=== PATIENT | female | born 1985 | race Caucasian/White ===

== ENCOUNTER → 2017-12-18 17:06 | Outpatient (CLI) | payer OTHER, SELFPAY ==
--- NOTE | 2017-12-18 17:16 | MRI_ITS ---
STUDY: MRI BRAIN WITH AND WITHOUT CONTRAST REASON FOR EXAM: Female, 32 years old. BRAIN LESION WHITE MATTER. 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 Symptoms resolved now TECHNIQUE: Standardized multiplanar fat and water weighted pulse sequences were obtained. 7 ml of Gadavist contrast material was administered intravenously for the contrast portion of the examination. COMPARISON: None. FINDINGS: Normal size of the ventricles and extra-axial spaces for the patient's age. There is increased T2 signal lesion in the periventricular white matter in the left temporal lobe shows mild peripheral enhancement after contrast administration may represent a demyelinating lesion. Normal bilateral basal ganglia. Normal thalami. There is no extra-axial fluid accumulation. Normal flow voids within the major intracranial circulation suggesting patency by spin echo criteria. Normal venous enhancement. There is no enhancing intra-axial or extra-axial abnormality. Normal sella turcica, pituitary gland, infundibular stalk, optic chiasm and hypothalamus. Normal tectal plate and pineal gland. Normal midbrain, loki and medulla. Normal cerebellum. Normal basal cisterns. Normal bilateral temporal bones. Normal bilateral internal auditory canals. No demonstrated orbital abnormality, within the constraints of a routine brain study. Normal visualized paranasal sinuses. Normal calvarium and skull base. Normal visualized soft tissue structures. Normal visualized upper cervical spine. MRI/Brain W/WO Contrast IMPRESSION: There is increased T2 signal lesion in the periventricular white matter in the left temporal lobe shows mild peripheral enhancement after contrast administration may represent a demyelinating lesion. Electronically Signed: Iraj Carrasquillo MD at 7:17 EST Tel , Service support ,
== END ==
PROVIDERS: Family Provider Family Medicine; PCP Family Medicine; Visit Provider Family Medicine
DX: G93.9 Disorder of brain, unspecified (principal)
CPT/HCPCS: 70553; A9585

== ENCOUNTER → 2017-12-26 13:14 | Outpatient (CLI) | payer OTHER, SELFPAY ==
[2017-12-26 14:08] LABS: Color, Urine Yellow (Yellow); Glucose, Dipstick Normal (Normal); Ketone-Dipstick Negative (Negative); Leukocyte Esterase-Dipstick 25 /ul (Negative); Nitrite-Dipstick Negative (Negative); Occult Blood-Urine Negative /ul (Negative); Protein-Dipstick Negative (Negative); Urine Bilirubin Dipstick Negative (Negative); Urine Clarity Sl. Cloudy (Clear); Urine Urobilinogen Normal (Normal); Urine pH 6.5 (5.0 - 8.0)
[2017-12-26 14:14] LABS: Absolute Lymphocyte Count 2.62 X10^3/ul (0.83-4.51); Absolute Neutrophil Count 3.5 X10^3/uL (2.0-7.7); Basophil# 0.03 X10^3/uL; Basophil% 0.4 % (0-1); Eosinophil# 0.11 X10^3/uL; Eosinophils% 1.6 % (0-5); Hematocrit 39.7 % (37-47); Hemoglobin 13.2 g/dl (12.0-15.0); Lymphocyte # 2.62 X10^3/ul (4.0); Lymphocyte % 37.8 % (19-41); Mean Corp Hgb Conc 33.2 g/gl (32-36); Mean Corpuscular Hgb 30.8 pg (27.0-32.0); Mean Corpuscular Volume 92.8 fL (81-99); Mean Platelet Vol. 9.8 fl (6.2-12.0); Monocyte# 0.71 X10^3/uL; Monocyte% 10.2 % (0-10); Neutrophil # 3.45 X10^3/uL (2.7-7.7); Neutrophil % 49.9 % (47-70); Platelet Count 293 K/mm3 (150-450); RBC Distribution Width CV 12.4 % (11.6-14.6); Red Blood Count 4.28 M/mm3 (4.2-5.4); White Blood Count 6.9 K/mm3 (4.4-11.0)
[2017-12-26 14:16] LABS: POSITIVE COUNT NO; POSITIVE DIFFERENTIAL NO; POSITIVE MORPHOLOGY NO
[2017-12-26 14:25] LABS: Erythrocyte Sedimentation Rate 1 mm/hr (0-20)
[2017-12-26 14:51] LABS: Vitamin D,25 Hydroxy 41.7 ng/mL (29.95-100.01)
[2017-12-29 14:14] LABS: ANTINUCLEAR ANTIBODIES DIRECT Negative (Negative)
== END ==
PROVIDERS: Family Provider Family Medicine; PCP Family Medicine; Visit Provider Family Medicine
DX: G93.9 Disorder of brain, unspecified (principal); I73.9 Peripheral vascular disease, unspecified; R43.8 Other disturbances of smell and taste; E55.9 Vitamin D deficiency, unspecified
CPT/HCPCS: 36415; 81002; 82306; 85025; 85652; 86038

== ENCOUNTER → 2019-01-04 13:02 | Outpatient (CLI) | payer OTHER, SELFPAY ==
[2019-01-04 14:49] LABS: Absolute Lymphocyte Count 2.25 X10^3/ul (0.83-4.51); Absolute Neutrophil Count 4.6 X10^3/uL (2.0-7.7); Basophil# 0.05 X10^3/uL; Basophil% 0.7 % (0-1); Eosinophil# 0.07 X10^3/uL; Eosinophils% 0.9 % (0-5); Hematocrit 43.6 % (37-47); Hemoglobin 14.4 g/dl (12.0-15.0); Lymphocyte # 2.25 X10^3/ul (4.0); Lymphocyte % 30.3 % (19-41); Mean Corpuscular Hgb 30.8 pg (27.0-32.0); Mean Corpuscular Volume 93.4 fL (81-99); Mean Platelet Vol. 9.8 fl (6.2-12.0); Monocyte# 0.45 X10^3/uL; Monocyte% 6.1 % (0-10); Neutrophil # 4.58 X10^3/uL (2.7-7.7); Neutrophil % 61.7 % (47-70); Platelet Count 474 K/mm3 (150-450); RBC Distribution Width CV 12.1 % (11.6-14.6); RBC Distribution Width SD 40.7 fl (35.1-43.9); Red Blood Count 4.67 M/mm3 (4.2-5.4); White Blood Count 7.4 K/mm3 (4.4-11.0)
[2019-01-04 14:52] LABS: POSITIVE COUNT NO; POSITIVE DIFFERENTIAL NO; POSITIVE MORPHOLOGY NO
[2019-01-04 14:53] LABS: Erythrocyte Sedimentation Rate 9 mm/hr (0-20)
[2019-01-04 15:01] LABS: ALB/GLOB Ratio 1.1 RATIO (0.9-2.4); AST(SGOT) 17 U/L (15-37); Alanine Aminotransfer ALT/SGPT 28 U/L (13-56); Albumin, Serum 4.2 g/dL (3.2-5.0); Alkaline Phosphatase 62 U/L (45-117); Anion Gap 9 (5-15); BUN 7 mg/dL (7-18); BUN/Creat Ratio 9.8 RATIO (10-20); CPK Total, Creatine Kinase 70 U/L (26-192); CRP < 2.90 mg/L (0.0-3.0); Calcium,Total 9.1 mg/dL (8.5-10.1); Chloride 107 mmol/L (98-107); Creatinine, Serum 0.72 mg/dL (0.55-1.02); EST Glomerular Filtration Rate 99 mL/min (>60); Est Glom Filt Rate - Afr Amer 120 mL/min (>60); Globulin 3.8 g/dL (2.2-4.2); Glucose 85 mg/dL (74-106); Potassium 3.6 mmol/L (3.5-5.1); Sodium Level 143 mmol/L (136-145)
== END ==
PROVIDERS: Family Provider Family Medicine; PCP Family Medicine; Visit Provider Family Medicine
DX: R20.2 Paresthesia of skin (principal); R29.898 Other symptoms and signs involving the musculoskeletal system; R42 Dizziness and giddiness; Z01.818 Encounter for other preprocedural examination
CPT/HCPCS: 36415; 80053; 82550; 85025; 85652; 86140

== ENCOUNTER → 2019-01-12 16:53 | Outpatient (CLI) | payer OTHER, SELFPAY ==
--- NOTE | 2019-01-12 17:30 | MRI_ITS ---
HISTORY: MS, LEFT leg weakness, LEFT arm weakness, paresthesias, imbalance TECHNIQUE: Multiplanar and multisequence MR images of the brain were obtained with and without IV gadolinium. IV Contrast dosage and agent: 12 cc dotarem COMPARISON: None FINDINGS: Interval improvement. The previously seen left temporal lobe white matter lesion is decreased in size, T2 bright, and currently shows no enhancement. Additional stable 7 mm T2 bright focus within the deep white matter posterior to the trigone of the right lateral ventricle and bordering the splenium. No new lesions. Normal ventricles. No intracranial hemorrhage or significant mass-effect. With contrast injection, no pathologic enhancement. Diffusion-weighted images are normal. Posterior fossa and midline structures show no signal abnormality. No suspicious extra-axial fluid collection. Normal flow voids within the major vessels. Normal internal auditory canals and cerebellopontine angle regions. As visualized, the mastoids and paranasal sinuses are clear. MRI/Brain W/WO Contrast IMPRESSION: 1. Interval improvement. The previously seen left temporal lobe white matter lesion is decreased in size and no longer enhances. 2. No new lesion, pathologic enhancement, or active MS plaques identified. at 0641 Reported and signed by: Gordon Souza MD Electronically Signed: Gordon Souza, at 6:39 EDT Tel , Service support ,
== END ==
PROVIDERS: Family Provider Family Medicine; PCP Family Medicine; Referring Provider Family Medicine; Visit Provider Family Medicine
DX: G37.9 Demyelinating disease of central nervous system, unspecified (principal); R20.2 Paresthesia of skin; R29.898 Other symptoms and signs involving the musculoskeletal system
CPT/HCPCS: 70553; A9575

== ENCOUNTER 2024-07-13 07:18 | Inpatient (IN) | payer OTHER, SELFPAY ==
[2024-07-13] VITALS (7 sets, daily range): BP systolic 111–131; BP diastolic 66–79; PULSE 77–100; RESP 11–20; TEMP 36.2–36.7; O2SAT 98–100; BMI 25.0; BMI 24.6
--- NOTE | 2024-07-13 07:48 | CT_ITS ---
STUDY: CT BRAIN WITHOUT CONTRAST REASON FOR EXAM: Female, 39 years old. Dysequilibrium, paresthesias RADIATION DOSAGE (If Supplied By Facility): CTDIvol = ( 44.99 ) mGy, DLP = ( 779.24 ) mGycm TECHNIQUE: Transaxial CT imaging of the brain was performed without administration of intravenous contrast material. Individualized dose optimization techniques were used for this CT. COMPARISON: No relevant priors. FINDINGS: Normal soft tissue structures. Normal calvarium. Normal size ventricles and extra-axial spaces for the patient''s age. Normal white matter tracts of the cerebral hemispheres. Normal basal ganglia and thalami. Normal brainstem. Normal cerebellum. There is no intracranial hemorrhage. There are no findings of an acute ischemic infarction. Normal visualized paranasal sinuses. CT/Brain/Head without Contrast IMPRESSION: Normal unenhanced CT scan of the brain. Electronically Signed: Derrick Cam MD at 8:47 EDT ,
--- NOTE | 2024-07-13 07:50 | EDS_ITS ---
HPI History of Present Illness Chief Complaint: Numb/Ting Informant: patient and parent Narrative Narrative: Patient presents with multiple symptoms that started 1 week ago. She is off balance when she walks. Numbness across to her mid abdomen wrapping around to her back. Stiffness in both of her hands without pain, but making it difficult to write and type for work. Occasional urinary incontinence. Weakness in her right foot yesterday, occasionally catching the front of her shoe on the ground when she would walk. She denies numbness tingling anywhere other than her trunk as above. No other weakness. She denies any vision changes including field of vision and/or blurriness, diplopia. No headaches. No back pain. No fevers. No saddle anesthesia. No chest or abdominal discomfort, shortness of breath, vomiting or diarrhea. No recent injury to her head or anywhere else. She states she had some numbness in the past and subsequently had an MRI with an abnormal lesion, that was suspicious for MS but she does not have the diagnosis because it has not happened again until now. However, this is all very different than it was before. [facility] Home Medications ?Medication ?Instructions ?Recorded ?Last Taken ?Type multivitamin,[id number]-zoja-xoighasd 1 tab PO QDAY 01/29/18 Unknown History (Complete Multivitamin tablet) Allergy/AdvReac Type Severity Reaction Status Date / Time No Known Allergies Allergy Unverified 01/29/18 10:55 Surgical History History of cholecystectomy Social History Smoking Status: Never smoker alcohol intake: current alcohol intake frequency: a few times a month Alcohol type: beer and wine ROS ROS ED Constitutional Constitutional ED: Denies chills or fever(s) Eyes Eyes: Denies change in vision or diplopia ENT ENT ED: Denies rhinorrhea or sore throat Cardiovascular Cardiovascular: Denies chest pain or palpitations Respiratory/Chest Respiratory/Chest: Denies cough or dyspnea Gastrointestinal Gastrointestinal: Denies abdominal pain, diarrhea, nausea or vomiting Genitourinary Genitourinary ED: Reports urinary incontinence; Denies dysuria or hematuria Musculoskeletal Musculoskeletal: Denies back pain or neck pain Integumentary Denies abscess or rash Neurologic Neurologic: Reports disequilibrium and paresthesias; Denies abnormal speech, headache(s), loss of vision, vertigo or weakness Psychiatric Psychiatric: Reports other Details: 1 year ago before the onset of this, I was supposed to get and I called it off. ; Denies suicidal thoughts EXAM Physical Exam Const Vital Signs: 07/13/24 07:19 07/13/24 09:28 07/13/24 11:32 Temperature 97.3 F L 97.4 F L 98.1 F Temperature Source Temporal Oral Oral Pulse Rate 100 88 91 Respiratory Rate 16 12 11 L Blood Pressure 111/74 131/71 H 112/72 Blood Pressure Mean 86 91 85 Pulse Ox 100 100 99 Oxygen Delivery Method Room Air Room Air Room Air Positive well nourished and well developed General Appearance ED: well developed and NAD HEENT Reports moist mucous membranes normocephalic and atraumatic Eyes PERRL and EOMs intact bilaterally Neck full ROM and supple Resp normal respiratory effort and clear to auscultation bilaterally Cardio regular rate, regular rhythm and no murmurs GI non-tender and non-distended Auscultation: normoactive bowel sounds Palpation: soft Back/Spine no CVA tenderness General Back: other FROM Extremity normal to inspection Extremity Narrative: Patient appears to have stiffness in her fingers, but there are no grossly swollen or erythematous joints. General Extremety ED: Negative for edema, pulses abnormal or tenderness General Extremity: Negative for edema or pulses abnormal Neuro oriented x3, CN's II-XII intact bilaterally and no focal motor deficits Neuro Narrative: Decree sensation to sharp provocation left more than right in dermatomal distribution just above the umbilicus, approximately T9. In the back, patient has a more broad area of decreased sharp sensation on the left, but sharp sensation is all normal throughout the right. Normal sensory both hands. Sensorium / Orientation: awake and alert Speech: speech normal Gait (Neuro): other nml except mildly ataxic, see below Motor Exam: strength 5/5 throughout Deep Tendon Reflexes: Rt Triceps (C7): 1+, Lt Triceps (C7): 1+, Rt Biceps (C5, C6): 1+, Lt Biceps (C5, C6): 1+, Rt Brachioradialis (C6): 1+, Lt Brachioradialis (C6): 1+, Rt Patellar (L4): 2+, Lt Patellar (L4): 2+, Rt Ankle (S1): 1+ and Lt Ankle (S1): 1+ Deep Tendon Reflexes Back: Rt Patellar (L4): 2+, Lt Patellar (L4): 2+, Rt Ankle (S1): 1+ and Lt Ankle (S1): 1+ Plantar Reflex: Downgoing: bilateral Coordination: yhurqs-rc-axng test normal, ffbn-zy-vild test normal, No Romberg test normal (initially w/ closing eyes, almost falls. then repeating test, nml.) and other (able to walk to door and back OK, but at end, catches herself against wall) Psych mental status grossly normal Skin no rashes or lesions noted and no wounds MDM MDM MDM Narrative Medical decision making narrative: Labs including liver enzymes are obtained and unremarkable. Also obtained a CT of the head, I reviewed the images and the result which I agree with, it is normal. This is an unusual constellation of symptoms. She has symptoms in a T9 dermatomal pattern that is worse on the left than the right, concerning for a cord process however she has no pain in her back or fevers to suggest transverse myelitis, and she does not have a sensory level below which she has decreased sensation to suggest some other type of dangerous myelopathy, but she is also having symptoms that go along with other possible neurologic issues that would not be related to a cord problem. In addition of this, we attempted to get a urinalysis and the patient but she did not feel the need to go. We did a bladder scan. She had almost 300 cc of urine. She tried to urinate but was unable. For these reasons I am consulting neurology for further recommendations. Patient was eventually able to urinate, the urine shows 500 leukocyte esterase, but there are many more epithelials than white blood cells and no other infection indicators, and it is unclear if her urinary symptoms suggest bladder infection, she has had no dysuria, for those reasons on sending a culture and not treating her as if this is an infection. I spoke with neurology. Their recommendation given all of this is MRI of brain with and without contrast, MRI cervical and thoracic spine with and without contrast. They state they do not need to evaluate her clinically right now, they recommend admission and we will put her on their list for consults tomorrow. They state if all of this is negative they may then recommend a lumbar puncture. Lab Data Attestation: I reviewed the patient's lab results. Labs: Laboratory Results - last 24 hr 07/13/24 07/13/24 08:05 10:55 WBC 10.7 RBC 4.69 Hgb 14.4 Hct 43.0 MCV 91.7 MCH 30.7 MCHC 33.5 RDW Std Deviation 39.6 RDW Coeff of Hiram 11.7 Plt Count 437 MPV 9.5 Immature Gran % (Auto) 0.600 Neut % (Auto) 70.2 H Lymph % (Auto) 18.1 L [place] % (Auto) 9.4 Eos % (Auto) 0.9 Baso % (Auto) 0.8 Absolute Neuts (auto) 7.5 Absolute Lymphs (auto) 1.93 Nucleated RBC % 0 Sodium 140 Potassium 4.0 Chloride 107 Carbon Dioxide 21.0 Anion Gap 12 BUN 13 Creatinine 0.78 Estim Creat Clear Calc 90.53 Est GFR (MDRD) Af Amer 106 Est GFR (MDRD) Non-Af 88 BUN/Creatinine Ratio 16.7 Glucose 79 Calcium 9.5 Total Bilirubin 1.10 H AST 20 ALT 29 Alkaline Phosphatase 52 Total Protein 7.6 Albumin 4.0 Globulin 3.6 Albumin/Globulin Ratio 1.1 Urine Color Yellow Urine Clarity Sl. Cloudy Urine pH 6.0 Ur Specific [place] 1.025 Urine Protein 30 H Urine Glucose (UA) Normal Urine Ketones 150 A* Urine Occult Blood Negative Urine Nitrite Negative Urine Bilirubin Negative Urine Urobilinogen 1 H Ur Leukocyte Esterase 500 H Urine RBC 0 SEEN Urine WBC 5-10 SEEN Ur Squamous Epith Cells 10-25 SEEN Amorphous Sediment 1+ Urine Bacteria 3+ Urine Mucus 1+ Radiography Diagnostic Testing: Clinical Impression(s) from Imaging Studies Brain CT 07/13/24 07:48 IMPRESSION: Normal unenhanced CT scan of the brain. Electronically Signed: Derrick Cam MD at 8:47 EDT , Management Discussion w/another healthcare provider: Hospitalist and Monitoring Manager (telenerafia Queen) Discharge Plan Triage Chief Complaint: Numb/Ting ED Provider: Michael Waterman Dx/Rx/DC Orders Clinical Impression: Paresthesias, Urinary incontinence, Dysequilibrium, Stiffness of joints of both hands Prescriptions: No Action multivitamin,[id number] [Complete Multivitamin] tablet 1 tab PO QDAY Primary Care Provider: Filippo Huang Referrals: Filippo Huang DO [Primary Care Provider] - Print Language: [place] Disposition Disposition: Acute Care [facility]
[2024-07-13 08:22] LABS: Absolute Lymphocyte Count 1.93 X10^3/uL (0.83-4.51); Absolute Neutrophil Count 7.5 X10^3/uL (2.0-7.7); Basophil# 0.09 X10^3/uL; Basophil% 0.8 % (0-1); Eosinophils% 0.9 % (0-5); Hemoglobin 14.4 g/dL (12.0-15.0); Lymphocyte # 1.93 X10^3/ul (0.83-4.51); Lymphocyte % 18.1 % (19-41); Mean Corp Hgb Conc 33.5 g/dL (32-36); Mean Corpuscular Hgb 30.7 pg (27.0-32.0); Mean Corpuscular Volume 91.7 fL (81-99); Mean Platelet Vol. 9.5 fl (6.2-12.0); Monocyte% 9.4 % (0-10); NRBC Flagged by Analyzer 0 % (0-5); Neutrophil # 7.49 X10^3/uL (2.7-7.7); Neutrophil % 70.2 % (47-70); Platelet Count 437 K/mm3 (150-450); RBC Distribution Width CV 11.7 % (11.6-14.6); RBC Distribution Width SD 39.6 fl (35.1-43.9); Red Blood Count 4.69 M/mm3 (4.2-5.4); White Blood Count 10.7 K/mm3 (4.4-11.0)
[2024-07-13 08:36] LABS: ALB/GLOB Ratio 1.1 RATIO (0.9-2.4); AST(SGOT) 20 U/L (15-37); Alanine Aminotransfer ALT/SGPT 29 U/L (13-56); Alkaline Phosphatase 52 U/L (45-117); Anion Gap 12 (5-15); BUN 13 mg/dL (7-18); BUN/Creat Ratio 16.7 RATIO (10-20); Calcium,Total 9.5 mg/dL (8.5-10.1); Chloride 107 mmol/L (98-107); Creatinine, Serum 0.78 mg/dL (0.55-1.02); EST Glomerular Filtration Rate 88 mL/min (>60); Est Glom Filt Rate - Afr Amer 106 mL/min (>60); Estimated Creatinine Clearance 90.53 ml/min; Globulin 3.6 g/dL (2.2-4.2); Glucose 79 mg/dL (74-106); Protein, Total 7.6 g/dL (6.4-8.2); Sodium Level 140 mmol/L (136-145)
--- NOTE | 2024-07-13 09:32 | ED.RN ---
PT ATTEMPTED TO VOID AFTER BLADDER SCAN. PT DENIES FEELING THE NEED TO VOID AND WAS UNABLE TO WHEN TRIED. PHYSICIAN AWARE
[2024-07-13 11:05] LABS: Red Blood Cells-Urine 0 SEEN /hpf (0-5)
[2024-07-13 11:07] LABS: Color, Urine Yellow (Yellow); Glucose, Dipstick Normal (Normal); Leukocyte Esterase-Dipstick 500 /ul (Negative); Nitrite-Dipstick Negative (Negative); Occult Blood-Urine Negative /ul (Negative); Protein-Dipstick 30 mg/dl (Negative); Specific Gravity, Urine 1.025 (1.002-1.030); Urine Bilirubin Dipstick Negative (Negative); Urine Clarity Sl. Cloudy (Clear); Urine Urobilinogen 1 mg/dl (Normal)
[2024-07-13 11:10] LABS: Ketone-Dipstick 150 mg/dl (Negative)
[2024-07-13 11:38] LABS: Bacteria 3+ /hpf (None Seen); Squamous Epithelial Cells - UA 10-25 SEEN /hpf (5-10); White Blood Cells 5-10 SEEN /hpf (0-5)
[2024-07-13 11:39] LABS: Mucous, Urine 1+ /hpf (<or=2+)
[2024-07-13 11:40] LABS: Amorphous Sediment 1+
--- NOTE | 2024-07-13 13:00 | MRI_ITS ---
INDICATION: Numbness across mid abdomen, suspected MS EXAMINATION: MRI - MR Spine Thoracic WO/W Contrast TECHNIQUE: Multiplanar and multisequence MR images of the thoracic spine. IV Contrast Dosage and Agent: 13 cc Clariscan COMPARISON: None. FINDINGS: VERTEBRAE: No acute fracture. Normal vertebral bodies and posterior elements. VERTEBRAL ALIGNMENT: Normal. There is preservation of the normal thoracic kyphosis. DISCS: 2 mm right paracentral focal disc protrusion at T7-8 encroaching on the thecal sac. Otherwise normal. Central canal and neural foramina. CORD: Unremarkable in signal and morphology. Normal conus medullaris. SOFT TISSUES: No abnormal soft tissue enhancement. MRI/Spine Thoracic W/WO Contrast IMPRESSION: 2 mm right paracentral focal disc protrusion at T7-8 with encroachment on the thecal sac. Electronically Signed: Vladimir Macias MD at 20:42 EDT ,
--- NOTE | 2024-07-13 13:04 | PCM.HP.STD ---
HPI - General General Date of Admission: 07/13/24 Date of Service: 07/13/24 Chief Complaint: Numbness intermittently around her mid abdomen for last week. HPI Narrative NIYAH CARRANZA, is a 39 F came to ED with multiple symptoms for about 1 week. She describes as numbness around her mid abdomen front and back which is localized with some twitching movements of right lower extremity intermittently. It is not periodic or in a pattern. 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 For last few days in the past week she had intermittent urinary incontinence felt like urge incontinence with leaking of urine. Denies burning micturition. Denies fever or flulike symptoms. Her medical history starts from 2011 when she had diplopia/crossed eye and had MRI of brain and was some lesion was found. That lesion was followed for next several years without any diagnosis because there were small. In about 2017, she underwent divorce and had distress and felt like her right upper extremity stiffness or not in good control and thought it is from the stress. She is not yet diagnosed with a neurological condition including MS. In ED, the ER physician talked to [facility] neurologist and advised MRI brain, C-spine and thoracic spine with and without contrast that have been ordered. Patient is further admitted Patient's symptom complex does not relate to acute or subacute or strokelike symptoms as her symptoms are like about 1 week. In ED, stroke alert was not indicated and therefore not called. She denies smoking history. Drinks beer and wine few times in a month. Denies substance use. [facility] Home Medications ?Medication ?Instructions ?Recorded ?Last Taken ?Type multivitamin,cc-ioff-wieqcnci 1 tab PO QDAY 01/29/18 Unknown History (Complete Multivitamin tablet) Allergy/AdvReac Type Severity Reaction Status Date / Time No Known Allergies Allergy Unverified 01/29/18 10:55 Surgical History History of cholecystectomy Social History Smoking Status: Never smoker alcohol intake: current alcohol intake frequency: a few times a month Alcohol type: beer and wine ROS ROS Narrative Constitutional: Denies fatigue and weakness. No fever. HEENT: Reports systems reviewed and no addt'l complaints, except as documented Respiratory/Chest: No acute shortness of breath or respiratory distress or wheezing. CVS: Denies chronic heart disease. No chest pain or shortness of breath. Gastrointestinal: Denies coffee ground emesis, hematemesis or vomiting Genitourinary: Denies burning urination. Rest as described in HPI Musculoskeletal: Denies acute joint pain or limited range of motion. No acute injury Neurologic: Denies seizure-like symptoms. As described in HPI skin: No ulcer. No rash Endocrinology: Reports systems reviewed and no addt'l complaints, except as documented Hematologic/Lymphatic: Reports systems reviewed and no addt'l complaints, except as documented Rest 14 ROS are negative except as mentioned in HPI Vital Signs Vital Signs Vital Signs: 07/13/24 07:19 07/13/24 09:28 07/13/24 11:32 Temperature 97.3 F L 97.4 F L 98.1 F Temperature Source Temporal Oral Oral Pulse Rate 100 88 91 Respiratory Rate 16 12 11 L Blood Pressure 111/74 131/71 H 112/72 Blood Pressure Mean 86 91 85 Pulse Ox 100 100 99 Oxygen Delivery Method Room Air Room Air Room Air Weight Weight: 145 lb 8.081 oz Body Mass Index (BMI) 25.0 Physical Exam Narrative General: Alert, Oriented x3, Cooperative HEENT: Atraumatic, PERRLA, EOMI, Normocephalic Oral: Oral mucosa moist. No Gingival or Mucosal Lesions/ Ulcerations Neck: Supple, No JVD, Negative Carotid Bruits Chest wall/Lungs: Air entry diminished in bilateral lung bases. No crepitation/rhonchi Cardiovascular: Regular rate, Regular Rhythm, Normal S1, Normal S2, No M/G/R Abdomen: Bowel Sounds Present, Soft, Non Tender, Non-Distended : No dysuria. No renal angle tenderness. No suprapubic tenderness. Extremities: No edema, Capillary Refill Less than 3 Seconds Skin: No rashes, No breakdown Musculoskeletal: No Tenderness to Palpation of Joints or Extremities. ROM full and intact. Neurological: Cranial nerves II-XII grossly intact, DTR 2+/4. Muscle strength 5/5 at major joints. No acute focal neurological deficit. Psych/Mental Status: Normal Affect, Appropriate. Results Lab / Micro Data 07/13/24 08:05 07/13/24 08:05 Labs: Laboratory Results - last 24 hr 07/13/24 08:05: WBC 10.7, RBC 4.69, Hgb 14.4, Hct 43.0, MCV 91.7, MCH 30.7, MCHC 33.5, RDW Std Deviation 39.6, RDW Coeff of Hiram 11.7, Plt Count 437, MPV 9.5, Immature Gran % (Auto) 0.600, Neut % (Auto) 70.2 H, Lymph % (Auto) 18.1 L, [place] % (Auto) 9.4, Eos % (Auto) 0.9, Baso % (Auto) 0.8, Absolute Neuts (auto) 7.5, Absolute Lymphs (auto) 1.93, Nucleated RBC % 0, Sodium 140, Potassium 4.0, Chloride 107, Carbon Dioxide 21.0, Anion Gap 12, BUN 13, Creatinine 0.78, Estim Creat Clear Calc 90.53, Est GFR (MDRD) Af Amer 106, Est GFR (MDRD) Non-Af 88, BUN/Creatinine Ratio 16.7, Glucose 79, Calcium 9.5, Total Bilirubin 1.10 H, AST 20, ALT 29, Alkaline Phosphatase 52, Total Protein 7.6, Albumin 4.0, Globulin 3.6, Albumin/Globulin Ratio 1.1 07/13/24 10:55: Urine Color Yellow, Urine Clarity Sl. Cloudy, Urine pH 6.0, Ur Specific [place] 1.025, Urine Protein 30 H, Urine Glucose (UA) Normal, Urine Ketones 150 A*, Urine Occult Blood Negative, Urine Nitrite Negative, Urine Bilirubin Negative, Urine Urobilinogen 1 H, Ur Leukocyte Esterase 500 H, Urine RBC 0 SEEN, Urine WBC 5-10 SEEN, Ur Squamous Epith Cells 10-25 SEEN, Amorphous Sediment 1+, Urine Bacteria 3+, Urine Mucus 1+ Imaging Radiology Impression Brain CT 07/13/24 07:48 IMPRESSION: Normal unenhanced CT scan of the brain. Electronically Signed: Derrick Cam MD at 8:47 EDT , Assessment & Plan Assessment/Plan (1) Dysequilibrium: (2) Paresthesias: PLAN: Plan This is a 39-year-old female being admitted with nonspecific symptoms of numbness around middle abdomen wraps around trunk localized insomnia stiffness and bilateral hand with sometimes urge incontinence 1. Nonspecific neuromuscular symptoms of numbness, stiffness of hand, twitching of lower extremity and urge incontinence: Patient is being admitted in PCU. Does not need telemetry. MRI brain, C-spine and thoracic spine with and without contrast ordered. [facility] neurology consult after MRIs done and further management as per imaging. Unenhanced CT of the brain was reported normal. IV fluid half-normal saline patient urine looks dark. U tox ordered. Supportive treatment 2. Abnormal UA with recent urge incontinence: UA shows WBC 5-10 cells, Cefadyl 10-25 cells indicative of not good UA sample. LE 500. Bacteria 3+. Urine culture is ordered. U tox ordered. 3. DVT prophylaxis: Low risk early ambulation encouraged. No prophylaxis indicated Patient does not have living will or advanced directive. Her mom sitting in the ED is next to kin. Full code but Laboratory Results 07/13/24 08:05: WBC 10.7, RBC 4.69, Hgb 14.4, Hct 43.0, MCV 91.7, MCH 30.7, MCHC 33.5, RDW Std Deviation 39.6, RDW Coeff of Hiram 11.7, Plt Count 437, MPV 9.5, Immature Gran % (Auto) 0.600, Neut % (Auto) 70.2 H, Lymph % (Auto) 18.1 L, [place] % (Auto) 9.4, Eos % (Auto) 0.9, Baso % (Auto) 0.8, Absolute Neuts (auto) 7.5, Absolute Lymphs (auto) 1.93, Nucleated RBC % 0, Sodium 140, Potassium 4.0, Chloride 107, Carbon Dioxide 21.0, Anion Gap 12, BUN 13, Creatinine 0.78, Estim Creat Clear Calc 90.53, Est GFR (MDRD) Af Amer 106, Est GFR (MDRD) Non-Af 88, BUN/Creatinine Ratio 16.7, Glucose 79, Calcium 9.5, Magnesium Pending, Total Bilirubin 1.10 H, AST 20, ALT 29, Alkaline Phosphatase 52, Total Protein 7.6, Albumin 4.0, Globulin 3.6, Albumin/Globulin Ratio 1.1 07/13/24 10:55: Urine Color Yellow, Urine Clarity Sl. Cloudy, Urine pH 6.0, Ur Specific [place] 1.025, Urine Protein 30 H, Urine Glucose (UA) Normal, Urine Ketones 150 A*, Urine Occult Blood Negative, Urine Nitrite Negative, Urine Bilirubin Negative, Urine Urobilinogen 1 H, Ur Leukocyte Esterase 500 H, Urine RBC 0 SEEN, Urine WBC 5-10 SEEN, Ur Squamous Epith Cells 10-25 SEEN, Amorphous Sediment 1+, Urine Bacteria 3+, Urine Mucus 1+ Clinical Impression(s) from Imaging Studies Brain CT 07/13/24 07:48 IMPRESSION: Normal unenhanced CT scan of the brain. Charges/Coding Visit Charges Inpatient E&M: 10708 Init Hosp L3
--- NOTE | 2024-07-13 14:09 | MRI_ITS ---
EXAM: MR CERVICAL SPINE WITHOUT AND WITH INTRAVENOUS CONTRAST CLINICAL INDICATION: Suspected stroke with possible MS -- Stiffness in both of her hands without pain. TECHNIQUE: Multiplanar and multisequence MR images of the cervical spine without and with intravenous contrast were performed. High-field strength MRI. CONTRAST: 13 cc of Clariscan IV. COMPARISON: No relevant prior studies available. FINDINGS: VERTEBRAE: See below. SPINAL CORD: See below. SOFT TISSUES: Edema centrally within the cervical spinal cord over a length of approximately 4.2 cm from inferior C2 through upper C5. At the mid point the edema involves the entire diameter of the cord. There is a 2nd smaller lesion measuring about 1 cm centrally at the C2 level. There is enhancement of the right lateral aspect of the cord over a length of approximately 1.6 cm from C3 through C4. No enhancement of the smaller lesion at C2 level. No prevertebral soft tissue swelling. LYMPH NODES: Unremarkable. There is no cervical adenopathy. DISCS/SPINAL CANAL/NEURAL FORAMINA: C2-C3: Unremarkable. Normal disc height and morphology. Normal spinal canal. Normal neuroforamina. C3-C4: Unremarkable. Normal disc height and morphology. Normal spinal canal. Normal neuroforamina. C4-C5: Unremarkable. Normal disc height and morphology. Normal spinal canal. Normal neuroforamina. C5-C6: Unremarkable. Normal disc height and morphology. Normal spinal canal. Normal neuroforamina. C6-C7: Unremarkable. Normal disc height and morphology. Normal spinal canal. Normal neuroforamina. C7-T1: Unremarkable. Normal disc height and morphology. Normal spinal canal. Normal neuroforamina. MRI/Spine Cervical W/WO Contrast IMPRESSION: Demyelinating lesion in the cervical cord with edema from C2 through C5 with some expansion of the cord. Within this there is a focal area of enhancement in the right periphery of the cord over a length of 1.6 cm from C3 through C4. Probable acute multiple sclerosis plaque given the patient''s history. There is a 2nd smaller lesion at the C2 level that does not demonstrate enhancement. Transverse myelitis can have a similar appearance but the lesion is typically more central. Electronically Signed: Geovany Wilson MD at 3:55 EDT ,
--- NOTE | 2024-07-13 14:09 | MRI_ITS ---
EXAM: MR HEAD WITHOUT AND WITH INTRAVENOUS CONTRAST CLINICAL INDICATION: Suspected stroke TECHNIQUE: Multiplanar and multisequence MR images of the brain were obtained without and with intravenous contrast. CONTRAST: IV 13ml clariscan COMPARISON: Nonenhanced cranial CT of 07/13/2024. Cranial MR of 01/12/2019. FINDINGS: BRAIN AND EXTRA-AXIAL SPACES: The T2 hyperintensity lesion within the left temporal deep white matter is again noted, and has decreased in size, now measuring 3.5 mm in diameter on the axial images, as compared with 7 mm on the prior study. There is no abnormal enhancement in this area. An elongated focus of T2 hyperintensity has developed within the subependymal parenchyma adjacent to the left occipital horn, with this white matter lesion radiating anteriorly into the left temporal deep white matter where it abuts the above-noted chronic lesion, as noted on parasagittal images 18-20 of series 4. This lesion also radiates superiorly, abutting the trigone of the left lateral ventricle, which is new. This lesion shows no abnormal enhancement. The T2 hyperintense lesion adjacent to the trigone of the right lateral ventricle is again noted, stable in size, and without abnormal enhancement. There has been interval development of an approximately 12 mm ovoid focus of T2 hyperintensity within the right temporal lobe, abutting the right temporal horn. There is no abnormal enhancement in this region. Diffusion-weighted images show no restricted diffusion to indicate acute infarction. Ventricles remain normal in size and shape. No intra- or extra-axial hemorrhage. No intracranial mass or mass effect. Basal cisterns are patent. No white matter lesions are aligned perpendicular to the lateral ventricular bodies. No signal abnormalities are noted within the basal ganglia or periaqueductal parenchyma. No signal abnormalities are noted within the brainstem or cerebellum. SELLA: Unremarkable. Normal sella turcica, pituitary gland, infundibular stalk, optic chiasm and hypothalamus. AUDITORY SYSTEM: The seventh/8th cranial nerve complexes are symmetric. BONES/JOINTS: T2-weighted images show hyperintensity and expansion of the cervical cord as discussed on the current cervical MR report. No discrete lytic or blastic abnormalities. SINUSES: Unremarkable as visualized. Clear. MASTOID AIR CELLS: Unremarkable as visualized. Clear. ORBITS: Unremarkable as visualized. Both globes, extraocular muscles, optic nerves and retrobulbar fat appear unremarkable. VASCULATURE: Unremarkable as visualized. Normal flow voids in the major intracranial circulation. MRI/Brain W/WO Contrast IMPRESSION: No acute infarction identified. Findings of demyelinating disease again demonstrated; the left temporal deep white matter lesion has decreased in size, and there is a stable lesion adjacent to the trigone of the right lateral ventricle. There is a new T2 hyperintense lesion adjacent to the left occipital horn, radiating superiorly adjacent to the trigone of the left lateral ventricle, and there is a new T2 hyperintense lesion within the right temporal lobe. None of these lesions demonstrate abnormal enhancement. Electronically Signed: Polo Mcdonough MD at 6:08 EDT ,
[2024-07-13 14:31] LABS: Cholesterol 127 mg/dL (200); High Density Lipoprotein 57 mg/dL; Triglycerides 81 mg/dL; Very Low Density Lipoprotein 16 mg/dL (5-40)
[2024-07-13 16:15] LABS: Amphetamine Urine VISTA NEGATIVE (<1000 ng/mL); Barbiturate Urine VISTA NEGATIVE (< 200 ng/mL); Benzodiazepine Urine VISTA NEGATIVE (< 200 ng/mL); Cocaine Urine VISTA NEGATIVE (< 300 ng/mL); Ecstacy Urine VISTA NEGATIVE (< 500 ng/mL); Methadone Urine VISTA NEGATIVE (< 300 ng/mL); PCP Urine VISTA NEGATIVE (< 25 ng/mL); THC Urine VISTA NEGATIVE (< 50 ng/mL); Vista UDS pH Range 5
[2024-07-13] MEDS: 0.9% Saline Lock 10 ML Syringe IV (21:27)
[2024-07-14 03:30] VITALS: BP 129/72; PULSE 89; RESP 17; TEMP 36.8; O2SAT 100
[2024-07-14] MEDS: Multivitamins,Ther W-Minerals Tablet 1 TABLET PO (07:52)
[2024-07-14 07:59] VITALS: O2SAT 99
[2024-07-14 08:03] LABS: Vitamin B12 683 pg/mL (211-911)
[2024-07-14 08:33] LABS: Anion Gap 4 (5-15); BUN 13 mg/dL (7-18); Calcium,Total 9.4 mg/dL (8.5-10.1); Chloride 108 mmol/L (98-107); Creatinine, Serum 0.72 mg/dL (0.55-1.02); EST Glomerular Filtration Rate 95 mL/min (>60); Est Glom Filt Rate - Afr Amer 115 mL/min (>60); Estimated Creatinine Clearance 90.59 ml/min; Glucose 88 mg/dL (74-106); Potassium 4.2 mmol/L (3.5-5.1); Sodium Level 138 mmol/L (136-145)
[2024-07-14 08:51] VITALS: BP 122/75; PULSE 97; RESP 18; TEMP 36.6; O2SAT 100
--- NOTE | 2024-07-14 12:25 | CASEMGMT ---
RN CM VP SECURITIES CM?to room to meet with patient for initial transition planning/care coordination assessment. RN CM?introduced self and role at [facility]. Pt voices understanding and consents to assessment?at this time. Pt resting in bed in no distress at this time. Pt is A/O at this time and answers all questions appropriately. Care providers, pharmacy, and demographics verified/updated at this time. Strata:?1 PCP: Dr Huang Specialists: Pt goes to natural/homeopathic facility in [place] and sees Holly Klein Preferred Pharmacy: [facility] Retail Insurance:MMO Prescription Benefit: yes Living Will/HPOA: Pt does not currently have LW/HCPOA and would like to complete, if SW available. NEAL Chase, made aware. Pt aware if SW unavailable to meet w/her prior to discharge, AD can be done w/SW as an OP. LNOK: MotherStacie Living Arrangements: Pt has 2 children, ages 17 and 14 who stay w/pt part of the time and w/their dad part of the time. Pt is independent. Transportation:Pt states drives self and states no transportation concerns at this time. DME: Denies using any DME. HHC/SNF: No hx of either. Pt wishes to return home and states has no concerns with going home at time of discharge. CM?to follow for any discharge planning/needs. PLAN: Home Eriberto AYON RN, CM
--- NOTE | 2024-07-14 12:52 | NEURO.CONS ---
Assessment and Plan: Neuro Assessment/Plan NIYAH CARRANZA is a 39 F with a past medical history of CIS, being evaluated by Teleneurology for possible MS flare. Pt on history has had at least 3 distinct clinical episodes, each of these were associated it seems with imaging findings. The first event sounded like a FILEMON and there is a lesion in her brainstem. The second lesion affected her R arm with a corresponding L periventricular lesion with enhancement. This current event sounds like there is involvement of the cord (thoracic and cervical) and there is a new lesion in the Cervical spine with enhancement. Clinically she likely has a thoracic lesion but none seen on imaging (although this may be an effect of the imaging). In addition there is a new periventricular lesion in the R temporal horn with no enhancement. Taken together, pt meets clinical criteria for MS. With the edema in the cervical cord however, would consider evaluating for MS mimics as well including MOGAD and NMO. Plan: - Please initiate methylprednisolone for pt's flare - recommend starting 1000mg IVMP for 5 days. If pt glucose and BP stable for 3 days the last 2 days can be an oral regiment completed outpatient - Please monitor BP and glucose on IVMP and start GI PPI. - please obtain LP and send the following labs: cell count, protein, glucose, cytology, flow cytometry, oligoclonal bands, myelin basic protein, DIONNE virus (may be send out), VDRL - please obtain the following serum labs: anti MOG (may be sendout), anti NMO (may be sendout), Vitamin D, ASA, lyme antibody, IL2, IgG infex, NARESH, HIV, HTLV1, Vitamin B12, LFTs, TSH For followup, recommend Neurology followup with MS specialist in 1-3 months. Pt has request followup in [place]. Recommend getting assistance from Case Management to see if patient can have an appointment set up prior to leaving. Patient can followup with [facility] - will place a referral in our system for followup within the next month in case patient is unable to find a provider in [place]. Will continue to follow patient daily and closely. I personally attended this patient and spent a total time of 75 minutes evaluating this patient including clinical assessment, review of chart, medical history imaging, and determining appropriate treatment and workup. HPI Consult Data Date of Consult: 07/14/24 HPI Narrative HPI Narrative: NIYAH CARRANZA, is a 39 F who presents with concern of new MS flare NIYAH CARRANZA, is a 39 F came to ED with multiple symptoms for about 1 week. She describes as numbness around her mid abdomen front and back which is localized with some twitching movements of right lower extremity intermittently. It is not periodic or in a pattern. 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 For last few days in the past week she had intermittent urinary incontinence felt like urge incontinence with leaking of urine. Denies burning micturition. Denies fever or flulike symptoms. Her medical history starts from 2011 when she had diplopia/crossed eye and had MRI of brain and was some lesion was found. That lesion was followed for next several years without any diagnosis because there were small. In about 2018, she underwent divorce and had distress and felt like her right upper extremity stiffness or not in good control and thought it is from the stress. She is not yet diagnosed with a neurological condition including MS. In ED, the ER physician talked to [facility] neurologist and advised MRI brain, C-spine and thoracic spine with and without contrast that have been ordered. Patient is further admitted Patient presents with multiple symptoms that started 1 week ago. She is off balance when she walks. Numbness across to her mid abdomen wrapping around to her back. Stiffness in both of her hands without pain, but making it difficult to write and type for work. Occasional urinary incontinence. Weakness in her right foot yesterday, occasionally catching the front of her shoe on the ground when she would walk. She denies numbness tingling anywhere other than her trunk as above. No other weakness. She denies any vision changes including field of vision and/or blurriness, diplopia. No headaches. No back pain. No fevers. No saddle anesthesia. No chest or abdominal discomfort, shortness of breath, vomiting or diarrhea. No recent injury to her head or anywhere else. Neurologic History: The above history was confirmed. In 2018 had a followup visit and may have had some arm stiffness and in 2018 was also told unlikely related to MS and no new lesions seen. No other new symptoms of numbness, weakness, stiffness, or clumsiness that was new. No new diplopia. Had slight one of urinary incontinence, just happened once - this is not normal for her. No difficulty with bladder spasticity. No diplopia. Feels a tight sensation and numbness around hi upper abdomen. Feels improved today. Also noting stiffness in the hands. Having weakness in the R foot but no clear difficulty walking, no falls. Denies eyes pain or difficulty with vision. No vaccines recently, No recent URI or respiratory illness. Only on MVI at home. She had a stressful event in June and brought some of these events on. No new rashes. PFSH Home Medications ?Medication ?Instructions ?Recorded ?Last Taken ?Type multivitamin,kv-ndcb-ukpcadal 1 tab PO QDAY 01/29/18 Unknown History (Complete Multivitamin tablet) Allergy/AdvReac Type Severity Reaction Status Date / Time No Known Allergies Allergy Unverified 01/29/18 10:55 Surgical History History of cholecystectomy Social History Smoking Status: Never smoker alcohol intake: current alcohol intake frequency: a few times a month Alcohol type: beer and wine Vital Signs Vital Signs Vital Signs: 07/13/24 13:07 07/13/24 13:07 07/13/24 14:15 Temperature 97.3 F L 97.2 F L Temperature Source Oral Pulse Rate 89 89 Respiratory Rate 20 H 16 Blood Pressure 114/68 114/68 Blood Pressure Mean 83 83 Blood Pressure Source Blood Pressure Position Blood Pressure Location Pulse Ox 98 98 100 Oxygen Delivery Method Room Air Room Air 07/13/24 14:26 07/13/24 21:12 07/14/24 03:30 Temperature 97.6 F L 97.2 F L 98.3 F Temperature Source Temporal Temporal Oral Pulse Rate 77 84 89 Respiratory Rate 16 18 17 Blood Pressure 120/66 119/79 129/72 H Blood Pressure Mean 84 92 91 Blood Pressure Source Monitor Monitor Monitor Blood Pressure Position Semi-Fowlers Semi-Fowlers Semi-Fowlers Blood Pressure Location Right Arm Right Arm Right Arm Pulse Ox 100 98 100 Oxygen Delivery Method Room Air Room Air Room Air 07/14/24 07:59 07/14/24 08:06 07/14/24 08:51 Temperature 97.9 F Temperature Source Oral Pulse Rate 97 Respiratory Rate 18 Blood Pressure 122/75 H Blood Pressure Mean 90 Blood Pressure Source Monitor Blood Pressure Position Sitting Blood Pressure Location Right Arm Pulse Ox 99 100 Oxygen Delivery Method Room Air Room Air Room Air Weight Weight: 65.2 kg Body Mass Index (BMI) 24.6 EEG Results Procedure Details EEG Procedure Details: NIYAH CARRANZA is a 39 year old F with a past medical history of , who presents for evaluation of Electroencephalogram on DATE at TIME Physical Exam Narrative -? General: Laying comfortably in bed; in no acute distress. -? HENT: Normal oropharynx and mucosa. Normal external appearance of ears and nose. Exophthalmos. -? Neck: Supple, no pain or tenderness -? CV:? No peripheral edema. -? Pulmonary:? Normal respiratory effort. -? Ext: No cyanosis, edema, or deformity -? Skin: No rash. Normal palpation of skin.? -? Musculoskeletal: full range of motion; no joint tenderness. Normal digits and nails by inspection. No clubbing. -? NEURO: -? Mental Status: The patient was alert and oriented to time, place, and person. Normal recent/remote memory, concentration, and general fund of knowledge. -? Language: speech is clear.? Naming, repetition, fluency, and comprehension intact. -? Cranial Nerves: PERRL 3 mm/brisk. EOMI, visual grey full, no facial asymmetry, facial sensation intact, hearing intact, tongue midline, no evidence of atrophy or fibrillations. -? Motor: drift and pronation of the RUE, drift RLE R L SA 4 5 EE 5 5 EF 4 5 WE WF Cocoa Room Operator 5- 5 HF 3 5- KE 5 5 KF 5 5 DF 4 5 PF -?Detailed reflex exam as performed by the nurse/SALLY and witnessed by the physician: R L Biceps 2 2 Patellar 1 2 Ankle Babinski up down -? Tone: is normal and bulk is normal -? Sensation- Intact to light touch bilaterally, vibration dim b/l but R worse than L, cant feel the vibration on the R foot at all; proprioception intact b/l; no sensory level on pinprick in thoracic region, none in the arms or legs -? Coordination: No dysmetria on [id number]-thaw-waozur, finger follow finger or [id number]. -? Gait- Gait initiation was normal. Narrow base with good heel strike and stride length was observed during ambulation. Turns were in stride. Patient was able to walk normally in tandem. Romberg was normal. Lab / Micro Data 07/13/24 08:05 07/14/24 05:54 Labs: Laboratory Results - last 24 hr 07/13/24 08:05: Magnesium 2.0, Triglycerides 81, Cholesterol 127, LDL Cholesterol 54, VLDL Cholesterol 16, HDL Cholesterol 57 07/13/24 10:55: Urine Opiates Screen NEGATIVE, Urine Methadone Screen NEGATIVE, Ur Barbiturates Screen NEGATIVE, Ur Phencyclidine Scrn NEGATIVE, Ur Amphetamines Screen NEGATIVE, MDMA (Ecstasy) Screen NEGATIVE, U Benzodiazepines Scrn NEGATIVE, Urine Cocaine Screen NEGATIVE, U Cannabinoids Screen NEGATIVE, Ur Drug Screen Comment 07/14/24 05:54: Sodium 138, Potassium 4.2, Chloride 108 H, Carbon Dioxide 26.0, Anion Gap 4 L, BUN 13, Creatinine 0.72, Estim Creat Clear Calc 90.59, Est GFR (MDRD) Af Amer 115, Est GFR (MDRD) Non-Af 95, BUN/Creatinine Ratio 18.0, Glucose 88, Calcium 9.4, Vitamin B12 683, Folate 17.50, TSH 2.130 Micro: Microbiology 07/13/24 10:55 Interface Orders Urine Culture - Final Mixed Gram Positive Organisms Active Medications Active Medications Active Medications: Current Medications Generic Name Dose Route Start Last Admin Trade Name Freq PRN Reason Stop Dose Admin Lorazepam 0.5 mg 07/13/24 17:17 Lorazepam 0.5 Mg Tablet PO X1 PRN ANXIETY Multivitamins/Minerals 1 tablet 07/14/24 08:00 07/14/24 07:52 Multivitamins,Ther W-Minerals Tablet PO 1 tablet BREAKFAST SINGH Administration Sodium Chloride 10 - 40 ml 07/13/24 14:22 07/13/24 21:27 0.9% Saline Lock 10 Ml Syringe IV 10 ml UD PRN Administration SALINE FLUSH
--- NOTE | 2024-07-14 14:38 | CASEMGMT ---
Per RN CM patient would like to complete a Healthcare Power of Senior Professional Services Consultant. SW completed document with patient. Copies were made and given to patient along with original. A copy was also placed in patient's chart. Rena SPICER
--- NOTE | 2024-07-14 14:42 | CASEMGMT ---
SW did not complete a PHQ 9 with patient as she did not have a Stroke or TIA. Rena Huber SHUTTLE PREPARATION SUPERVISOR DANNIELLE
[2024-07-14 14:50] VITALS: BP 113/77; PULSE 80; RESP 18; TEMP 36.8; O2SAT 100
--- NOTE | 2024-07-14 15:10 | PN.HOSP_ITS ---
Reason for Visit Reason for Visit: Diagnoses Paresthesia of skin (07/13/24) Dizziness and giddiness (07/13/24) Objective Data Objective Data Vital Signs: Vital Signs Temp Pulse Resp BP Pulse Ox O2 Del Method 97.9 F 97 18 122/75 H 100 Room Air 07/14/24 08:51 07/14/24 08:51 07/14/24 08:51 07/14/24 08:51 07/14/24 08:51 07/14/24 08:51 Oxygen Delivery Method Room Air Weight: 143 lb 11.862 oz Body Mass Index (BMI) 24.6 Lab / Micro Data 07/13/24 08:05 07/14/24 05:54 Labs: Laboratory Results - last 24 hr 07/13/24 10:55: Urine Opiates Screen NEGATIVE, Urine Methadone Screen NEGATIVE, Ur Barbiturates Screen NEGATIVE, Ur Phencyclidine Scrn NEGATIVE, Ur Amphetamines Screen NEGATIVE, MDMA (Ecstasy) Screen NEGATIVE, U Benzodiazepines Scrn NEGATIVE, Urine Cocaine Screen NEGATIVE, U Cannabinoids Screen NEGATIVE, Ur Drug Screen Comment 07/14/24 05:54: Sodium 138, Potassium 4.2, Chloride 108 H, Carbon Dioxide 26.0, Anion Gap 4 L, BUN 13, Creatinine 0.72, Estim Creat Clear Calc 90.59, Est GFR (MDRD) Af Amer 115, Est GFR (MDRD) Non-Af 95, BUN/Creatinine Ratio 18.0, Glucose 88, Calcium 9.4, Vitamin B12 683, Folate 17.50, TSH 2.130 Micro: Microbiology 07/13/24 10:55 Interface Orders Urine Culture - Final Mixed Gram Positive Organisms Physical Exam Narrative Seen and examined. Patient was in the MRI for long time, not in the bed therefore seen and examined in afternoon. Physical exam General: Alert, Oriented x3, Cooperative HEENT: Atraumatic, PERRLA, EOMI, Normocephalic Oral: Oral mucosa moist. No Gingival or Mucosal Lesions/ Ulcerations Neck: Supple, No JVD, Negative Carotid Bruits Chest wall/Lungs: Air entry equal in bilateral lung bases. No crepitation/rhonchi Cardiovascular: Regular rate, Regular Rhythm, Normal S1, Normal S2, No M/G/R Abdomen: Bowel Sounds Present, Soft, Non Tender, Non-Distended : No dysuria. No renal angle tenderness. No suprapubic tenderness. Extremities: No edema, Capillary Refill Less than 3 Seconds Skin: No rashes, No breakdown Musculoskeletal: No Tenderness to Palpation of Joints or Extremities. ROM full and intact. Neurological: Cranial nerves II-XII grossly intact, DTR 2+/4. Muscle strength 5/5 at major joints. No acute focal neurological deficit. Psych/Mental Status: Anxiety. Assessment & Plan Assessment/Plan (1) Dysequilibrium: (2) Paresthesias: PLAN: Plan This is a 39-year-old female being admitted with nonspecific symptoms of numbness around middle abdomen wraps around trunk localized insomnia stiffness and bilateral hand with sometimes urge incontinence 1. Nonspecific neuromuscular symptoms of numbness, stiffness of hand, twitching of lower extremity and urge incontinence: Patient is being admitted in PCU. Does not need telemetry. MRI brain, C-spine and thoracic spine with and without contrast ordered. [facility] neurology consult after MRIs done and further management as per imaging. Unenhanced CT of the brain was reported normal. IV fluid half- normal saline patient urine looks dark. U tox ordered. Supportive treatment 07/14: Patient was evaluated by the neurologist. MRI brain, C-spine and thoracic spine with and without contrast were done in the morning but not reported. The neurologist asked me to do multiple CSF and serum test with concern for MS. Therefore, I ordered. Serum tests are done but pending. Patient will be going for imaging guided LP tomorrow. Patient does not have much symptoms of involuntary movement. 2. Abnormal UA with recent urge incontinence: UA shows WBC 5-10 cells, squamous cells 10-25 cells indicative of not good UA sample. LE 500. Bacteria 3+. Urine culture is ordered. U tox ordered. 07/14 urine culture shows mixed gram-positive organisms suggestive of contamination 3. DVT prophylaxis: Low risk early ambulation encouraged. No prophylaxis indicated Patient does not have living will or advanced directive. Her mom sitting in the ED is next to kin. Full code but Laboratory Results 07/13/24 08:05: WBC 10.7, RBC 4.69, Hgb 14.4, Hct 43.0, MCV 91.7, MCH 30.7, MCHC 33.5, RDW Std Deviation 39.6, RDW Coeff of Hiram 11.7, Plt Count 437, MPV 9.5, Immature Gran % (Auto) 0.600, Neut % (Auto) 70.2 H, Lymph % (Auto) 18.1 L, Woodruff % (Auto) 9.4, Eos % (Auto) 0.9, Baso % (Auto) 0.8, Absolute Neuts (auto) 7.5, Absolute Lymphs (auto) 1.93, Nucleated RBC % 0, Sodium 140, Potassium 4.0, Chloride 107, Carbon Dioxide 21.0, Anion Gap 12, BUN 13, Creatinine 0.78, Estim Creat Clear Calc 90.53, Est GFR (MDRD) Af Amer 106, Est GFR (MDRD) Non-Af 88, BUN/Creatinine Ratio 16.7, Glucose 79, Calcium 9.5, Magnesium Pending, Total Bilirubin 1.10 H, AST 20, ALT 29, Alkaline Phosphatase 52, Total Protein 7.6, Albumin 4.0, Globulin 3.6, Albumin/Globulin Ratio 1.1 07/13/24 10:55: Urine Color Yellow, Urine Clarity Sl. Cloudy, Urine pH 6.0, Ur Specific [place] 1.025, Urine Protein 30 H, Urine Glucose (UA) Normal, Urine Ketones 150 A*, Urine Occult Blood Negative, Urine Nitrite Negative, Urine Bilirubin Negative, Urine Urobilinogen 1 H, Ur Leukocyte Esterase 500 H, Urine RBC 0 SEEN, Urine WBC 5-10 SEEN, Ur Squamous Epith Cells 10-25 SEEN, Amorphous Sediment 1+, Urine Bacteria 3+, Urine Mucus 1+ Clinical Impression(s) from Imaging Studies Brain CT 07/13/24 07:48 IMPRESSION: Normal unenhanced CT scan of the brain. Charges/Coding Visit Charges Inpatient E&M: 88979 Subs Hosp L2
[2024-07-14] MEDS: Pantoprazole Sodium 40 MG Tablet PO (16:08)
[2024-07-14] MEDS: MethylPREDNISolone 1,000 MG in 0.9% Normal Saline (100mL Bag) 100 ML 100 MG IV (16:08)
[2024-07-14] MEDS: 0.9% Saline Lock 10 ML Syringe IV (16:08)
[2024-07-14 16:47] LABS: Bedside Glucose 127 mg/dL (74-106)
[2024-07-14 17:02] LABS: AST(SGOT) 21 U/L (15-37); Alanine Aminotransfer ALT/SGPT 41 U/L (13-56); Albumin, Serum 3.9 g/dL (3.2-5.0); Alkaline Phosphatase 49 U/L (45-117); Bilirubin, Direct 0.27 mg/dL (0.00-0.30); Globulin 3.5 g/dL (2.2-4.2); Protein, Total 7.4 g/dL (6.4-8.2)
[2024-07-14 17:26] LABS: HIV - WCH Non-Reactive (Nonreactive); Vitamin D,25 Hydroxy 26.2 ng/mL
--- NOTE | 2024-07-14 19:00 | NURSING ---
emergency documentation in effect since 07/14/2024, 1900
[2024-07-14 21:00] VITALS: BP 119/71; PULSE 79; RESP 18; TEMP 36.7; O2SAT 98
[2024-07-14] MEDS: Insulin Lispro 100 UNIT/ML INSULN.PEN SC (21:12)
[2024-07-15] VITALS (7 sets, daily range): BP systolic 100–118; BP diastolic 57–83; PULSE 69–96; RESP 16–20; TEMP 36.3–37.3; O2SAT 96–100
--- NOTE | 2024-07-15 | CYSPIN_PTH ---
PATIENT: NIYAH CARRANZA LOC: [facility] U#:[id number] AGE/SX: 39/F ROOM: [facility] RE07/13/[address]: Dr. Denny Bennett MD : 1985 BED: 1 DIS: 07/17/2024 SPEC #: [id number] RECD: 07/16/24 10:53 STATUS: LIANE REBrown #: [id number] KANDICE: 07/15/24 00:[address]: Jesse Lassiter DEPT: CYTOLOGY RECD BY: Efrain Oconnor ENTERED: 07/16/24 10:54 SP TYPE: CYSPIN FL OTHR DR: MD Dr. Danny Perrin MD Archana Hinduja, MD Dr. Allison Jordan, DO Dr. Alicia Zha, MD Dr. Deepak Gulati, MD Dr. Hera Kamdar, MD Dr. Jan Bittar, MD Dr. James Burke, MD Dr. Jorge Morales, MD Margaret Beigel, MD Dr. Matthew Gusler, MD Dr. Maryam Mian, MD Dr. Mohamed Ridha, MD Dr. Mark Stutzman, DO Dr. Mhd Ezzat Zaghlouleh, MD Dr. Peter Robinson, MD Dr. Rami Ibrahim, MD Dr. Sushil Lakhani, MD Dr. Vivien Lee, MD Yousef Hannawi, MD Tissues: Cerebrospinal Fluid Procedures: Pap Stain (control) Special Stain Group II Cytospin Fluid HEADER OPERATION: Not noted PRE-OP DIAGNOSIS: B/L trunk and leg numbness TISSUE SUBMITTED: Cerebrospinal fluid for cytology DIAGNOSIS CYTOLOGY Cerebrospinal fluid for cytology (cytospins): Negative for malignant cells. 07/16/2024 CYTOLOGY STUDY Slides are reviewed. CYTOLOGY GROSS Received is 2 ml of clear fluid labeled with the patient's name and and designated per the requisition as Cerebrospinal fluid. Submitted for cytology preparation including cell block. Mr 07/16/2024 TC:5 CPT: 85954,13195
[2024-07-15 00:31] LABS: Bedside Glucose 193 mg/dL (74-106)
[2024-07-15] MEDS: Insulin Lispro 100 UNIT/ML INSULN.PEN SC ×2 (06:34→21:23)
[2024-07-15 06:56] LABS: Bedside Glucose 167 mg/dL (74-106)
[2024-07-15 08:48] LABS: International Normalized Ratio 1.1; Partial Thromboplast Time 23.3 Seconds (24.1-36.2); Prothrombin Time (Protime)PT. 14.4 SECONDS (11.7-14.9)
[2024-07-15] MEDS: Pantoprazole Sodium 40 MG Tablet PO (10:18)
[2024-07-15] MEDS: Multivitamins,Ther W-Minerals Tablet 1 TABLET PO (10:18)
--- NOTE | 2024-07-15 13:05 | NEURO.PNOTE ---
Assessment and Plan: Neuro Assessment/Plan NIYAH CARRANZA is a 39 F with a past medical history of CIS, being evaluated by Teleneurology for possible MS flare. Pt on history has had at least 3 distinct clinical episodes, each of these were associated it seems with imaging findings. The first event sounded like a FILEMON and there is a lesion in her brainstem. The second lesion affected her R arm with a corresponding L periventricular lesion with enhancement. This current event sounds like there is involvement of the cord (thoracic and cervical) and there is a new lesion in the Cervical spine with enhancement. Clinically she likely has a thoracic lesion but none seen on imaging (although this may be an effect of the imaging). In addition there is a new periventricular lesion in the R temporal horn with no enhancement. Taken together, pt meets clinical criteria for MS. With the edema in the cervical cord however, would consider evaluating for MS mimics as well including MOGAD and NMO. Plan: - continue IV methylprednisolone 1000mg IVMP for 5 days. If pt glucose and BP stable for 3 days the last 2 days can be an oral regiment completed outpatient - Please monitor BP and glucose on IVMP and start GI PPI. - pending LP with following labs: cell count, protein, glucose, cytology, flow cytometry, oligoclonal bands, myelin basic protein, DIONNE virus (may be send out), VDRL - please obtain the following serum labs: anti MOG (may be sendout), anti NMO (may be sendout), lyme antibody, IL2, IgG infex, HTLV1 - Vitamin D, NARESH, HIV, Vitamin B12, LFTs, TSH resulted - recommend replacing Vit D with goal > 40 ng/mL For followup, recommend Neurology followup with MS specialist in 1-3 months. Pt has request followup in [place]. Recommend getting assistance from Case Management to see if patient can have an appointment set up prior to leaving. Patient can followup with [facility] - will place a referral in our system for followup within the next month in case patient is unable to find a provider in [place]. Will continue to follow patient daily and closely. I personally attended this patient and spent a total time of 45 minutes evaluating this patient including clinical assessment, review of chart, medical history imaging, and determining appropriate treatment and workup. Subject: Neurology Subjective NIYAH CARRANZA is a 39 year old F, who we are seeing in consultation today for advice on the management of MS and related patient care. Overnight pt received her first dose steroids, pt has some elevated BG requiring some insulin. Otherwise pt without GI upset, tolerating well. Pt symptoms continue to improve and her abdominal band discomfort is significantly improved and the stiffness in the R arm is improved as well. Getting LP later today Objective Data Objective Data Vital Signs: Vital Signs Temp Pulse Resp BP Pulse Ox O2 Del Method 97.9 F 79 20 H 105/83 H 100 Room Air 07/15/24 08:25 07/15/24 08:25 07/15/24 08:25 07/15/24 08:25 07/15/24 08:25 07/15/24 08:25 Oxygen Delivery Method Room Air Weight: 65.2 kg Body Mass Index (BMI) 24.6 Intake & Output: Intake and Output for Last 24 Hours 07/13/24 07/14/24 07/15/24 23:59 23:59 23:59 Intake Total 116 / 116 120 / 120 Balance 116 / 116 120 / 120 Lab / Micro Data 07/13/24 08:05 07/14/24 05:54 Labs: Laboratory Results - last 24 hr 07/14/24 15:36: Total Bilirubin 0.90, Direct Bilirubin 0.27, AST 21, ALT 41, Alkaline Phosphatase 49, Total Protein 7.4, Albumin 3.9, Globulin 3.5, Vitamin D 25-Hydroxy 26.2, CSF Lyme IgM Antibody Cancelled, Lyme Disease IgG Ab Cancelled, Lyme IgG 18 kDa Band Cancelled, Lyme IgG 23 kDa Band Cancelled, Lyme IgG 28 kDa Band Cancelled, Lyme IgG 30 kDa Band Cancelled, Lyme IgG 39 kDa Band Cancelled, Lyme IgG 41 kDa Band Cancelled, Lyme IgG 45 kDa Band Cancelled, Lyme IgG 58 kDa Band Cancelled, Lyme IgG 66 kDa Band Cancelled, Lyme IgG 93 kDa Band Cancelled, Lyme IgG W Blot Interp Cancelled, Lyme IgM Ab (WB) Cancelled, Lyme IgM 23 kDa Band Cancelled, Lyme IgM 39 kDa Band Cancelled, Lyme IgM 41 kDa Band Cancelled, Lyme Total Antibody Cancelled, Lyme Disease Ab Note Cancelled, HIV 1&2 Antibody Non-Reactive 07/14/24 16:19: POC Glucose 127 H 07/14/24 21:06: POC Glucose 193 H 07/15/24 06:32: POC Glucose 167 H 07/15/24 08:10: PT 14.4, INR 1.1, APTT 23.3 L Micro: Microbiology 07/13/24 10:55 Interface Orders Urine Culture - Final Mixed Gram Positive Organisms Radiography Diagnostic Testing: Radiology Impression Thoracic Spine MRI 07/13/24 13:00 IMPRESSION: 2 mm right paracentral focal disc protrusion at T7-8 with encroachment on the thecal sac. Electronically Signed: Vladimir Macias MD at 20:42 EDT , Brain MRI 07/13/24 14:09 IMPRESSION: No acute infarction identified. Findings of demyelinating disease again demonstrated; the left temporal deep white matter lesion has decreased in size, and there is a stable lesion adjacent to the trigone of the right lateral ventricle. There is a new T2 hyperintense lesion adjacent to the left occipital horn, radiating superiorly adjacent to the trigone of the left lateral ventricle, and there is a new T2 hyperintense lesion within the right temporal lobe. None of these lesions demonstrate abnormal enhancement. Electronically Signed: Polo Mcdonough MD at 6:08 EDT , Cervical Spine MRI 07/13/24 14:09 IMPRESSION: Demyelinating lesion in the cervical cord with edema from C2 through C5 with some expansion of the cord. Within this there is a focal area of enhancement in the right periphery of the cord over a length of 1.6 cm from C3 through C4. Probable acute multiple sclerosis plaque given the patient''s history. There is a 2nd smaller lesion at the C2 level that does not demonstrate enhancement. Transverse myelitis can have a similar appearance but the lesion is typically more central. Electronically Signed: Geovany Wilson MD at 3:55 EDT , Physical Exam Narrative -? General: Laying comfortably in bed; in no acute distress. -? HENT: Normal oropharynx and mucosa. Normal external appearance of ears and nose. Exophthalmos. -? Neck: Supple, no pain or tenderness -? CV:? No peripheral edema. -? Pulmonary:? Normal respiratory effort. -? Ext: No cyanosis, edema, or deformity -? Skin: No rash. Normal palpation of skin.? -? Musculoskeletal: full range of motion; no joint tenderness. Normal digits and nails by inspection. No clubbing. -? NEURO: -? Mental Status: The patient was alert and oriented to time, place, and person. Normal recent/remote memory, concentration, and general fund of knowledge. -? Language: speech is clear.? Naming, repetition, fluency, and comprehension intact. -? Cranial Nerves: PERRL 3 mm/brisk. EOMI, visual grey full, no facial asymmetry, facial sensation intact, hearing intact, tongue midline, no evidence of atrophy or fibrillations. -? Motor: drift and pronation of the RUE, drift RLE R L SA 5 5 EE 5 5 EF 5 5 WE WF Clinical Research Specialist 5- 5 HF 4 5 KE 5 5 KF 5 5 DF 5- 5 PF -? -? Tone: is normal and bulk is normal -? Sensation- Intact to light touch bilaterally -? Coordination: No dysmetria on [id number], finger follow finger or [id number]. -? Gait-
[2024-07-15] MEDS: Lidocaine 2% (5ml sdv) 5 ML VIAL.MPF INFILT (13:46)
[2024-07-15 14:27] LABS: Cytology, Body Fluid / CSF SEE PATHOLOGY REPORT
[2024-07-15 15:01] LABS: Body Fluid QC Type(s) BF1Q
[2024-07-15 15:06] LABS: Glucose Spinal Fluid 101 mg/dL (40-75)
--- NOTE | 2024-07-15 15:19 | PCM.OP.PRO ---
Procedure Report Date of Procedure: 07/15/24 Assessment & Plan Assessment/Plan (1) Paresthesias: PLAN: PROCEDURE: Fluoroscopic guided Lumbar Puncture. ORDERING PROVIDER: Dr. Lassiter CLINICAL INDICATION: Female, 39 years old. Paresthesias with abnormal MRI. PROVIDER: CHIQUITA Chirinos MEDICATIONS: 2% lidocaine administered subcutaneously for local anesthesia ACCESS SITE: Lower posterior back. NEEDLE: 22-gauge spinal needle. SPECIMEN: Approximately 13 mL clear colored CSF fluid. COMPLICATIONS: None immediate. FLUOROSCOPY TIME (if supplied): 2 minutes/42 seconds. 21.5 mGy The risks, benefits, and alternatives to the procedure were explained to the patient. The specific risks of bleeding, infection, and neurovascular injury were detailed and accepted. Witnessed informed consent was obtained. The patient was placed on the fluoroscopic table in the prone position. The level for needle entry was determined and marked. The overlying skin was cleaned with betadine and draped in the usual sterile fashion. 2% lidocaine was administered subcutaneously for local anesthesia. Under fluoroscopic guidance a 22-gauge spinal needle was advanced. The thecal sac was entered at the L 3-L 4 vertebral level. The inner stylet was removed. There was spontaneous flow of clear-colored CSF fluid. The patient was placed in a reverse Trendelenburg position. Approximately 13 mL of cerebrospinal fluid was collected using gravity. The specimen was collected and submitted to the laboratory for further evaluation. The needle was withdrawn. Hemostasis was achieved and a sterile dressing placed. The patient tolerated the procedure well without any immediate complications. The patient was placed supine for nursing observation in the holding bay. IMPRESSION: Successful fluoroscopic-guided lumbar puncture. Procedures Radiology Radiology Xray Procedures: [id number] Lumbar Puncture Dx Multi Select Codes Radiology Rad Xray Procedures: [id number] Fluoroscopic guidance for needle placement
[2024-07-15] MEDS: MethylPREDNISolone 1,000 MG in 0.9% Normal Saline (100mL Bag) 100 ML 100 MG IV (15:23)
[2024-07-15 15:28] LABS: Appearance CSF (character) CLEAR (Clear); CSF Color COLORLESS (Colorless); RBC Count, Spinal Fluid 11 /mm-3 (None seen); Tested Tube # 4; White Count, CSF 1 /mm-3 (0 - 5)
[2024-07-15 15:48] LABS: Lymphocytes,CSF 100 % (40 - 80)
--- NOTE | 2024-07-15 16:29 | PN.HOSP_ITS ---
Reason for Visit Reason for Visit: Diagnoses Paresthesia of skin (07/13/24) Dizziness and giddiness (07/13/24) Objective Data Objective Data Vital Signs: Vital Signs Temp Pulse Resp BP Pulse Ox O2 Del Method 97.3 F L 69 18 110/57 L 100 Room Air 07/15/24 15:20 07/15/24 15:20 07/15/24 15:20 07/15/24 15:20 07/15/24 15:20 07/15/24 15:20 Oxygen Delivery Method Room Air Weight: 143 lb 11.862 oz Body Mass Index (BMI) 24.6 Intake & Output: Intake and Output for Last 24 Hours 07/13/24 07/14/24 07/15/24 23:59 23:59 23:59 Intake Total 116 / 116 120 / 120 Balance 116 / 116 120 / 120 Lab / Micro Data 07/13/24 08:05 07/14/24 05:54 Labs: Laboratory Results - last 24 hr 07/14/24 15:36: Total Bilirubin 0.90, Direct Bilirubin 0.27, AST 21, ALT 41, Alkaline Phosphatase 49, Total Protein 7.4, Albumin 3.9, Globulin 3.5, Vitamin D 25-Hydroxy 26.2, CSF Lyme IgM Antibody Cancelled, Lyme Disease IgG Ab Cancelled, Lyme IgG 18 kDa Band Cancelled, Lyme IgG 23 kDa Band Cancelled, Lyme IgG 28 kDa Band Cancelled, Lyme IgG 30 kDa Band Cancelled, Lyme IgG 39 kDa Band Cancelled, Lyme IgG 41 kDa Band Cancelled, Lyme IgG 45 kDa Band Cancelled, Lyme IgG 58 kDa Band Cancelled, Lyme IgG 66 kDa Band Cancelled, Lyme IgG 93 kDa Band Cancelled, Lyme IgG W Blot Interp Cancelled, Lyme IgM Ab (WB) Cancelled, Lyme IgM 23 kDa Band Cancelled, Lyme IgM 39 kDa Band Cancelled, Lyme IgM 41 kDa Band Cancelled, Lyme Total Antibody Cancelled, Lyme Disease Ab Note Cancelled, HIV 1&2 Antibody Non-Reactive 07/14/24 16:19: POC Glucose 127 H 07/14/24 21:06: POC Glucose 193 H 07/15/24 06:32: POC Glucose 167 H 07/15/24 08:10: PT 14.4, INR 1.1, APTT 23.3 L 07/15/24 14:01: CSF Appearance CLEAR, CSF Color COLORLESS, CSF WBC 1, CSF RBC 11 H, CSF Cell Count Tube # 4, CSF Total Cell Counted TNP, CSF Lymphocytes 100 H, CSF Comment May follow, CSF Glucose 101 H, CSF Total Protein 31.0 Micro: Microbiology 07/15/24 14:01 Csf, Spinal Fluid Gram Stain - Final 07/13/24 10:55 Interface Orders Urine Culture - Final Mixed Gram Positive Organisms Radiography Diagnostic Testing: Radiology Impression Thoracic Spine MRI 07/13/24 13:00 IMPRESSION: 2 mm right paracentral focal disc protrusion at T7-8 with encroachment on the thecal sac. Electronically Signed: Vladimir Macias MD at 20:42 EDT , Brain MRI 07/13/24 14:09 IMPRESSION: No acute infarction identified. Findings of demyelinating disease again demonstrated; the left temporal deep white matter lesion has decreased in size, and there is a stable lesion adjacent to the trigone of the right lateral ventricle. There is a new T2 hyperintense lesion adjacent to the left occipital horn, radiating superiorly adjacent to the trigone of the left lateral ventricle, and there is a new T2 hyperintense lesion within the right temporal lobe. None of these lesions demonstrate abnormal enhancement. Electronically Signed: Polo Mcdonough MD at 6:08 EDT , Cervical Spine MRI 07/13/24 14:09 IMPRESSION: Demyelinating lesion in the cervical cord with edema from C2 through C5 with some expansion of the cord. Within this there is a focal area of enhancement in the right periphery of the cord over a length of 1.6 cm from C3 through C4. Probable acute multiple sclerosis plaque given the patient''s history. There is a 2nd smaller lesion at the C2 level that does not demonstrate enhancement. Transverse myelitis can have a similar appearance but the lesion is typically more central. Electronically Signed: Geovany Wilson MD at 3:55 EDT , Physical Exam Narrative Seen and examined. Patient was in the MRI for long time, not in the bed therefore seen and examined in afternoon. Physical exam General: Alert, Oriented x3, Cooperative HEENT: Atraumatic, PERRLA, EOMI, Normocephalic Oral: Oral mucosa moist. No Gingival or Mucosal Lesions/ Ulcerations Neck: Supple, No JVD, Negative Carotid Bruits Chest wall/Lungs: Air entry equal in bilateral lung bases. No crepitation/rhonchi Cardiovascular: Regular rate, Regular Rhythm, Normal S1, Normal S2, No M/G/R Abdomen: Bowel Sounds Present, Soft, Non Tender, Non-Distended : No dysuria. No renal angle tenderness. No suprapubic tenderness. Extremities: No edema, Capillary Refill Less than 3 Seconds Skin: No rashes, No breakdown Musculoskeletal: No Tenderness to Palpation of Joints or Extremities. ROM full and intact. Neurological: Cranial nerves II-XII grossly intact, DTR 2+/4. Muscle strength 5/5 at major joints. No acute focal neurological deficit. Psych/Mental Status: Anxiety. Assessment & Plan Assessment/Plan (1) Dysequilibrium: (2) Paresthesias: PLAN: Plan This is a 39-year-old female being admitted with nonspecific symptoms of numbness around middle abdomen wraps around trunk localized insomnia stiffness and bilateral hand with sometimes urge incontinence 1. Nonspecific neuromuscular symptoms of numbness, stiffness of hand, twitching of lower extremity and urge incontinence: Patient is being admitted in PCU. Does not need telemetry. MRI brain, C-spine and thoracic spine with and without contrast ordered. [facility] neurology consult after MRIs done and further management as per imaging. Unenhanced CT of the brain was reported normal. IV fluid half- normal saline patient urine looks dark. U tox ordered. Supportive treatment 07/14: Patient was evaluated by the neurologist. MRI brain, C-spine and thoracic spine with and without contrast were done in the morning but not reported. The neurologist asked me to do multiple CSF and serum test with concern for MS. Therefore, I ordered. Serum tests are done but pending. Patient will be going for imaging guided LP tomorrow. Patient does not have much symptoms of involuntary movement. 07/15: Patient had LP today. I was informed that patient had 3 mL CSF fluid is insufficient for flow cytometry. Neurology informed. Patient also told me that but neurologist told her to get 3 IV doses of Solu-Medrol inpatient and then she can get 2 doses as outpatient. 2. Abnormal UA with recent urge incontinence: UA shows WBC 5-10 cells, squamous cells 10-25 cells indicative of not good UA sample. LE 500. Bacteria 3+. Urine culture is ordered. U tox ordered. 07/14 urine culture shows mixed gram-positive organisms suggestive of contamination 3. DVT prophylaxis: Low risk early ambulation encouraged. No prophylaxis indicated Patient does not have living will or advanced directive. Her mom sitting in the ED is next to kin. Full code but Microbiology Past 72 Hours 07/15/24 14:01 Csf, Spinal Fluid Gram Stain - Final 07/13/24 10:55 Interface Orders Urine Culture - Final Mixed Gram Positive Organisms Laboratory Results 07/14/24 15:26: Lyme IgG W Blot Interp Pending, Lyme IgM Ab (WB) Pending, Lyme Total Antibody Pending 07/14/24 15:36: Total Bilirubin 0.90, Direct Bilirubin 0.27, AST 21, ALT 41, Alkaline Phosphatase 49, Total Protein 7.4, Albumin 3.9, Globulin 3.5, Vitamin D 25-Hydroxy 26.2, CSF Lyme IgM Antibody Cancelled, Lyme Disease IgG Ab Cancelled, Lyme IgG 18 kDa Band Cancelled, Lyme IgG 23 kDa Band Cancelled, Lyme IgG 28 kDa Band Cancelled, Lyme IgG 30 kDa Band Cancelled, Lyme IgG 39 kDa Band Cancelled, Lyme IgG 41 kDa Band Cancelled, Lyme IgG 45 kDa Band Cancelled, Lyme IgG 58 kDa Band Cancelled, Lyme IgG 66 kDa Band Cancelled, Lyme IgG 93 kDa Band Cancelled, Lyme IgG W Blot Interp Cancelled, Lyme IgM Ab (WB) Cancelled, Lyme IgM 23 kDa Band Cancelled, Lyme IgM 39 kDa Band Cancelled, Lyme IgM 41 kDa Band Cancelled, Lyme Total Antibody Cancelled, Lyme Disease Ab Note Cancelled, HIV 1&2 Antibody Non-Reactive, Miscellaneous Test Pending 07/14/24 15:36: Miscellaneous Test Pending 07/14/24 16:19: POC Glucose 127 H 07/14/24 21:06: POC Glucose 193 H 07/15/24 05:31: Albumin Pending, CSF Albumin Pending, CSF IgG Pending, Serum IgG Pending, CSF IgG/Albumin Pending, CSF Albumin Index Pending, CSF IgG Index Pending, CSF IgG Local Synthesis Pending, CSF Myelin Basic Protein Pending, CSF/Ser Oligoclon Bands Pending, Oligoclonal Band Interp Pending, Culture Method Pending, Miscellaneous Test Pending 07/15/24 06:32: POC Glucose 167 H 07/15/24 08:10: PT 14.4, INR 1.1, APTT 23.3 L 07/15/24 14:01: CSF Appearance CLEAR, CSF Color COLORLESS, CSF WBC 1, CSF RBC 11 H, CSF Cell Count Tube # 4, CSF Total Cell Counted TNP, CSF Lymphocytes 100 H, CSF Comment May follow, CSF Glucose 101 H, CSF Total Protein 31.0, Miscellaneous Cytology Pending 07/15/24 15:36: Miscellaneous Test Pending Clinical Impression(s) from Imaging Studies Brain CT 07/13/24 07:48 IMPRESSION: Normal unenhanced CT scan of the brain. Charges/Coding Visit Charges Inpatient E&M: 07394 Subs Hosp L2
[2024-07-15 16:39] LABS: Bedside Glucose 115 mg/dL (74-106)
[2024-07-15 17:54] LABS: Bedside Glucose 143 mg/dL (74-106)
[2024-07-15 23:52] LABS: Bedside Glucose 217 mg/dL (74-106)
[2024-07-16 03:44] VITALS: BP 101/74; PULSE 78; RESP 18; TEMP 36.9; O2SAT 98
[2024-07-16] MEDS: Insulin Lispro 100 UNIT/ML INSULN.PEN SC ×2 (06:33→21:29)
[2024-07-16 06:53] LABS: Bedside Glucose 150 mg/dL (74-106)
[2024-07-16] MEDS: Multivitamins,Ther W-Minerals Tablet 1 TABLET PO (09:38)
[2024-07-16] MEDS: Pantoprazole Sodium 40 MG Tablet PO (09:38)
[2024-07-16 09:44] VITALS: BP 111/75; PULSE 83; RESP 16; TEMP 36.5; O2SAT 100
--- NOTE | 2024-07-16 12:17 | PN.NEURO_ITS ---
Assessment and Plan: Neuro Assessment/Plan Assessment/Plan NIYAH CARRANZA is a 39 F with a past medical history of CIS, being evaluated by Teleneurology for possible MS flare. Pt on history has had at least 3 distinct clinical episodes, each of these were associated it seems with imaging findings. The first event sounded like a FILEMON and there is a lesion in her brainstem. The second lesion affected her R arm with a corresponding L periventricular lesion with enhancement. This current event sounds like there is involvement of the cord (thoracic and cervical) and there is a new lesion in the Cervical spine with enhancement. Clinically she likely has a thoracic lesion but none seen on imaging (although this may be an effect of the imaging). In addition there is a new periventricular lesion in the R temporal horn with no enhancement. Taken together, pt meets clinical criteria for MS. With the edema in the cervical cord however, would consider evaluating for MS mimics as well including MOGAD and NMO. Plan: - continue IV methylprednisolone 1000mg IVMP for 5 days (today day 3/5). If pt glucose and BP stable for 3 days the last 2 days can be an oral regiment completed outpatient - oral regiment will be 1250mg prednisone. that can be dispensed at twenty-five 50mg pills - Please monitor BP and glucose on IVMP and start GI PPI. - pending LP with following labs: cell count, protein, glucose, cytology, flow cytometry, oligoclonal bands, myelin basic protein, DIONNE virus (may be send out), VDRL - please obtain the following serum labs: anti MOG (may be sendout), anti NMO (may be sendout), lyme antibody, IL2, IgG infex, HTLV1 - Vitamin D, NARESH, HIV, Vitamin B12, LFTs, TSH resulted - recommend replacing Vit D with goal > 40 ng/mL For followup, recommend Neurology followup with MS specialist in 1-3 months. Pt has request followup in [place]. Recommend getting assistance from Case Management to see if patient can have an appointment set up prior to leaving. Patient can followup with [facility] - will place a referral in our system for followup within the next month in case patient is unable to find a provider in [place]. Will continue to follow patient daily and closely. I personally attended this patient and spent a total time of 45 minutes evaluating this patient including clinical assessment, review of chart, medical history imaging, and determining appropriate treatment and workup. Subject: Neurology Subjective Pt continues to improve, still with some elevated BG. EEG Results Procedure Details EEG Procedure Details: NIYAH CARRANZA is a 39 year old F with a past medical history of , who presents for evaluation of Electroencephalogram on DATE at TIME Objective Data Objective Data Vital Signs: Vital Signs Temp Pulse Resp BP Pulse Ox O2 Del Method 97.7 F L 83 16 111/75 100 Room Air 07/16/24 09:44 07/16/24 09:44 07/16/24 09:44 07/16/24 09:44 07/16/24 09:44 07/16/24 09:44 Oxygen Delivery Method Room Air Weight: 65.2 kg Body Mass Index (BMI) 24.6 Intake & Output: Intake and Output for Last 24 Hours 07/14/24 07/15/24 07/16/24 23:59 23:59 23:59 Intake Total 116 / 116 236 / 236 Balance 116 / 116 236 / 236 Lab / Micro Data 07/13/24 08:05 07/14/24 05:54 Labs: Laboratory Results - last 24 hr 07/15/24 05:55: Miscellaneous Test Cancelled 07/15/24 11:50: POC Glucose 143 H 07/15/24 14:01: CSF Appearance CLEAR, CSF Color COLORLESS, CSF WBC 1, CSF RBC 11 H, CSF Cell Count Tube # 4, CSF Total Cell Counted TNP, CSF Lymphocytes 100 H, CSF Comment May follow, CSF Glucose 101 H, CSF Total Protein 31.0 07/15/24 16:16: POC Glucose 115 H 07/15/24 21:21: POC Glucose 217 H 07/16/24 06:31: POC Glucose 150 H Micro: Microbiology 07/15/24 14:01 Csf, Spinal Fluid Gram Stain - Final 07/13/24 10:55 Interface Orders Urine Culture - Final Mixed Gram Positive Organisms Radiography Diagnostic Testing: Radiology Impression Thoracic Spine MRI 07/13/24 13:00 IMPRESSION: 2 mm right paracentral focal disc protrusion at T7-8 with encroachment on the thecal sac. Electronically Signed: Vladimir Macias MD at 20:42 EDT , Brain MRI 07/13/24 14:09 IMPRESSION: No acute infarction identified. Findings of demyelinating disease again demonstrated; the left temporal deep white matter lesion has decreased in size, and there is a stable lesion adjacent to the trigone of the right lateral ventricle. There is a new T2 hyperintense lesion adjacent to the left occipital horn, radiating superiorly adjacent to the trigone of the left lateral ventricle, and there is a new T2 hyperintense lesion within the right temporal lobe. None of these lesions demonstrate abnormal enhancement. Electronically Signed: Polo Mcdonough MD at 6:08 EDT , Cervical Spine MRI 07/13/24 14:09 IMPRESSION: Demyelinating lesion in the cervical cord with edema from C2 through C5 with some expansion of the cord. Within this there is a focal area of enhancement in the right periphery of the cord over a length of 1.6 cm from C3 through C4. Probable acute multiple sclerosis plaque given the patient''s history. There is a 2nd smaller lesion at the C2 level that does not demonstrate enhancement. Transverse myelitis can have a similar appearance but the lesion is typically more central. Electronically Signed: Geovany Wilson MD at 3:55 EDT , Physical Exam Narrative -? General: Laying comfortably in bed; in no acute distress. -? HENT: Normal oropharynx and mucosa. Normal external appearance of ears and nose. Exophthalmos. -? Neck: Supple, no pain or tenderness -? CV:? No peripheral edema. -? Pulmonary:? Normal respiratory effort. -? Ext: No cyanosis, edema, or deformity -? Skin: No rash. Normal palpation of skin.? -? Musculoskeletal: full range of motion; no joint tenderness. Normal digits and nails by inspection. No clubbing. -? NEURO: -? Mental Status: The patient was alert and oriented to time, place, and person. Normal recent/remote memory, concentration, and general fund of knowledge. -? Language: speech is clear.? Naming, repetition, fluency, and comprehension intact. -? Cranial Nerves: PERRL 3 mm/brisk. EOMI, visual grey full, no facial asymmetry, facial sensation intact, hearing intact, tongue midline, no evidence of atrophy or fibrillations. -? Motor: no pronation or drift on the RLE, no drift in RLE l R L SA 4 5 EE 4 5 EF 5 5 WE WF Recreation Facility Manager 5- 5 HF 4 5 KE 5 5 KF 5 5 DF 5- 5 PF -? Coordination: No dysmetria on [id number], finger follow finger or [id number]. -? Gait-
[2024-07-16 12:30] LABS: Bedside Glucose 133 mg/dL (74-106)
[2024-07-16 14:10] LABS: ANTINUCLEAR ANTIBODIES DIRECT Negative (Negative)
[2024-07-16 14:13] LABS: Pathologist Review May follow
--- NOTE | 2024-07-16 14:15 | PCM.PN.HOSP ---
Reason for Visit Reason for Visit: Diagnoses Paresthesia of skin (07/13/24) Dizziness and giddiness (07/13/24) Objective Data Objective Data Vital Signs: Vital Signs Temp Pulse Resp BP Pulse Ox O2 Del Method 97.7 F L 83 16 111/75 100 Room Air 07/16/24 09:44 07/16/24 09:44 07/16/24 09:44 07/16/24 09:44 07/16/24 09:44 07/16/24 09:44 Oxygen Delivery Method Room Air Weight: 143 lb 11.862 oz Body Mass Index (BMI) 24.6 Intake & Output: Intake and Output for Last 24 Hours 07/14/24 07/15/24 07/16/24 23:59 23:59 23:59 Intake Total 116 / 116 236 / 236 Balance 116 / 116 236 / 236 Lab / Micro Data 07/13/24 08:05 07/14/24 05:54 Labs: Laboratory Results - last 24 hr 07/14/24 15:36: NARESH Screen Negative 07/15/24 05:55: Miscellaneous Test Cancelled 07/15/24 11:50: POC Glucose 143 H 07/15/24 14:01: CSF Appearance CLEAR, CSF Color COLORLESS, CSF WBC 1, CSF RBC 11 H, CSF Cell Count Tube # 4, CSF Total Cell Counted TNP, CSF Lymphocytes 100 H, CSF Comment May follow, CSF Glucose 101 H, CSF Total Protein 31.0, Miscellaneous Cytology SEE PATHOLOGY REPORT 07/15/24 16:16: POC Glucose 115 H 07/15/24 21:21: POC Glucose 217 H 07/16/24 06:31: POC Glucose 150 H 07/16/24 12:10: POC Glucose 133 H Micro: Microbiology 07/15/24 14:01 Csf, Spinal Fluid Gram Stain - Final 07/13/24 10:55 Interface Orders Urine Culture - Final Mixed Gram Positive Organisms Physical Exam Narrative Seen and examined. No acute issues. Vitamin D 25 hydroxy low. Patient is tolerating IV Solu-Medrol with mild hyperglycemia but not very high complain of mild soreness over lumbar puncture site but no leaking. No headache Physical exam General: Alert, Oriented x3, Cooperative HEENT: Atraumatic, PERRLA, EOMI, Normocephalic Oral: Oral mucosa moist. No Gingival or Mucosal Lesions/ Ulcerations Neck: Supple, No JVD, Negative Carotid Bruits Chest wall/Lungs: Air entry equal in bilateral lung bases. No crepitation/rhonchi Cardiovascular: Regular rate, Regular Rhythm, Normal S1, Normal S2, No M/G/R Abdomen: Bowel Sounds Present, Soft, Non Tender, Non-Distended : No dysuria. No renal angle tenderness. No suprapubic tenderness. Extremities: No edema, Capillary Refill Less than 3 Seconds Skin: No rashes, No breakdown Musculoskeletal: No Tenderness to Palpation of Joints or Extremities. ROM full and intact. Neurological: Cranial nerves II-XII grossly intact, DTR 2+/4. Muscle strength 5/5 at major joints. No acute focal neurological deficit. Psych/Mental Status: Anxiety. Assessment & Plan Assessment/Plan (1) Dysequilibrium: (2) Paresthesias: PLAN: Plan This is a 39-year-old female being admitted with nonspecific symptoms of numbness around middle abdomen wraps around trunk localized insomnia stiffness and bilateral hand with sometimes urge incontinence 1. Nonspecific neuromuscular symptoms of numbness, stiffness of hand, twitching of lower extremity and urge incontinence: Patient is being admitted in PCU. Does not need telemetry. MRI brain, C-spine and thoracic spine with and without contrast ordered. [facility] consult after MRIs done and further management as per imaging. Unenhanced CT of the brain was reported normal. IV fluid half-normal saline patient urine looks dark. U tox ordered. Supportive treatment 07/14: Patient was evaluated by the neurologist. MRI brain, C-spine and thoracic spine with and without contrast were done in the morning but not reported. The neurologist asked me to do multiple CSF and serum test with concern for MS. Therefore, I ordered. Serum tests are done but pending. Patient will be going for imaging guided LP tomorrow. Patient does not have much symptoms of involuntary movement. 07/15: Patient had LP today. I was informed that patient had 3 mL CSF fluid is insufficient for flow cytometry. Neurology informed. Patient also told me that but neurologist told her to get 3 IV doses of Solu-Medrol inpatient and then she can get 2 doses as outpatient. 07/16: No leaking of CSF at the lumbar puncture site. No major tenderness. Patient is walking around the house with discussed with the neurologist Dr. Queen and she said she can have IV Solu-Medrol, for fourth dose 1 g early around noon time and then she can be discharged on last and only one. her 5th dose of oral 1250 mg of prednisone, 25 tablets of 50 mg prednisone, 1 dose on 07/18/2024 and pantoprazole 40 mg daily for 1 month. She can follow-up pending CSF and serum labs pertaining to MS with the outpatient neurologist, MS specialist in 1 to 3 months. Patient has requested follow-up with endocrine. If she wants she can follow-up with [facility] if unable to find MS specialist in [place]. 2. Abnormal UA with recent urge incontinence: UA shows WBC 5-10 cells, squamous cells 10-25 cells indicative of not good UA sample. LE 500. Bacteria 3+. Urine culture is ordered. U tox ordered. 07/14 urine culture shows mixed gram-positive organisms suggestive of contamination 3. DVT prophylaxis: Low risk early ambulation encouraged. No prophylaxis indicated Patient does not have living will or advanced directive. Her mom sitting in the ED is next to kin. Full code Microbiology Past 72 Hours 07/15/24 14:01 Csf, Spinal Fluid Gram Stain - Final 07/13/24 10:55 Interface Orders Urine Culture - Final Mixed Gram Positive Organisms Laboratory Results 07/14/24 15:26: Lyme IgG W Blot Interp Pending, Lyme IgM Ab (WB) Pending, Lyme Total Antibody Pending 07/14/24 15:36: Total Bilirubin 0.90, Direct Bilirubin 0.27, AST 21, ALT 41, Alkaline Phosphatase 49, Total Protein 7.4, Albumin 3.9, Globulin 3.5, Vitamin D 25-Hydroxy 26.2, CSF Lyme IgM Antibody Cancelled, Lyme Disease IgG Ab Cancelled, Lyme IgG 18 kDa Band Cancelled, Lyme IgG 23 kDa Band Cancelled, Lyme IgG 28 kDa Band Cancelled, Lyme IgG 30 kDa Band Cancelled, Lyme IgG 39 kDa Band Cancelled, Lyme IgG 41 kDa Band Cancelled, Lyme IgG 45 kDa Band Cancelled, Lyme IgG 58 kDa Band Cancelled, Lyme IgG 66 kDa Band Cancelled, Lyme IgG 93 kDa Band Cancelled, Lyme IgG W Blot Interp Cancelled, Lyme IgM Ab (WB) Cancelled, Lyme IgM 23 kDa Band Cancelled, Lyme IgM 39 kDa Band Cancelled, Lyme IgM 41 kDa Band Cancelled, Lyme Total Antibody Cancelled, Lyme Disease Ab Note Cancelled, HIV 1&2 Antibody Non-Reactive, Miscellaneous Test Pending 07/14/24 15:36: Miscellaneous Test Pending 07/14/24 16:19: POC Glucose 127 H 07/14/24 21:06: POC Glucose 193 H 07/15/24 05:31: Albumin Pending, CSF Albumin Pending, CSF IgG Pending, Serum IgG Pending, CSF IgG/Albumin Pending, CSF Albumin Index Pending, CSF IgG Index Pending, CSF IgG Local Synthesis Pending, CSF Myelin Basic Protein Pending, CSF/Ser Oligoclon Bands Pending, Oligoclonal Band Interp Pending, Culture Method Pending, Miscellaneous Test Pending 07/15/24 06:32: POC Glucose 167 H 07/15/24 08:10: PT 14.4, INR 1.1, APTT 23.3 L 07/15/24 14:01: CSF Appearance CLEAR, CSF Color COLORLESS, CSF WBC 1, CSF RBC 11 H, CSF Cell Count Tube # 4, CSF Total Cell Counted TNP, CSF Lymphocytes 100 H, CSF Comment May follow, CSF Glucose 101 H, CSF Total Protein 31.0, Miscellaneous Cytology Pending 07/15/24 15:36: Miscellaneous Test Pending Clinical Impression(s) from Imaging Studies Brain CT 07/13/24 07:48 IMPRESSION: Normal unenhanced CT scan of the brain. Charges/Coding Visit Charges Inpatient E&M: 16148 Subs Hosp L2
[2024-07-16] MEDS: MethylPREDNISolone 1,000 MG in 0.9% Normal Saline (100mL Bag) 100 ML 100 MG IV (14:39)
[2024-07-16 14:48] VITALS: BP 100/68; PULSE 68; RESP 15; TEMP 36.5; O2SAT 100
[2024-07-16] MEDS: Ergocalciferol 1.25 MG (50, 000 UNIT) Capsule PO (16:21)
[2024-07-16 21:33] VITALS: BP 107/66; PULSE 64; RESP 14; TEMP 36.5; O2SAT 100
[2024-07-16 22:00] LABS: Bedside Glucose 193 mg/dL (74-106)
[2024-07-17 04:00] VITALS: BP 96/59; PULSE 85; RESP 14; TEMP 36.8; O2SAT 98
[2024-07-17 06:59] LABS: Bedside Glucose 147 mg/dL (74-106)
[2024-07-17] MEDS: Multivitamins,Ther W-Minerals Tablet 1 TABLET PO (08:53)
[2024-07-17] MEDS: Pantoprazole Sodium 40 MG Tablet PO (08:53)
[2024-07-17 08:55] VITALS: BP 126/68; PULSE 90; RESP 16; TEMP 36.7; O2SAT 100
--- NOTE | 2024-07-17 10:30 | DCINST_ITS ---
Discharge Instructions Diet Discharge Diet: No restrictions Activity Discharge Activity: Return to Normal Activity Dressing / Incision Call your doctor if you observe: Fever of 101 or Higher, Shortness of breath, Dizziness, Fainting spells, Swelling in the ankles, Chest pain and Increased palpitations (irregular heartbeat) Follow Up Care Test Results: Test results from this visit will be discussed in further detail at your follow- up appointment, if applicable. Discharge Plan Admission Admit Date/Time: 07/13/24 12:57 Attending Provider: Denny Bennett Primary Care Provider: Filippo Huang Consulting Providers: Clifton Montgomery; Danny Arredondo; Socorro Singh; Gregoria Dominguez; Grace Queen; Jonah Monaco; Cleopatra Wells; Hai Aquino; Cuco Monaco; Mario Weldon; Allie Nava; Gordon Patel; Stacey Mustafa; Gino Guillermo; Gertrudis Hawthorne; Brijesh Waters; Jose Jim; Clayton Hudson; Madeline Kee; Christel López; Jesse Lassiter Instructions Patient Instructions: DYLLAN RN Lumbar Puncture Having Discharge Orders/Prescriptions Prescriptions: New pantoprazole 40 mg Tablet,Delayed Release (Dr/Ec) 40 mg PO DAILY 30 Days Qty: 30 0RF prednisone 50 mg tablet 50 mg PO DAILY Qty: 25 0RF Rx Instructions: Take 25 tablets on 07/18/24 ergocalciferol (vitamin D2) [Vitamin D2] 1,250 mcg (50,000 unit) capsule 1,250 mcg PO QWEEK Qty: 7 0RF No Action multivitamin,[id number] [Complete Multivitamin] tablet 1 tab PO QDAY Referrals / Follow Up: Filippo Huang DO [Primary Care Provider] - Within 1 Week Disposition Disposition (needs filled in before D/C Order can be placed): Home, Self Care
[2024-07-17] MEDS: 0.9% Saline Lock 10 ML Syringe IV (10:36)
[2024-07-17] MEDS: MethylPREDNISolone 1,000 MG in 0.9% Normal Saline (100mL Bag) 100 ML 100 MG IV (10:36)
[2024-07-17 12:24] VITALS: BP 100/77; PULSE 67; RESP 16; TEMP 36.6; O2SAT 100
--- NOTE | 2024-07-17 17:10 | PCM.DC.SUM ---
Providers Date of Admission: 07/13/24 Primary Care Physician: Dr. Filippo Huang, DO Consultations 07/13/24 08:26 neuro [Consult: Tele-Neurology] Routine Consulting Provider: [facility] Reason for Consult: dysequilibrium, paresthesias T9 L>R, urinary incontinence EMERGENT Consult: Yes MD Notified: Yes Date Notified: 07/13/24 Time Notified: 08:26 Method of Notification: ED Physician Initiated Nursing Unit Staff Notify [facility] of Tele-Neurology Consult: Yes Reason For Visit: B/L TRUNK AND LE NUMBNESS Diagnosis Discharge Diagnosis (1) Dysequilibrium: Status: Acute Code(s): R42 - Dizziness and giddiness (2) Paresthesias: Status: Acute Code(s): R20.2 - Paresthesia of skin Medications at Discharge Home Medications multivitamin,[id number] (Complete Multivitamin tablet) 1 tab PO QDAY 01/29/18 ergocalciferol (vitamin D2) 1,250 mcg (50,000 unit) capsule (Vitamin D2) 1,250 mcg PO QWEEK #7 caps 07/17/24 pantoprazole 40 mg tablet,delayed release 40 mg PO DAILY 30 days #30 tabs 07/17/24 prednisone 50 mg tablet 50 mg PO DAILY #25 tabs 07/17/24 Hospital Course Operations None Procedures - (Lumbar puncture) Summary of Care Provided Minutes Spent on Discharge: 45 Hospital Course: Per HPI: NIYAH CARRANZA, is a 39 F came to ED with multiple symptoms for about 1 week. She describes as numbness around her mid abdomen front and back which is localized with some twitching movements of right lower extremity intermittently. It is not periodic or in a pattern. 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 For last few days in the past week she had intermittent urinary incontinence felt like urge incontinence with leaking of urine. Denies burning micturition. Denies fever or flulike symptoms. Her medical history starts from 2011 when she had diplopia/crossed eye and had MRI of brain and was some lesion was found. That lesion was followed for next several years without any diagnosis because there were small. In about 2018, she underwent divorce and had distress and felt like her right upper extremity stiffness or not in good control and thought it is from the stress. She is not yet diagnosed with a neurological condition including MS. In ED, the ER physician talked to [facility] neurologist and advised MRI brain, C-spine and thoracic spine with and without contrast that have been ordered. Patient is further admitted Patient's symptom complex does not relate to acute or subacute or strokelike symptoms as her symptoms are like about 1 week. In ED, stroke alert was not indicated and therefore not called. She denies smoking history. Drinks beer and wine few times in a month. Denies substance use. Hospital Course: 1. MS flare?39-year-old female presented to the hospital with numbness around her mid abdomen with some localized twitching in her right lower extremity. She had been noticing this issue for about a week prior to coming into the hospital. She states that her father in 2011 from MS and that she has had spots in her brain 2 other times that were consistent with MS. This time around she had an MRI of her cervical spine that demonstrated a C2-C5 lesion with edema. A lumbar puncture was obtained and lab work is still pending which will need to be followed up as an outpatient. [facility] was contacted and recommended 1 g of Solu-Medrol daily for 5 days. She did receive 4 of those doses and was discharged today with prescription for 1.25 g of prednisone to take tomorrow. She was also discharged on vitamin D as this was low and GI prophylaxis with Protonix. She is already looking for a neurologist in [place], [facility] will reach out to her for follow-up if [place] does not work out in time as she is to be seen within the next 1 to 3 months. She is feeling much better today and I discussed with her the plan for discharge she expressed understanding of the risk benefits of going home and would like to go home today. Physical Exam Narrative General: Alert, Oriented x3, Cooperative, No apparent distress HEENT: Atraumatic, PERRLA, EOMI, Normocephalic Oral: Moist Mucosa Neck: Supple, No JVD Lungs: Clear to auscultation, Normal air movement, No rhonchi, No wheeze, No rales Cardiovascular: Regular rate, Regular Rhythm, Normal S1, Normal S2, No murmurs Abdomen: Soft, Non Tender, Non-Distended, No Hepato-splenomegaly Extremities: No edema, Capillary Refill Less than 3 Seconds Skin: No rashes, No breakdown Musculoskeletal: No Tenderness to Palpation of Joints or Extremities Neurological: No focal neurological deficits, Motor Exam 5/5 strength throughout, Sensory exam intact to light touch and pain Psych/Mental Status: Normal Affect, Appropriate Weight / BMI Weight Weight: 143 lb 11.862 oz Body Mass Index (BMI) 24.6 ABG / Lab / Microbiology Data 07/13/24 08:05 07/14/24 05:54 Laboratory: Laboratory Results - last 24 hr 07/16/24 21:27: POC Glucose 193 H 07/17/24 06:34: POC Glucose 147 H Microbiology: Microbiology 07/15/24 14:01 Csf, Spinal Fluid Gram Stain - Final 07/13/24 10:55 Interface Orders Urine Culture - Final Mixed Gram Positive Organisms D/C Instructions Discharge Diet: No restrictions Call your doctor if you observe: Fever of 101 or Higher, Shortness of breath, Dizziness, Fainting spells, Swelling in the ankles, Chest pain and Increased palpitations (irregular heartbeat) Meaningful Use Info Meaningful Use Meaningful Use Diagnoses (Choose all that apply): None applicable Ischemic Stroke Statin Dosing Therapy Reference: STATIN DOSE THERAPY REFERENCE: * Patients > 75 years receive moderate or high dose statin therapy. * Patients 75 years or YOUNGER should receive HIGH intensity statin dose unless contraindicated. You will be required to document reason for non-treatment if statin daily dose does not meet guidelines. HIGH DOSE STATIN THERAPY DAILY Atorvastatin > than or = to 40 mg Rosuvastatin > than or = to 20 mg Amlodipine + Atorvastatin > than or = to 2.5/40 mg Ezetimibe + Simvastatin 10/80 mg Simvastatin 80mg Discharge Plan Admission Admit Date/Time: 07/13/24 12:57 Attending Provider: Denny Bennett Primary Care Provider: Filippo Huang Consulting Providers: Clifton Montgomery; Danny Arredondo; Socorro Singh; Gregoria Dominguez; Grace Queen; Jonah Monaco; Cleopatra Wells; Hai Aquino; Cuco Monaco; Mario Weldon; Allie Nava; Gordon Patel; Stacey Mustafa; Gino Guillermo; Gertrudis Hawthorne; Brijesh Waters; Jose Jim; Clayton Hudson; Madeline Kee; Christel López; Jesse Lassiter Instructions Patient Instructions: DYLLAN RN Lumbar Puncture Having Additional Instructions / Restrictions: Follow-up with MS specialist within the nest 3 months Discharge Orders/Prescriptions Prescriptions: New pantoprazole 40 mg Tablet,Delayed Release (Dr/Ec) 40 mg PO DAILY 30 Days Qty: 30 0RF prednisone 50 mg tablet 50 mg PO DAILY Qty: 25 0RF Rx Instructions: Take 25 tablets on 07/18/24 ergocalciferol (vitamin D2) [Vitamin D2] 1,250 mcg (50,000 unit) capsule 1,250 mcg PO QWEEK Qty: 7 0RF No Action multivitamin,[id number] [Complete Multivitamin] tablet 1 tab PO QDAY Referrals / Follow Up: Filippo Huang DO [Primary Care Provider] - Within 1 Week Disposition Disposition (needs filled in before D/C Order can be placed): Home, Self Care Charges/Coding Visit Charges Inpatient E&M: 63196 Disch Hosp >30min
[2024-07-19 13:05] LABS: Bedside Glucose 108 mg/dL (74-106)
[2024-07-19 13:05] LABS: Bedside Glucose 108 mg/dL (74-106)
[2024-07-21 16:10] LABS: Lyme IgG P18 Ab Absent (.); Lyme IgG P23 Ab Absent (.); Lyme IgG P28 Ab Absent (.); Lyme IgG P30 Ab Absent (.); Lyme IgG P39 Ab Absent (.); Lyme IgG P41 Ab Present (.); Lyme IgG P45 Ab Absent (.); Lyme IgG P58 Ab Absent (.); Lyme IgG P66 Ab Absent (.); Lyme IgG P93 Ab Absent (.); Lyme IgG WB Interpretation Negative (.); Lyme IgM P23 Ab Absent (.); Lyme IgM P39 Ab Absent (.); Lyme IgM P41 Ab Present (.); Lyme IgM WB Interpretation Negative (.); Lyme Scn Total Ab w/Rflx Negative (Negative)
[2024-07-22 15:09] LABS: VDRL Cerebrospinal Fluid Non Reactive (Non Rea:<1:1)
[2024-08-02 14:10] LABS: CSF Albumin 13 mg/dL (7-29); CSF IgG 4.5 mg/dL (0.0-6.7); CSF IgG Index 1.3 (0.0-0.7); CSF:Serum Albumin Index 3 (0-8); IgG Serum 1110 mg/dL (586-1602); IgG Synthesis Rate, CSF 10.6 mg/day (-9.9 TO +3.3); IgG/Alb Ratio, CSF 0.35 (0.00-0.25); Myelin Basic Protein, MBP 65.6 ng/mL (0.0-3.7); Serum Albumin 4.3 g/dL (3.9-4.9)
== END 2024-07-17 12:56 | disposition home or self-care (01) | DRG 60 ==
LOC: ED 12:54 → PCU 13:04
PROVIDERS: Nurse Practitioner Acute Care; Admitting Provider Internal Medicine; Emergency Provider Emergency Medicine; PCP Family Medicine; Visit Provider Family Medicine
DX: G35 Multiple sclerosis (principal); R32 Unspecified urinary incontinence; Z90.49 Acquired absence of other specified parts of digestive tract; R82.90 Unspecified abnormal findings in urine
CPT/HCPCS: 36415; 62328; 70450; 70553; 72156; 72157; 80048; 80053; 80061; 80076; 80307; 81001; 82040; 82042; 82306; 82607; 82746; 82784; 82945; 82962; 83735; 83873; 83916; 84157; 84443; 85025; 85610; 85730; 86038; 86225; 86235; 86592; 86617; 86618; 86703; 87070; 87086; 87088; 87205; 87798; 88108; 88313; 89050; 89051; 93005; 94668; 97161; 99284; A9575; A4216; J2919

== ENCOUNTER 2025-01-01 00:35 | Emergency (ER) | payer OTHER, SELFPAY ==
[2025-01-01 00:36] VITALS: BP 114/76; PULSE 70; RESP 18; TEMP 36.6; O2SAT 99; BMI 27.3
--- NOTE | 2025-01-01 01:04 | EDS_ITS ---
HPI History of Present Illness Chief Complaint: Bite Informant: patient Narrative Narrative: 39-year-old healthy female sustained an injury to her left forearm when she got in between her 2 healthy dogs whose vaccinations are up-to-date, as they were fighting over a bone. They are not ill and were fine prior to this. She denies any loss of function, numbness, weakness. No other injuries. Tetanus Immunization: >10 years [facility] Medical History no medical history no medical history Home Medications ?Medication ?Instructions ?Recorded ?Last Taken ?Type multivitamin,[id number] 1 tab PO QDAY 01/29/18 U nknown History (Complete Multivitamin tablet) ergocalciferol (vitamin D2) 1,250 1,250 mcg PO QWEEK # 7 caps 07/17/24 Unknown Rx mcg (50,000 unit) capsule (Vitamin D2) pantoprazole 40 mg tablet,delayed 40 mg PO DAILY 30 da ys #30 tabs 07/17/24 Unknown Rx release prednisone 50 mg tablet 50 mg PO DAILY #25 tabs 06/28 11/19 Unknown Rx amoxicillin 875 mg-potassium 875 mg PO Q12H #20 TABLET S 01/01/25 Unknown Rx clavulanate 125 mg tablet Allergy/AdvReac Type Severity Reaction Status Date / Time No Known Allergies Allergy Verified 01/01/25 00:36 Surgical History History of cholecystectomy Social History Smoking Status: Never smoker alcohol intake: current alcohol intake frequency: a few times a month Alcohol type: beer and wine ROS ROS ED Constitutional Constitutional ED: Denies chills or fever(s) Musculoskeletal Musculoskeletal: Reports extremity pain; Denies neck pain Integumentary Denies Abrasions, rash or wounds Neurologic Neurologic: Denies paresthesias or weakness EXAM Physical Exam Const Vital Signs: 01/01/25 00:36 Temperature 98 F Temperature Source Oral Pulse Rate 70 Respiratory Rate 18 Blood Pressure 114/76 Blood Pressure Mean 88 Pulse Ox 99 Oxygen Delivery Method Room Air Positive well nourished and well developed General Appearance ED: well developed and NAD Neck full ROM and supple Back/Spine normal ROM and normal to inspection Extremity Extremity Narrative: Laceration/puncture wound to the volar left forearm, and a superficial partial- thickness laceration to the dorsal aspect. All extensor and flexor tendon function intact throughout all fingers and wrist, all compartment soft and nondistended. Couple of other marquez consistent with contusion from other teeth but no other punctures of the skin. Neuro oriented x3, no focal motor deficits and no sensory deficits noted Sensorium / Orientation: alert Psych mental status grossly normal and thought process normal Skin Skin Narrative: 1.5 cm full-thickness laceration with subcutaneous fat exposed volar left forearm. 0.5 cm partial-thickness laceration dorsal forearm. No other lacerations. Rashes: no rashes MDM MDM MDM Narrative Medical decision making narrative: Patient was amenable to updating her tetanus. The dorsal laceration showing soares bcutaneous fat herniating from the wound was repaired with a horizontal mattress stitch after irrigating profusely. The puncture was not deep. The 1 on the dorsal side does not need to be repaired, it was cleansed and dressed by nursing as was the other 1 after repair. Started on Augmentin to prevent infection, and provided a prescription for 7-day course. Procedures Lacerations Volar left forearm: Length: 1.5 cm Depth: Sub Q Shape: Linear Prep: Sterile Conditions and Chlorhexadine Laceration repair: Irrigated (Pressure), Lidocaine with epi (1cc, 1%), Local and Skin sutures Irrigated (ml): 50 Number of Sutures/Mario: 1 Suture Information: Ethilon, Horizontal, Mattress and 4-0 Comment: Tolerated well no complications. Pretreated with topical LET Discharge Plan Triage Chief Complaint: Bite ED Provider: Michael Waterman Dx/Rx/DC Orders Clinical Impression: Open wound of left forearm due to dog bite, Immunization, tetanus-diphtheria Instructions: Tdap Vaccine, ED Dog Bite, ED Laceration, All Closures Prescriptions: New amoxicillin-pot clavulanate 875-125 mg tablet 875 mg PO Q12H Qty: 20 0RF No Action multivitamin,[id number] [Complete Multivitamin] tablet 1 tab PO QDAY pantoprazole 40 mg Tablet,Delayed Release (Dr/Ec) 40 mg PO DAILY 30 Days Qty: 30 0RF prednisone 50 mg tablet 50 mg PO DAILY Qty: 25 0RF Rx Instructions: Take 25 tablets on 07/18/24 ergocalciferol (vitamin D2) [Vitamin D2] 1,250 mcg (50,000 unit) capsule 1,250 mcg PO QWEEK Qty: 7 0RF Primary Care Provider: Ashley Lockett Referrals: Filippo Huang DO [Med Staff - Typesetting Machine Operator/Tender] - 10-14 Days suture removal (or urgent care/ER) Print Language: Lithuanian Disposition Disposition: Home, Self Care
[2025-01-01] MEDS: Amox/Clavulanate 875 MG Tablet PO (01:18)
[2025-01-01] MEDS: Lidocaine 1% (20 ml mdv) 20 ML Vial INFILT (01:19)
[2025-01-01] MEDS: Diphth,Pertuss(Acell),Tet Vac 0.5 ML Vial IM (01:19)
[2025-01-01] MEDS: Lidocaine/Epi/Tetracaine 50 ML 1 APPLIC TOPICAL (01:19)
[2025-01-01 01:55] VITALS: BP 123/62; PULSE 72; RESP 18; TEMP 36.7; O2SAT 100
== END 2025-01-01 01:58 | disposition home or self-care (01) ==
PROVIDERS: Emergency Provider Emergency Medicine; PCP Nurse Practitioner Family; Visit Provider Emergency Medicine
DX: S51.852A Open bite of left forearm, initial encounter (principal); Z90.49 Acquired absence of other specified parts of digestive tract; Z23 Encounter for immunization; W54.0XXA Bitten by dog, initial encounter; Y93.89 Activity, other specified
CPT/HCPCS: 12001; 90471; 90715; 99284

== ENCOUNTER → 2025-07-21 | Outpatient (CLI) | payer OTHER, SELFPAY ==
--- NOTE | 2025-07-21 09:20 | MRI_ITS ---
PROCEDURE: SPINE CERVICAL W/WO CONTRAST 07/21/2025 REASON FOR EXAM: MULTIPLE SCLEROSIS TECHNIQUE: Procedure Code: [id number] Modality: MR Procedure: SPINE CERVICAL W/WO CONTRAST Multiplanar and multisequence images were obtained with intravenous gadolinium- based contrast administration. CONTRAST: Clariscan VOLUME: 14 mL. COMPARISON: Cervical spine MRI 07/13/2024. FINDINGS: Vertebrae: Cervical vertebral body heights are preserved. Alignment: Normal. No spondylolisthesis Spinal Cord: Although still visible, the area of abnormal cervical cord signal from the C2 through C4 levels is less pronounced than on the prior study, and demonstrates markedly diminished degree of postcontrast enhancement. At the C6-C7 level, more subtle cervical cord signal changes are likely stable, and no significant degree of postcontrast enhancement is noted. No new or worsened cervical cord changes are seen. Cervical Discs: Minimal degenerative changes of the cervical spine are seen. A very mild disc bulge is C2-C3 is noted. Minimal disc bulging C4-C5 and C5-C6 levels are noted. No spinal canal stenosis or neural foraminal narrowing is evident. MRI/Spine Cervical W/WO Contrast IMPRESSION: 1. Decreased prominence and markedly decreased enhancement the previously noted C2 through C4 cervical cord lesion. 2. Stable nonenhancing and more subtle cervical cord lesion of the C6-C7 levels . Reading Location: [id number]
--- NOTE | 2025-07-21 09:20 | MRI_ITS ---
PROCEDURE: BRAIN W/WO CONTRAST 07/21/2025 REASON FOR EXAM: MULTIPLE SCLEROSIS TECHNIQUE: Procedure Code: [id number] Modality: MR Procedure: BRAIN W/WO CONTRAST Multiplanar and multisequence images were obtained. CONTRAST: Clariscan VOLUME: 14 mL COMPARISON: MRI brain with and without contrast, 07/13/2024. FINDINGS: There is abnormal periventricular white matter signal lateral to the occipital horn of the left lateral ventricle, lateral to the temporal horn of the right lateral ventricle, and posterior to the atrium of the right lateral ventricle. There is a nodular area of abnormal white matter signal in the left temporal lobe which has increased in size since the prior exam. The remaining areas of white matter signal abnormality have not significantly changed since the prior exam. There is a normal sulcal pattern and gyral configuration. There is no evidence of acute intracranial hemorrhage or infarction. The harp-white differentiation is well preserved. There is no evidence of restricted diffusion. The ventricles and basilar cisterns are normal. There are normal flow voids demonstrated in the recognized intracranial vessels. The cerebellum and brainstem are unremarkable. The cerebellar pontine angles are normal. The craniovertebral junction is normal. The sella and suprasellar regions are normal. The orbits and retro-orbital regions are unremarkable. The optic nerves are unremarkable. The nasal septum is midline. Status post FESS. There is mucoperiosteal thickening of both maxillary sinuses. The mastoid air cells are clear. There is normal bone marrow signal in the skull base and calvarium. There is no abnormal intracranial contrast enhancement. MRI/Brain W/WO Contrast IMPRESSION: 1. Areas of abnormal periventricular white matter signal as described. These are nonspecific but are consistent with multiple sclerosis. There has been interval increase in size of an area of abnormal sig nal in the left temporal lobe. 2. Other findings as noted. Reading Location: [id number]
--- NOTE | 2025-07-21 09:20 | MRI_ITS ---
PROCEDURE: SPINE THORACIC W/WO CONTRAST 07/21/2025 REASON FOR EXAM: MULTIPLE SCLEROSIS TECHNIQUE: Thoracic spine MRI without and with intravenous gadolinium-based contrast. Multiplanar and multisequence images were obtained. CONTRAST: Clariscan VOLUME: 14mL IV. COMPARISON: Thoracic spine MRI 07/13/2024. FINDINGS: Vertebrae: Thoracic vertebral body heights are preserved. Bone marrow signal is unremarkable. Alignment: Normal. No spondylolisthesis. Spinal Cord: Normal appearance of the thoracic cord is seen, including the conus medullaris. No area of abnormal enhancement is seen. Disc spaces: A small central/right paracentral disc protrusion is seen at the T7-T8 level, fairly similar to the prior study of 07/13/2024. No significant spinal canal stenosis or neural foraminal narrowing is noted. Paraspinal Tissues: Unremarkable. Postcontrast images: No unexpected area of postcontrast enhancement is seen. MRI/Spine Thoracic W/WO Contrast IMPRESSION: 1. Normal appearance of the thoracic cord, without area of abnormal postcontras t enhancement. 2. Stable examination, otherwise. Reading Location: [id number]
--- NOTE | 2025-07-21 09:20 | MRI_ITS ---
PROCEDURE: SPINE THORACIC W/WO CONTRAST 07/21/2025 REASON FOR EXAM: MULTIPLE SCLEROSIS TECHNIQUE: Thoracic spine MRI without and with intravenous gadolinium-based contrast. Multiplanar and multisequence images were obtained. CONTRAST: Clariscan VOLUME: 14mL IV. COMPARISON: Thoracic spine MRI 07/13/2024. FINDINGS: Vertebrae: Thoracic vertebral body heights are preserved. Bone marrow signal is unremarkable. Alignment: Normal. No spondylolisthesis. Spinal Cord: Normal appearance of the thoracic cord is seen, including the conus medullaris. No area of abnormal enhancement is seen. Disc spaces: A small central/right paracentral disc protrusion is seen at the T7-T8 level, fairly similar to the prior study of 07/13/2024. No significant spinal canal stenosis or neural foraminal narrowing is noted. Paraspinal Tissues: Unremarkable. Postcontrast images: No unexpected area of postcontrast enhancement is seen. MRI/Spine Thoracic W/WO Contrast IMPRESSION: 1. Normal appearance of the thoracic cord, without area of abnormal postcontras t enhancement. 2. Stable examination, otherwise. Reading Location: [id number]
--- OUTSIDE RECORDS SUMMARY | 2025-07-21 09:59 | XMS RPT_ITS | CCD ---
Author Organization [facility] Informat ion Partnership [facility] Care Team Providers Care Livestock Producer Name Role Phone LOUANNSTEPHANY Admitting Unavailable LOUANNSTEPHANY Attending Unavailable LOUANNSTEPHANY MIGUEL Primary Care Unavailable Unavailable Primary Care Provider Unavailjakob Lockett CHANDELIER MAKER, Ofelia Primary Care Provider Maikol, Jesse Admitting Unavailable Clifton Montgomery Consulting Unavailable Denny Bennett Attending Unavailable SalFilippo Primary Care Unavailable Adeli, Amir Consulting Unavailable Hinduja, Socorro Consulting Unavailable Alberto, Gregoria Consulting Unavailable Zha, Grace Consulting Unavailable Jacinda, Jonah Consulting Unavailable Russell, Cleopatra Consulting Unavailable Bittar, Hai Consulting Unavailable Cuco Monaco Consulting Unavailable Mario Weldon Consulting Unavailable Allei Nava Consulting Unavailable Gordon Patel Consulting Unavailable Stacey Mustafa Consulting Unavailable Ridshanta, Mohamed Consulting Unavailable Zaghlokamranh, Mhd Rocky Consulting UnavailBrijesh Kim Consulting Unavailable Jim, Rami Consulting Unavailable Clayton Hudson Consulting Unavailable Madeline Kee Consulting Unavailable Christel López Consulting Unavailable Maikol, Jesse Consulting Unavailable Clifton Montgomery Consulting Unavailable Denny Bennett Attending Unavailable [facility] Unavailable Maikol, Jesse Admitting Unavailable Adeli, Amir Consulting Unavailable Hinduja, Socorro Consulting Unavailable Alberto, Gregoria Consulting Unavailable Zha, Grace Consulting Unavailable Jacinda, Jonah Consulting Unavailable Russell, Cleopatra Consulting Unavailable Bittar, Hai Consulting Unavailable Cuco Monaco Consulting Unavailable Mario Weldon Consulting Unavailable Allie Nava Consulting Unavailable Gordon Patel Consulting Unavailable Ramsey, Stacey Consulting Unavailable Ridha, Mohamed Consulting Unavailable Zaghlouleh, Mhd Rocky Consulting UnavailBrijesh Kim Consulting Unavailable Jose Jim Consulting Unavailable Clayton Hudson Consulting Unavailable Madeline Kee Consulting Unavailable Christel López Consulting Unavailable Jesse Lassiter Consulting Unavailable Denny Bennett Consulting Unavailable Jesse Lassiter Attending Unavailable Barbara Villalobos Attending Unavailable Carolyn Ireland Attending Unavailable Filippo Huang Primary Care Unavailable Carolyn Ireland Referring Unavailable Michael Waterman Attending Unavailable Beto Ofelia Primary Care Unavailable Dr. Michael Waterman MD Emergency Provider Beto CHANDELIER MAKER-C [place] Primary Care Provider [phone] BETO OFELIA Primary Care Unavailable BETO DELA[place] WATER GAP Primary Care Unavailable MEEK GOULD Attending Unavailable Allergies Allergy Classification Reported Allergen(s) Allergy Type Date of Onset Reaction(s) Facility (4 sources) Feather; Translations: [FEATHERS] Drug Allergy 4 Other: See Comments [facility] Work Phone: (4 sources) House dust mite; Translations: [DUST MITES] Allergy to substance 4 Other: See Comments [facility] Work Phone: (4 sources) Mold Extract; Translations: [MOLD] Drug Allergy 4 Other: See Comments [facility] Work Phone: Medications Current Medications Medication Drug Class(es) Dates Sig (Normalized) Sig (Original) amoxicillin 875 mg / clavulanate 125 mg oral tablet (4 sources) Penicillin-class Antibacterial Start: 01-01-2025 amoxicillin-clavu lanate potassium (AUGMENTIN) 875-125 mg per tablet 01/01/2025 Active Start: 01-01-2025 take 1 tablet by peewee th every twelve hours Amoxicillin-Pot Clavulanate 875-125 mg tablet Active 875 mg PO Q12H January 01, 2025 12:00am Start: 04-30-2022 End: 05-05-2022 take 1 tablet by mouth twice daily amoxicillin-clavulanic acid (AUGMENTIN) 875-125 mg per tablet Take 1 tablet by mouth twice daily for 5 days. 10 tablet 0 04/30/2022 05/05/2022 Active Comment on above: Take 1 tablet by [facility] twice daily for 5 days. azithromycin 250 mg oral tablet (1 source) Macrolide Antimicrobial Start: End: take 2 tablets by mouth once daily, then take 1 tablet by mouth once daily azithromycin (ZITHROMAX) 250 mg tablet Indications: Sore throat Take 2 tablets by mouth once daily for 1 day, THEN 1 tablet once daily for 4 days. 6 tablet 05/06/2025 05/11/2025 Active drospirenone / Ethinyl Estradiol (1 source) Progestin, Estrogen Start: take 1 tablet by mouth once daily VESTURA, 28, 3-0.02 mg per tablet Take 1 tablet by mouth once daily. 05/01/2025 Active ergocalciferol 1.25 mg oral capsule (1 source) Provitamin D2 Compound Start: Ergocalciferol (Vitamin D2) (Vitamin D2) 1,250 mcg (50,000 unit) capsule Active 1250 ug PO EVERY WEEK July 16, 2024 11:00pm multivitamin (DAILY MULTIVITAMIN) ORAL tablet (3 sources) Start: take 1 tablet by mouth once daily multivitamin (DAILY MULTIVITAMIN) ORAL tablet Take one(1) tablet daily. 0 11/19/2010 Active Comment on above: Take one(1) tablet d aily. Multivitamin,Tx-Iron-M inerals (Complete Multivitamin) tablet (1 source) Start: Multivitamin,Tx-Iron- Minerals (Complete Multivitamin) tablet Active 1 {tbl} PO daily January 28, 2018 11:00pm multivitamin,tx-iron-m inerals tablet (1 source) Start: take 1 tablet by mouth once daily multivitamin,tx-iron- minerals tablet Active 1 TABLET PO daily January 28, 2018 11:00pm pantoprazole 40 mg delayed release oral tablet (1 source) Proton Pump Inhibitor Start: take 1 tablet by mouth once daily Pantoprazole 40 mg Tablet,Delayed Release (Dr/Ec) Active 40 mg PO DAILY July 16, 2024 11:00pm predniSONE 20 mg oral tablet (2 sources) Start: End: 025 take 2 tablets by mouth once daily predniSONE (DELTASONE) 20 mg tablet Indications: Sore throat Take 2 tablets by mouth once daily for 5 days. 10 tablet 05/06/2025 05/11/2025 Active Start: 07-17-2024 take 1 tablet by peewee th once daily Prednisone 50 mg tablet Active 50 mg PO DAILY July 16, 2024 11:00pm Take 25 tablets on 07/18/24 Problems Active Problems Problem Classification Problem Date Documented Da te Episodic/Chronic Genitourinary symptoms and ill-defined conditions (1 source) Urinary incontinence; Translations: [Unspecified urinary incontinence] 07-13-2024 Chronic Immunizations and screening for infectious disease (4 sources) Contact with and (suspected) exposure to other viral communicable diseases; Translations: [Requires tetanus and diphtheria vaccination] Onset: 06-12-2020 01-01-2025 Episodic Multiple sclerosis (3 sources) Multiple sclerosis; Translations: [Multiple sclerosis] Onset: 03-27-2012 03-27-2012 Chronic Open wounds of extremities (2 sources) Open bite of left forearm, initial encounter; Translations: [Open wound of left forearm due to dog bite] Onset: 01-13-2025 01-01-2025 Episodic Other aftercare (1 source) Wound finding; Translations: [Encounter for other specified aftercare] 01-11-2025 Episodic Other aftercare (1 source) Removal of sutures done; Translations: [Encounter for removal of sutures] 01-11-2025 Episodic Other ear and sense organ disorders (2 sources) Otalgia, left ear; Translations: [Left ear pain] 01-29-2018 Episodic Other nervous system disorders (1 source) Paresthesia; Translations: [Paresthesia of skin] 07-21-2024 Episodic Other non-traumatic joint disorders (1 source) Bilateral hand joint stiffness; Translations: [Stiffness of right hand, not elsewhere classified] 07-13-2024 Episodic Other upper respiratory infections (1 source) Bacterial sinusitis; Translations: [Chronic sinusitis, unspecified] Chronic Other upper respiratory infections (2 sources) Sore throat symptom; Translations: [Acute pharyngitis, unspecified] Onset: 05-06-2025 05-06-2025 Episodic Unclassified (1 source) or urgent care/ER Past or Other Problems Problem Classification Problem Date Documented Date Episodic/Chronic Biliary tract disease (6 sources) Biliary colic; Translations: [Calculus of bile duct without cholangitis or cholecystitis without obstruction] Onset: 06-22-2013 06-22-2013 Episodic Conditions associated with dizziness or vertigo (2 sources) Dizziness and giddiness; Translations: [Loss of equilibrium] Onset: 08-13-2024 07-13-2024 Episodic Contraceptive and procreative management (2 sources) Intrauterine contraceptive device in situ; Translations: [Encounter for routine checking of intrauterine contraceptive device] Onset: 11-19-2010 Resolved: 12-10-2011 12-10-2011 Episodic Other nervous system disorders (2 sources) Paresthesia of skin; Translations: [Paresthesia of skin] Onset: 08-13-2024 Episodic Other and delivery including normal (2 sources) Normal in primigravida; Translations: [Encounter for supervision of normal first , unspecified trimester] Onset: 02-05-2007 Resolved: 07-26-2010 07-26-2010 Episodic Results Test Name Value Interpretation Reference Range Facil ity KIRTOVon 05-06-2025 CNOV Office Visit (WOUCA) WENDY DE JESUS ([id number]) 1985 F Date Time Provider Department 05/06/25 1:45 PM MEEK GOULD During your visit today, we recorded the following information about you: Temperature Pulse Respiration Blood pressure 99.5 degrees 100/minute 18/minute 118/67 Weight 70.9 kg Meek Gould MD 05/06/2025 2:09 PM Signed Pharyngitis You have been diagnosed with pharyngitis. Pharyngitis is an infection of the back of your throat. Most sore throats are caused by viruses and do not require antibiotics. Some sore throats are caused by bacteria. Antibiotics will help this type of sore throat. A test for Strep throat may be used to help in your diagnosis. Symptoms of pharyngitis include fever (temperature higher than 100.4?F / 38?C), sore throat, and a hoarse voice. If you have cold symptoms such as sneezing and coughing, runny nose, or congestion, your sore throat is more likely to be caused by a virus and not bacteria. Whether your sore throat is caused by a virus or bacteria, you may need medication for pain and fever. You should also drink a lot of fluid. If your sore throat is caused by bacteria, you will also need antibiotics. If your sore throat is caused by a virus, you do not need antibiotics. Antibiotics will not kill the virus, and they may cause side effects, like diarrhea, abdominal cramps, or allergic reactions. Taking an antibiotic that you do not need may cause ?resistance,? meaning that antibiotic won't work in the future when you have a true bacterial infection. YOU SHOULD SEEK MEDICAL ATTENTION IMMEDIATELY, EITHER HERE OR AT THE NEAREST EMERGENCY DEPARTMENT, IF ANY OF THE FOLLOWING OCCURS: You have difficulty breathing. Your voices changes or seems muffled. You have trouble swallowing. You have a fever (temperature higher than 100.4?F / 38?C) that won't go away. You feel worse or do not improve after 2 to 3 days. Meek Gould MD 05/06/2025 2:16 PM Signed [facility] Subjective Wendy De Jesus is a 40 year old female. Patient presents with: Sore Throat: Fever, bodyaches x1 day Pt here with 5 day hx of a sT and right neck lump painful then fever x 2 days now feeling worse no cough no rhinorrhea no rashes Sore Throat Associated symptoms include congestion. Pertinent negatives include no coughing, headaches, shortness of breath or stridor. Review of Systems Constitutional: Positive for chills, fatigue and fever. HENT: Positive for congestion and sore throat. Negative for rhinorrhea. Respiratory: Negative for cough, shortness of breath, wheezing and stridor. Neurological: Negative for dizziness and headaches. Objective BP 118/67 Pulse 100 Temp 37.5 ?C (99.5 ?F) Resp 18 Wt 70.9 kg (156 lb 4.9 oz) LMP 10/01/2010 SpO2 100% Physical Exam Vitals and nursing note reviewed. Constitutional: Appearance: Normal appearance. She is not ill-appearing. HENT: Right Ear: Tympanic membrane and ear canal normal. Left Ear: Tympanic membrane and ear canal normal. Nose: Congestion present. Mouth/Throat: Mouth: Mucous membranes are moist. Pharynx: Posterior oropharyngeal erythema present. No oropharyngeal exudate. Cardiovascular: Rate and Rhythm: Normal rate and regular rhythm. Heart sounds: Normal heart sounds. Pulmonary: Effort: Pulmonary effort is normal. Breath sounds: Normal breath sounds. No stridor. No wheezing, rhonchi or rales. Musculoskeletal: Cervical back: Normal range of motion and neck supple. Lymphadenopathy: Cervical: Cervical adenopathy present. Neurological: Mental Status: She is alert and oriented to person, place, and time. Psychiatric: Mood and Affect: Mood normal. Behavior: Behavior normal. Results for orders placed or performed in visit on 05/06/25 STREP A MOLECULAR (POC) Specimen: Oropharynx; Swab Result Value Ref Range Strep A (POCT) Negative Negative Procedural Control Valid {ASSESSMENT/PLAN: 1. Sore throat - ICD9: 462, ICD10: J02.9 Start prednisone for now if not improved in a few dasy can add the antibiotics return here as needed - STREP A MOLECULAR (POC) - PREDNISONE 20 MG TABLET - AZITHROMYCIN 250 MG TABLET Meek Gould MD History and Record Review Systemic symptoms present included: Fever chills Differential Diagnoses - pharyngitis is more likely for the following reason(s): suggested by HANDP - strep is less likely for the following reason(s): laboratory studies not suggestive Disposition The patient was discharged. Procedures Allergies As of Date: 05/06/2025 Noted Allergy Reaction DUST MITES 08/04/2014 14 - Other: See Comments Comments: ear congestion/chronic sinus infection FEATHERS 08/04/2014 14 - Other: See Comments Comments: congestion MOLD 08/04/2014 14 - Other: See Comments Comments: congestion Date Reviewed: 05/06/2025 Revi (more content not included)... Normal [facility] STREP A MOLECULAR (POC)on Procedural Control Valid [facility] Strep A (POCT) Negative Negative [facility] CNOVon 01-11-2025 CNOV Office Visit (UCWSTR ) WENDY DE JESUS ([id number]) 1985 F Date Time Provider Department 01/11/25 5:00 PM ITZEL LINDER [facility] During your visit today, we recorded the following information about you: Temperature Pulse Respiration Blood pressure 98.2 degrees 80/minute 16/minute 120/72 Weight 69.7 kg Itzel Linder APRN.EXCEPTIONAL CHILDREN TEACHER 01/11/2025 5:08 PM Signed [facility] Subjective Wendy De Jesus is a 39 year old female. Patient presents with: Suture Removal: left forearm x 10 days, 1 suture Patient came in to have sutures removed. Patient had it placed 10 days ago. Patient has not had any trouble with the site. The history is provided by the patient. No asl interpreter was used. Suture Removal Review of Systems Constitutional: Negative. HENT: Negative. Objective BP 120/72 Pulse 80 Temp 36.8 ?C (98.2 ?F) Resp 16 Wt 69.7 kg (153 lb 10.6 oz) LMP 10/01/2010 SpO2 97% Physical Exam Constitutional: Appearance: Normal appearance. Pulmonary: Effort: Pulmonary effort is normal. Skin: Comments: Patient wound located in the area marked above healed completely wound approximated. 1 stitch was removed successfully patient tolerated well. Neurological: Mental Status: She is alert. {ASSESSMENT/PLAN: 1. Visit for wound check - ICD9: V58.89, ICD10: Z51.89 (primary diagnosis) 2. Visit for suture removal - ICD9: V58.32, ICD10: Z48.02 1 suture was removed successfully patient tolerated well. Itzel Linder APRN.CNP History and Record Review External record(s) reviewed: no prior records. Disposition The patient was discharged. SUTURE REMOVAL Date/Time: 01/11/2025 5:06 PM Performed by: Itzel Linder APRN.EXCEPTIONAL CHILDREN TEACHER Authorized by: Itzel Linder APRN.EXCEPTIONAL CHILDREN TEACHER Location: Body area: Upper extremity Location details: Left lower arm Procedure details: Wound appearance: Clean Suture not placed during surgical procedure Allergies As of Date: 01/11/2025 Noted Allergy Reaction DUST MITES 08/04/2014 14 - Other: See Comments Comments: ear congestion/chronic sinus infection FEATHERS 08/04/2014 14 - Other: See Comments Comments: congestion MOLD 08/04/2014 14 - Other: See Comments Comments: congestion Date Reviewed: 01/11/2025 Reviewed by: Brittany He MA - Fully Assessed Reason for Visit: Suture Removal [105] Cmt: left forearm x 10 days, 1 suture Primary Visit Diagnosis:Visit for wound check [Z51.89] Other Visit Diagnosis:Visit for suture removal [Z48.02] Order(s):Suture Removal [PRO95] Order #: [id number] Prescriptions as of 01/11/2025 - amoxicillin-clavulanate potassium (AUGMENTIN) 875-125 mg per tablet - multivitamin (DAILY MULTIVITAMIN) ORAL tablet Take one(1) tablet daily. Problem List As Of Date 01/11/2025 Noted Resolved Supervision of Normal First [Z34.00] 02/05/2007 07/26/2010 IUD surveillance [Z30.431] 11/19/2010 12/10/2011 MS (multiple sclerosis) [G35] 03/27/2012 Biliary colic [K80.50] 06/22/2013 Cholelithiasis [K80.20] 06/22/2013 Encounter Status:Closed by ITZEL LINDER on 01/11/[address] [facility] Suture Removalon 01-11-2025 Itzel Linder APRN.EXCEPTIONAL CHILDREN TEACHER 01/11/2025 5:08 PM SUTURE REMOVAL Date/Time: 01/11/2025 5:06 PM Performed by: Itzel Linder APRN.EXCEPTIONAL CHILDREN TEACHER Authorized by: Itzel Linder APRN.EXCEPTIONAL CHILDREN TEACHER Location: Body area: Upper extremity Location details: Left lower arm Procedure details: Wound appearance: Clean Suture not placed during surgical procedure [facility] Emergency Department Summary on 01-01-2025 Emergency Department Summary [facility] Medical Records Department [address] [place] [id number] Emergency Department Summary 01/01/25 MR#: [id number] Acct: [id number] Name: WENDY DE JESUS Rep #: [id number] : 1985 39 From: Michael Waterman MD PCP: RIMA Wood Status:REG ER Location: ED HPI History of Present Illness Chief Complaint: Bite Informant: patient Narrative Narrative: 39-year-old healthy female sustained an injury to her left forearm when she got in between her 2 healthy dogs whose vaccinations are up-to-date, as they were fighting over a bone. They are not ill and were fine prior to this. She denies any loss of function, numbness, weakness. No other injuries. Tetanus Immunization: >10 years PFSH PFSH Medical History no medical history no medical history Home Medications ???Medication ???Instructions ???Recorded ???Last Taken ???Type multivitamin,tx-iron-mi nerals 1 tab PO QDAY 01/29/18 Unknown His tory (Complete Multivitamin tablet) ergocalciferol (vitamin D2) 1,250 1,250 mcg PO QWEEK #7 caps Unknown Rx mcg (50,000 unit) capsule (Vitamin D2) pantoprazole 40 mg tablet,delayed 40 mg PO DAILY 30 days #30 tabs 0 07/17/24 Unknown Rx release prednisone 50 mg tablet 50 mg PO DAILY #25 tabs 07/17/24 U nknown Rx amoxicillin 875 mg-potassium 875 mg PO Q12H #20 TABLETS 5 Unknown Rx clavulanate 125 mg tablet Allergy/AdvReac Type Severity Reaction Status Date / Time No Known Allergies Allergy Verified 01/01/25 00:36 Surgical History History of cholecystectomy Social History Smoking Status: Never smoker alcohol intake: current alcohol intake frequency: a few times a month Alcohol type: beer and wine ROS ROS ED Constitutional Constitutional ED: Denies chills or fever(s) Musculoskeletal Musculoskeletal: Reports extremity pain; Denies neck pain Integumentary Denies Abrasions, rash or wounds Neurologic Neurologic: Denies paresthesias or weakness EXAM Physical Exam Const Vital Signs: 01/01/25 00:36 Temperature 98 F Temperature Source Oral Pulse Rate 70 Respiratory Rate 18 Blood Pressure 114/76 Blood Pressure Mean 88 Pulse Ox 99 Oxygen Delivery Method Room Air Positive well nourished and well developed General Appearance ED: well developed and NAD Neck full ROM and supple Back/Spine normal ROM and normal to inspection Extremity Extremity Narrative: Laceration/puncture wound to the volar left forearm, and a superficial partial-thickness laceration to the dorsal aspect. All extensor and flexor tendon function intact throughout all fingers and wrist, all compartment soft and nondistended. Couple of other marquez consistent with contusion from other teeth but no other punctures of the skin. Neuro oriented x3, no focal motor deficits and no sensory deficits noted Sensorium / Orientation: alert Psych mental status grossly normal and thought process normal Skin Skin Narrative: 1.5 cm full-thickness laceration with subcutaneous fat exposed volar left forearm. 0.5 cm partial- thickness laceration dorsal forearm. No other lacerations. Rashes: no rashes MDM MDM MDM Narrative Medical decision making narrative: Patient was amenable to updating her tetanus. The dorsal laceration showing subcutaneous fat herniating from the wound was repaired with a horizontal mattress stitch after irrigating profusely. The puncture was not deep. The 1 on the dorsal side does not need to be repaired, it was cleansed and dressed by nursing as was the other 1 after repair. Started on Augmentin to prevent infection, and provided a prescription for 7-day course. Procedures Lacerations Volar left forearm: Length: 1.5 cm Depth: Sub Q Shape: Linear Prep: Sterile Conditions and Chlorhexadine Laceration repair: Irrigated (Pressure), Lidocaine with epi (1cc, 1%), Local and Skin sutures Irrigated (ml): 50 Number of Sutures/[place]: 1 Suture Information: Ethilon, Horizontal, Mattress and 4-0 Comment: Tolerated well no complications. Pretreated with topical LET Discharge Plan Triage Chief Complaint: Bite ED Provider: Michael Waterman Dx/Rx/DC Orders Clinical Impression: Open wound of left forearm due to dog bite, Immunization, tetanus-diphtheria Instructions: Tdap Vaccine, ED Dog Bite, ED Laceration, All Closures Prescriptions: New amoxicillin-pot clavulanate 875-125 mg tablet 875 mg PO Q12H Qty: 20 0RF No Action multivitamin,tx-iron-mi nerals [Complete Multivitamin] tablet 1 tab PO QDAY pantoprazole 40 mg Tablet,Delayed Release (Dr/Ec) 40 mg PO DAILY 30 Days Qty: 30 0RF prednisone 50 mg tablet 50 mg PO DAILY Qty: 25 0RF Rx I (more content not included)... Normal [facility] IgG Index AND Synthesis Rate on 08-02-2024 Albumin [Mass/Vol] 4.3 g/dL Normal 3.9-4.9 [facility] Comment on above: Order Comment: Test( s) [id number]-Fakmgi Basic Protein, CSFresults are labeled for research purposes only by theassay's veterinary bacteriologist. The performance characteristics ofthis assay have not been established by the veterinary bacteriologist.The result should not be used for treatment or fordiagnostic purposes without confirmation of the diagnosisby another medically established diagnostic product orprocedure. The performance characteristics were determinedby [facility]. Performed By: #### L 500.4050, L100.0100 #### [facility] [address] [facility] [id number] CSF ALBUMIN 13 mg/dL Normal 7-29 [facility] Comment on above: Order Comment: Test( s) [id number]-Fbgorq Basic Protein, CSFresults are labeled for research purposes only by theassay's veterinary bacteriologist. The performance characteristics ofthis assay have not been established by the veterinary bacteriologist.The result should not be used for treatment or fordiagnostic purposes without confirmation of the diagnosisby another medically established diagnostic product orprocedure. The performance characteristics were determinedby [facility]. Performed By: #### L 500.4050, L100.0100 #### [facility] [address] [facility] [id number] CSF IgG 4.5 mg/dL Normal 0.0-6.7 [facility] Comment on above: Order Comment: Test( s) [id number]-Mbwfnd Basic Protein, CSFresults are labeled for research purposes only by theassay's veterinary bacteriologist. The performance characteristics ofthis assay have not been established by the veterinary bacteriologist.The result should not be used for treatment or fordiagnostic purposes without confirmation of the diagnosisby another medically established diagnostic product orprocedure. The performance characteristics were determinedby [facility]. Performed By: #### L 500.4050, L100.0100 #### [facility] [address] [place], [address] CSF IgG INDEX 1.3 Abnormal 0.0-0.7 [place] [facility] Comment on above: Order Comment: Test( s) 036361-Wesawt Basic Protein, CSFresults are labeled for research purposes only by theassay's veterinary bacteriologist. The performance characteristics ofthis assay have not been established by the veterinary bacteriologist.The result should not be used for treatment or fordiagnostic purposes without confirmation of the diagnosisby another medically established diagnostic product orprocedure. The performance characteristics were determinedby [facility]. Performed By: #### L 500.4050, L100.0100 #### [facility] [address] [place], [place], [address] CSF IgG SYN RAT 10.6 mg/day Abnormal -9.9 TO +3.3 [facility] Comment on above: Order Comment: Test( s) 625857-Isuawk Basic Protein, CSFresults are labeled for research purposes only by theassay's veterinary bacteriologist. The performance characteristics ofthis assay have not been established by the veterinary bacteriologist.The result should not be used for treatment or fordiagnostic purposes without confirmation of the diagnosisby another medically established diagnostic product orprocedure. The performance characteristics were determinedby [facility]. Performed By: #### L 500.4050, L100.0100 #### [facility] [address] [place], [place], [address] CSF:SER ALB IND 3 Normal 0-8 [facility] Comment on above: Order Comment: Test( s) 621210-Oisywi Basic Protein, CSFresults are labeled for research purposes only by theassay's veterinary bacteriologist. The performance characteristics ofthis assay have not been established by the veterinary bacteriologist.The result should not be used for treatment or fordiagnostic purposes without confirmation of the diagnosisby another medically established diagnostic product orprocedure. The performance characteristics were determinedby [facility]. Result Comment: Rela tionship to blood-brain barrier: Consistent with an intact barrier <9 Slight impairment 9 - 14 Moderate impairment 14 - 30 Severe impairment 30 - 100 Complete breakdown >100 Performed By: #### L 500.4050, L100.0100 #### [facility] [address] [place], [address] IGG:ALB RATIO 0.35 Abnormal 0.00-0.25 [facility] Comment on above: Order Comment: Test( s) 274837-Cleaes Basic Protein, CSFresults are labeled for research purposes only by theassay's veterinary bacteriologist. The performance characteristics ofthis assay have not been established by the veterinary bacteriologist.The result should not be used for treatment or fordiagnostic purposes without confirmation of the diagnosisby another medically established diagnostic product orprocedure. The performance characteristics were determinedby [facility]. Performed By: #### L 500.4050, L100.0100 #### [facility] [address] [place], [address] SERUM IgG 1110 mg/dL Normal 586-1602 [facility] Comment on above: Order Comment: Test( s) 955102-Fmmdhl Basic Protein, CSFresults are labeled for research purposes only by theassay's veterinary bacteriologist. The performance characteristics ofthis assay have not been established by the veterinary bacteriologist.The result should not be used for treatment or fordiagnostic purposes without confirmation of the diagnosisby another medically established diagnostic product orprocedure. The performance characteristics were determinedby [facility]. Performed By: #### L 500.4050, L100.0100 #### [facility] [address] [place], [address] Myelin Basic Protein, MBPon 08-02-2024 MBP CSF 65.6 ng/mL Abnormal 0.0-3.7 [facility] Comment on above: Order Comment: Test( s) 698549-Azenwc Basic Protein, CSF results are labeled for research purposes only by the assay's veterinary bacteriologist. The performance characteristics of this assay have not been established by the veterinary bacteriologist. The result should not be used for treatment or for diagnostic purposes without confirmation of the diagnosis by another medically established diagnostic product or procedure. The performance characteristics were determined by [facility]. Result Comment: Re sults verified by repeat testing Performed at: [facility] [address] [id number] Child Specialist: Axel Ho PhD, Phone: [phone] Performed at: [facility] [address] [id number] Child Specialist: Enrique Figueroa MD, Phone: [phone] Performed By: #### L 801.66823, L804.5000, L804.2600 #### [facility] [address] [place], [address] Oligoclonal Bands Panelon OLIG BAND COM Comment Normal . [facility] Comment on above: Order Comment: Test( s) 201453-Smuqfx Basic Protein, CSF results are labeled for research purposes only by the assay's veterinary bacteriologist. The performance characteristics of this assay have not been established by the veterinary bacteriologist. The result should not be used for treatment or for diagnostic purposes without confirmation of the diagnosis by another medically established diagnostic product or procedure. The performance characteristics were determined by [facility] [employer]. Result Comment: Ten (10) oligoclonal bands were observed in the CSF, which were not detected in the serum sample. Interpretation: Criteria for Positivity: Four (4) or more oligoclonal bands observed only in the CSF have been shown to be most consistent with MS using our method. [Serge , Ford EL, Itzel RAO, and Miguel Angel JA: Cerebrospinal Fluid Oligoclonal Bands in the Diagnosis of Multiple Sclerosis. Am J Clin Pathol 120(5):672-675, 2003]. Oligoclonal bands that are present only in the CSF have been associated with a variety of inflammatory brain diseases such as multiple sclerosis (MS), subacute encephalitis, neurosyphilis, etc. Increased IgG in the CSF is not specific for MS, but is an indication of chronic neural inflammation. Clinical correlation indicated. Approximately 2-3% of clinically confirmed MS patients show little or no evidence of oligoclonal bands in the CSF; however oligoclonal bands may develop as the disease progresses. Oligoclonal Banding testing performed using Isoelectric Focusing (IEF) and immunoblotting methodology. Performed By: #### L 801.66937, L804.5000, L804.2600 #### [facility] [address] [place], [address] DIONNE Virus CSF DNA, PCRon 06-28 JCV CSF DNA PCR Normal [facility] Comment on above: Result Comment: TEST RESULTS LIMITS DIONNE Virus DNA, PCR (CSF) Negative Negative No JCV DNA detected This test was developed and its performance characteristics determined by [facility]. It has not been cleared or approved by the Food and Drug Administration. The FDA has determined that such clearance or approval is not necessary. TESTING PERFORMED AT [facility]. ORIGINAL REPORT ON FILE IN LAB CONTAINS ADDITIONAL TEST SITE INFORMATION. Performed By: #### L 500.4100 #### [facility] [address] [place], [place], [address] VDRL Cerebrospinal Fluidon 0 07-22-2024 VDRL, CSF Non-Reactive Normal Non Daysi:<1:1 [facility] Comment on above: Performed By: #### L 506.1000, L801.5410, L3890.6005, L801.1545, L801.1541, L7000.8700, L801.1547 ####[facility] [address] [place], [place], [address] Lyme Antibodies,W Bloton LYME IgG INTERP Negative Normal . [facility] Comment on above: Result Comment: Posi tive: 5 of the following Borrelia-specific bands: 18,23,28,30,39,41,45,58, 66, and 93. Negative: No bands or banding patterns which do not meet positive criteria. Performed By: #### L 501.5200 #### [facility] [address] [place], [address] LYME IgM INTERP Negative Normal . [facility] Comment on above: Result Comment: Note : An equivocal or positive EIA result followed by a negative Line Blot result is considered NEGATIVE. An equivocal or positive EIA result followed by a positive Line Blot is considered POSITIVE by the CDC. Positive: 2 of the following bands: 23,39 or 41 Negative: No bands or banding patterns which do not meet positive criteria. Criteria for positivity are those recommended by CDC/ASTPHLD. p23=Osp C, i36=qompsmkdk Note: Sera from individuals with the following may cross react in the Lyme Line Blot assays: other spirochetal diseases (periodontal disease, leptospirosis, relapsing fever, yaws, and pinta); connective autoimmune (Rheumatoid Arthritis and Systemic Lupus Erythematosus and also individuals with Antinuclear Antibody); other infections ([place] Spotted Fever; Levy-Christopher Virus, and Cytomegalovirus). Please Note: Lyme immunoblot alone is not recommended for the diagnosis of Lyme disease. Current guidelines recommend the use of a two-tiered approach to Lyme serology testing to improve the sensitivity and specificity of testing. [facility] offers test code 920551 Lyme Disease Serology with Reflex to aid in the diagnosis of Lyme Disease. Performed By: #### L 501.5200 #### [facility] [address] [place], [address] P18 Ab Absent Normal . [facility] Comment on above: Performed By: #### L 501.5200 #### [facility] [address] [place], [address] P23 Ab Absent Normal . [facility] Comment on above: Performed By: #### L 501.5200 #### [facility] [address] [place], [address] P28 Ab Absent Normal . [facility] Comment on above: Performed By: #### L 501.5200 #### [facility] [address] [place], [address] P30 Ab Absent Normal . [facility] Comment on above: Performed By: #### L 501.5200 #### [facility] [address] [place], [address] P39 Ab Absent Normal . [facility] Comment on above: Performed By: #### L 501.5200 #### [facility] [address] [place], [address] P41 Ab Present Abnormal . [facility] Comment on above: Performed By: #### L 501.5200 #### [facility] [address] [place], [address] P45 Ab Absent Normal . [facility] Comment on above: Performed By: #### L 501.5200 #### [facility] [address] [place], [address] P58 Ab Absent Normal . [facility] Comment on above: Performed By: #### L 501.5200 #### [facility] [address] [place], [address] P66 Ab Absent Normal . [facility] Comment on above: Performed By: #### L 501.5200 #### [facility] [address] [place], [address] P93 Ab Absent Normal . [facility] Comment on above: Performed By: #### L 501.5200 #### [facility] [address] [place], [address] Lyme Screen W/Reflex WBon LYME SCREEN Ab Negative Normal Negative [facility] Comment on above: Result Comment: Lyme antibodies not detected. Reflex testing is not indicated. No laboratory evidence of infection with B. burgdorferi (Lyme disease). Negative results may occur in patients recently infected (less than or equal to 14 days) with B. burgdorferi. If recent infection is suspected, repeat testing on a new sample collected in 7 to 14 days is recommended. Performed at: [address] [id number] Child Specialist: Enrique Figueroa MD, Phone: [phone] Performed at: [address] [id number] Child Specialist: Axel Ho PhD, Phone: [phone] Performed By: #### L 500.4100 #### [facility] [address] [place], [place], [address] Miscellaneous Lab Procedure 07-20-2024 [facility] [place] [facility] Comment on above: Order Comment: [id number] ANTI-MOG/ SERUM RED TOP/ [id number] ANTI-MOG/ SERUM RED TOP/ [id number] ANTI-MOG/ SERUM RED TOP/ RT Result Comment: TEST RESULTS LIMITS MOG Antibody,Cell-based IFA A, Negative Negative TESTING PERFORMED AT [facility]. ORIGINAL REPORT ON FILE IN LAB CONTAINS ADDITIONAL TEST SITE INFORMATION. Performed By: #### L 506.1000, L801.5410, L3890.6005, L801.1545, L801.1541, L7000.8700, L801.1547 ####[facility] [address] [place], [place], [address] [facility]-2024 [facility] [place] [facility] Comment on above: Order Comment: [id number] INTERLEUKIN-2/ SERUM/RF Result Comment: TEST RESULTS LIMITS Interleukin-2, Serum <31.2 pg/mL 0.0-31.2 Comments This test was developed and its performance characteristics determined by [facility]. It has not been cleared or approved by the Food and Drug Administration. TESTING PERFORMED AT [facility]. ORIGINAL REPORT ON FILE IN LAB CONTAINS ADDITIONAL TEST SITE INFORMATION. Performed By: #### L 506.1000, L801.5410, L3890.6005, L801.1545, L801.1541, L7000.8700, L801.1547 ####[facility] [address] [place], [address] Bedside Glucoseon 07-19-2024 FINGERSTICK GLU 108 mg/dL High 74-106 [facility] Comment on above: Result Comment: MELLISA HARSHALENT OF PATIENT CARE PER NURSING PROTOCOL Performed By: #### L 501.080 #### [facility] [address] [place], [address] Performed By: #### L 501.5200 #### [facility] [address] [place], [address] Miscellaneous Lab Procedureo n 07-19-2024 [facility] [place] Normal [facility] Comment on above: Order Comment: [id number] 210 ANTI-NMO/ SERUM/ RF Result Comment: TEST RESULTS LIMITS NMO IgG Autoantibodies <1.5 U/mL 0.0-3.0 Negative: 0.0 - 3.0 Positive: >3.0 TESTING PERFORMED AT [facility]. ORIGINAL REPORT ON FILE IN LAB CONTAINS ADDITIONAL TEST SITE INFORMATION. Performed By: #### L 506.1000, L801.5410, L3890.6005, L801.1545, L801.1541, L7000.8700, L801.1547 ####[facility] [address] [place], [address] Miscellaneous Lab Procedureo n 07-18-2024 [facility] [place] Normal [facility] Comment on above: Order Comment: [id number] HTLV1/ SERUM/ RF Result Comment: TEST RESULTS LIMITS HTLV-I/II Antibodies, Qual Negative Negative TESTING PERFORMED AT [facility]. ORIGINAL REPORT ON FILE IN LAB CONTAINS ADDITIONAL TEST SITE INFORMATION. Performed By: #### L 500.4100 #### [facility] [address] [place], [address] Bedside Glucoseon 07-17-2024 FINGERSTICK GLU 147 mg/dL High 74-106 [facility] Comment on above: Result Comment: MELLISA SWAIN OF PATIENT CARE PER NURSING PROTOCOL Performed By: #### L 500.4050, L100.0100 #### [facility] [address] [place], [address] Discharge Instructionon 06-28 Discharge Instruction [facility] Medical Records Department [address] [place] [address] Instructions for Home/Discharge Instructions 07/17/24 1030 MR#: [id number] Acct: [id number] Name: WENDY DE JESUS Rep #: [id number] : 1985 39 From: Denny Bennett MD PCP: Dr. Filippo Huang DO Status:ADM IN Discharge Instructions Diet Discharge Diet: No restrictions Activity Discharge Activity: Return to Normal Activity Dressing / Incision Call your doctor if you observe: Fever of 101 or Higher, Shortness of breath, Dizziness, Fainting spells, Swelling in the ankles, Chest pain and Increased palpitations (irregular heartbeat) Follow Up Care Test Results: Test results from this visit will be discussed in further detail at your follow-up appointment, if applicable. Discharge Plan Admission Admit Date/Time: 07/13/24 12:57 Attending Provider: Denny Bennett Primary Care Provider: Filippo Huang Consulting Providers: Clifton Montgomery; Danny Arredondo; Socorro Singh; Gregoria Dominguez; Grace Queen; Jonah Monaco; Cleopatra Wells; Hai Aquino; Cuco Monaco; Mario Weldon; Allie Nava; Gordon Patel; Stacey Mustafa; Gino Guillermo; Gertrudis Hawthorne; Brijesh Waters; Jose Jim; Clayton Hudson; Madeline Kee; Christel López; Jesse Lassiter Instructions Patient Instructions: RAD RN Lumbar Puncture Having Discharge Orders/Prescriptions Prescriptions: New pantoprazole 40 mg Tablet,Delayed Release (Dr/Ec) 40 mg PO DAILY 30 Days Qty: 30 0RF prednisone 50 mg tablet 50 mg PO DAILY Qty: 25 0RF Rx Instructions: Take 25 tablets on 07/18/24 ergocalciferol (vitamin D2) [Vitamin D2] 1,250 mcg (50,000 unit) capsule 1,250 mcg PO QWEEK Qty: 7 0RF No Action multivitamin,tx-iron-mi nerals [Complete Multivitamin] tablet 1 tab PO QDAY Referrals / Follow Up: Filippo Huang DO [Primary Care Provider] - Within 1 Week Disposition Disposition (needs filled in before D/C Order can be placed): Home, Self Care 07/17/24 [facility] Denny Bennett MD CC: Gregoria Dominguez; Stacey Mustafa; Brijesh Waters; Grace Queen MD; Socorro Singh MD; Clifton Montgomery MD; Dr. Danny Arredondo MD; Dr. Jonah Monaco MD; Dr. Cleopatra Wells MD; Dr. Cuco Monaco MD; Dr. Hai Aquino MD; Dr. Mario Weldon MD; Dr. Filippo Huang DO; Dr. Gordon Patel DO; Dr. Gertrudis Hawthorne MD; Dr. Gino Guillermo MD; Dr. Jesse Lassiter MD; Dr. Jose Jim MD; Dr. Clayton Hudson MD; Dr. Madeline Kee MD; Allie Nava DO; Christel López MD Signed Normal [facility] NARESH w/ Reflex Mult Confirmon 07-16-2024 NARESH,DIRECT Negative Normal Negative [facility] Comment on above: Result Comment: Perf ormed at: CB - [facility] [address] [id number] Child Specialist: Axel Ho PhD, Phone: [phone] Performed By: #### L 500.3984 #### [facility] [address] [facility] [address] Bedside Glucoseon 07-16-2024 FINGERSTICK GLU 193 mg/dL High 74-[address] [place] [address] Comment on above: Result Comment: MELLISA GEMENT OF PATIENT CARE PER NURSING PROTOCOL Performed By: #### L 501.080 #### [facility] [address] [facility] [id number] FINGERSTICK GLU 133 mg/dL High [address] [facility] Comment on above: Result Comment: MELLISA GEMENT OF PATIENT CARE PER NURSING PROTOCOL Performed By: #### L 500.4050, L100.0100 #### [facility] [address] [place], [address] FINGERSTICK GLU 150 mg/dL High 74-106 [facility] Comment on above: Result Comment: MELLISA GEMENT OF PATIENT CARE PER NURSING PROTOCOL Performed By: #### L 501.080 #### [facility] [address] [place], [address] Cerebral Spinal Fluid Cultur michelle 07-16-2024 [facility] No growth in 72 hours. Normal [facility] Comment on above: Performed By: #### L 200.0100, L501.1600, M100.2300, L350.1000, M100.2000, L501.0400 ####[facility] [address] [place], [address] Spinal Fluid Cell Count+Diff on 07-16-2024 PATH REV May follow Normal [facility] Comment on above: Result Comment: Nega tive for malignant cells. Kyle Freeman M.D. 07/16/24 AMENDED REPORT 07/16/24 1403 PATH REV previously reported as: May follow Performed By: #### L 200.0100, L501.1600, M100.2300, L350.1000, M100.2000, L501.0400 ####[facility] [address] [place], [address] Bedside Glucoseon 07-15-2024 FINGERSTICK GLU 217 mg/dL High 74-106 [facility] Comment on above: Result Comment: MELLISA GEMENT OF PATIENT CARE PER NURSING PROTOCOL Performed By: #### L 501.5200 #### [facility] [address] [place], [address] FINGERSTICK GLU 143 mg/dL High -106 [facility] Comment on above: Result Comment: MELLISA GEMENT OF PATIENT CARE PER NURSING PROTOCOL Performed By: #### L 501.5200 #### [facility] [address] [place], [address] FINGERSTICK GLU 115 mg/dL High 74-106 [facility] Comment on above: Result Comment: MELLISA GEMENT OF PATIENT CARE PER NURSING PROTOCOL Performed By: #### L 501.080 #### [facility] [address] [place], [address] FINGERSTICK GLU 167 mg/dL High 74-106 [facility] Comment on above: Result Comment: MELLISA GEMENT OF PATIENT CARE PER NURSING PROTOCOL Performed By: #### L 501.080 ####[facility] [address] [place], [address] FINGERSTICK GLU 193 mg/dL High 74-106 [facility] Comment on above: Result Comment: MELLISA GEMENT OF PATIENT CARE PER NURSING PROTOCOL Performed By: #### L 501.080 #### [facility] [address] [place], [address] Cytology, Body Fluid / CSFon 07-15-2024 CYTOLOGY,BF/CSF SEE PATHOLOGY REPORT Normal [facility] Comment on above: Result Comment: Spec imen submitted to Anatomical Pathology Department for testing. Performed By: #### L 200.0100, L501.1600, M100.2300, L350.1000, M100.2000, L501.0400 ####[facility] [address] [place], [address] Glucose Spinal Fluidon 07-15 GLU SPINAL FLD 101 mg/dL High 40-75 [facility] Comment on above: Performed By: #### L 501.080 #### [facility] [address] [place], [address] Gram Stainon 07-15-2024 GS Centrifuged Specimen ? Culture performed on centrifuged specimen Gram Stain No organisms seen 1+ White Blood Cells Normal [facility] Comment on above: Performed By: #### L 501.080 #### [facility] [address] [place], [address] Pap Stain (control)on 2023 Pap Stain (control) --- Patient Age/Sex Location Account Attending Physician WENDY DE JESUS February [facility] [id number] Dr. Jesse Lassiter MD Specimen: [id number] Received: 07/16/24 Status: SHAHEEDClay Khurram Num: [id number] Spec Type: CYSPIN FL Subm Dr: Dr. Jesse Lassiter MD HEADER OPERATION: Not noted PRE-OP DIAGNOSIS: B/L trunk and leg numbness TISSUE SUBMITTED: Cerebrospinal fluid for cytology DIAGNOSIS CYTOLOGY Cerebrospinal fluid for cytology (cytospins): Negative for malignant cells. AM.mr 07/16/2024 CYTOLOGY STUDY Slides are reviewed. CYTOLOGY GROSS Received is 2 ml of clear fluid labeled with the patient's name and and designated per the requisition as Cerebrospinal fluid. Submitted for cytology preparation including cell block. Mr 07/16/2024 TC:5 CPT: 03657,14808 Signed (signature on file) Dr. Mainor Manley, DO 07/16/24 1337 Normal [facility] Comment on above: Performed By: #### L 500.4050, L100.0100 #### [facility] [address] [place], [place], [address] Partial Thromboplast Timeon 07-15-2024 aPTT Coag (Bld) [Time] 23.3 s Low 24.1-36.2 [facility] Comment on above: Performed By: #### L 501.5200 #### [facility] [address] [place], [place], [address] Procedure Reporton 4 Procedure Report [facility] Medical Records Department [address] [place] [address] Procedure Report 07/15/24 1519 MR#: [id number] Acct: [id number] Name: WENDY DE JESUS Rep #: [id number] : 1985 39 From: Barbara Villalobos CHANDELIER MAKER-C PCP: Dr. Filippo Huang, DO Status:ADM IN Location: [place] [address] Procedure Report Date of Procedure: 07/15/24 Assessment Plan Assessment/Plan (1) Paresthesias: PLAN: PROCEDURE: Fluoroscopic guided Lumbar Puncture. ORDERING PROVIDER: Dr. Lassiter CLINICAL INDICATION: Female, 39 years old. Paresthesias with abnormal MRI. PROVIDER: CHIQUITA Chirinos MEDICATIONS: 2% lidocaine administered subcutaneously for local anesthesia ACCESS SITE: Lower posterior back. NEEDLE: 22-gauge spinal needle. SPECIMEN: Approximately 13 mL clear colored CSF fluid. COMPLICATIONS: None immediate. FLUOROSCOPY TIME (if supplied): 2 minutes/42 seconds. 21.5 mGy The risks, benefits, and alternatives to the procedure were explained to the patient. The specific risks of bleeding, infection, and neurovascular injury were detailed and accepted. Witnessed informed consent was obtained. The patient was placed on the fluoroscopic table in the prone position. The level for needle entry was determined and marked. The overlying skin was cleaned with betadine and draped in the usual sterile fashion. 2% lidocaine was administered subcutaneously for local anesthesia. Under fluoroscopic guidance a 22-gauge spinal needle was advanced. The thecal sac was entered at the L 3-L 4 vertebral level. The inner stylet was removed. There was spontaneous flow of clear-colored CSF fluid. The patient was placed in a reverse Trendelenburg position. Approximately 13 mL of cerebrospinal fluid was collected using gravity. The specimen was collected and submitted to the laboratory for further evaluation. The needle was withdrawn. Hemostasis was achieved and a sterile dressing placed. The patient tolerated the procedure well without any immediate complications. The patient was placed supine for nursing observation in the holding bay. IMPRESSION: Successful fluoroscopic-guided lumbar puncture. Procedures Radiology Radiology Xray Procedures: 61582 Lumbar Puncture Dx Multi Select Codes Radiology Rad Xray Procedures: [id number] Fluoroscopic guidance for needle placement 07/15/24 1526 Cosigner Signature (if applicable): CC: RIMA Villalobos; Dr. Filippo Huang DO Signed Normal [facility] Protein Spinal Fluidon 07-15 PROTEIN CSF 31.0 mg/dL Normal 15.0-45.0 [facility] Comment on above: Performed By: #### L 501.080 #### [facility] [place], [address] Prothrombin Time w/INRon INR Coag (PPP) [Relative time] 1.1 {INR} Normal [facility] Comment on above: Performed By: #### L 501.5200 #### [facility] [address] [place], [address] PT Coag (PPP) [Time] 14.4 s Normal 11.7-14.9 [facility] Comment on above: Performed By: #### L 501.5200 #### [facility] [address] [place], [address] Basic Metabolic Profile (BMP )on 07-14-2024 BUN/CRE 18.0 RATIO Normal 10-20 [facility] Comment on above: Performed By: #### L 500.4100 #### [facility] [address] [place], [address] CA,Total 9.4 mg/dL Normal 8.5-10.1 [facility] Comment on above: Performed By: #### L 500.4100 #### [facility] [address] [place], [address] Chloride [Moles/Vol] 108 mmol/L High 98-107 [facility] Comment on above: Performed By: #### L 500.4100 #### [facility] [address] [place], [address] CO2 [Moles/Vol] 26.0 mmol/L Normal 21.0-32.0 [facility] Comment on above: Performed By: #### L 500.4100 #### [facility] [address] [place], [address] Creatinine [Mass/Vol] 0.72 mg/dL Normal 0.55-1.02 [facility] Comment on above: Result Comment: The validity of the calculated GFR GFRAA in patients over 70 years has not been determined. Clinical correlation is essential. Performed By: #### L 500.4100 #### [facility] [address] [place], [address] ECRCL 90.59 ml/min Normal [facility] Comment on above: Performed By: #### L 500.4100 #### [facility] [address] [place], [address] EST GFR - AA 115 mL/min Normal >60 [facility] Comment on above: Result Comment: Afri can Albanian GFR Calc Performed By: #### L 500.4100 #### [facility] [address] [place], [address] GAP 4 Low 5-15 [facility] Comment on above: Performed By: #### L 500.4100 #### [facility] [address] [place], [address] GFR/1.73 sq M.predicted among non-blacks MDRD (S/P/Bld) [Vol rate/Area] 95 mL/min/{1.73_m2} Normal >60 [facility] Comment on above: Result Comment: Non- GFR Calc Performed By: #### L 500.4100 #### [facility] [address] [place], [address] Glucose [Mass/Vol] 88 mg/dL Normal 74-106 [facility] Comment on above: Performed By: #### L 500.4100 #### [facility] [address] [place], [address] Potassium [Moles/Vol] 4.2 mmol/L Normal 3.5-5.1 [facility] Comment on above: Performed By: #### L 500.4100 #### [facility] [address] [place], [address] Sodium [Moles/Vol] 138 mmol/L Normal 136-145 [facility] Comment on above: Performed By: #### L 500.4100 #### [facility] [address] [place], [address] Urea nitrogen [Mass/Vol] 13 mg/dL Normal 7-18 [facility] Comment on above: Performed By: #### L 500.4100 #### [facility] [address] [place], [address] Bedside Glucoseon 07-14-2024 FINGERSTICK GLU 127 mg/dL High 74-106 [facility] Comment on above: Result Comment: MELLISA SWAIN OF PATIENT CARE PER NURSING PROTOCOL Performed By: #### L 501.5200 #### [facility] [address] [place], [address] Folates, (Folic Acid)on 06-27 FOLATES 17.50 ng/mL Normal 3.1-55.4 [facility] Comment on above: Performed By: #### L 500.4100 #### [facility] [address] [place], [address] HIV - WCHon 07-14-2024 HIV Non-Reactive Normal Nonreactive [facility] Comment on above: Performed By: #### L 506.1000, L801.5410, L3890.6005, L801.1545, L801.1541, L7000.8700, L801.1547 ####[facility] [address] [place], [address] Liver Profileon 07-14-2024 Albumin [Mass/Vol] 3.9 g/dL Normal 3.2-5.0 [facility] Comment on above: Performed By: #### L 500.4100 #### [facility] [address] [place], [address] ALK P 49 U/L Normal 45-117 [facility] Comment on above: Performed By: #### L 500.2470 #### [facility] [address] [place], [address] ALT [Catalytic activity/Vol] 41 U/L Normal 13-56 [facility] Comment on above: Performed By: #### L 500.4100 #### [facility] [address] [place], [address] AST [Catalytic activity/Vol] 21 U/L Normal 15-37 [facility] Comment on above: Performed By: #### L 500.4100 #### [facility] [address] [place], [address] Bilirubin [Mass/Vol] 0.90 mg/dL Normal 0.20-1.00 [facility] Comment on above: Result Comment: For patients on eltrombopag therapy, use of Dimension Aurora TBIL is not recommended. Performed By: #### L 500.4100 #### [facility] [address] [place], [address] Bilirubin.direct [Mass/Vol] 0.27 mg/dL Normal 0.00-0.30 [facility] Comment on above: Performed By: #### L 500.4100 #### [facility] [address] [place], [address] Globulin (S) [Mass/Vol] 3.5 g/dL Normal 2.2-4.2 [facility] Comment on above: Performed By: #### L 500.4100 #### [facility] [address] [place], [address] T PROT 7.4 g/dL Normal 6.4-8.2 [facility] Comment on above: Performed By: #### L 500.4100 #### [facility] [address] [place], [address] MR/CON.PCM.NEon 07-14-2024 MR/CON.PCM.NE [facility] Medical Records Department [address] [place] [address] Consultation - Neurology 07/14/24 1252 MR#: [id number] Acct: [id number] Name: WENDY DE JESUS Rep #: [id number] : 1985 39 From: Grace Queen MD PCP: Dr. Filippo Huang, DO Status:ADM IN Location: [place] [address] Assessment and Plan: Neuro Assessment/Plan WENDY DE JESUS is a 39 F with a past medical history of CIS, being evaluated by Teleneurology for possible MS flare. Pt on history has had at least 3 distinct clinical episodes, each of these were associated it seems with imaging findings. The first event sounded like a FILEMON and there is a lesion in her brainstem. The second lesion affected her R arm with a corresponding L periventricular lesion with enhancement. This current event sounds like there is involvement of the cord (thoracic and cervical) and there is a new lesion in the Cervical spine with enhancement. Clinically she likely has a thoracic lesion but none seen on imaging (although this may be an effect of the imaging). In addition there is a new periventricular lesion in the R temporal horn with no enhancement. Taken together, pt meets clinical criteria for MS. With the edema in the cervical cord however, would consider evaluating for MS mimics as well including MOGAD and NMO. Plan: - Please initiate methylprednisolone for pt's flare - recommend starting 1000mg IVMP for 5 days. If pt glucose and BP stable for 3 days the last 2 days can be an oral regiment completed outpatient - Please monitor BP and glucose on IVMP and start GI PPI. - please obtain LP and send the following labs: cell count, protein, glucose, cytology, flow cytometry, oligoclonal bands, myelin basic protein, DIONNE virus (may be send out), VDRL - please obtain the following serum labs: anti MOG (may be sendout), anti NMO (may be sendout), Vitamin D, ASA, lyme antibody, IL2, IgG infex, NARESH, HIV, HTLV1, Vitamin B12, LFTs, TSH For followup, recommend Neurology followup with MS specialist in 1-3 months. Pt has request followup in [place]. Recommend getting assistance from Case Management to see if patient can have an appointment set up prior to leaving. Patient can followup with [facility] - will place a referral in our system for followup within the next month in case patient is unable to find a provider in [place]. Will continue to follow patient daily and closely. I personally attended this patient and spent a total time of 75 minutes evaluating this patient including clinical assessment, review of chart, medical history imaging, and determining appropriate treatment and workup. HPI Consult Data Date of Consult: 07/14/24 HPI Narrative HPI Narrative: WENDY DE JESUS, is a 39 F who presents with concern of new MS flare WENDY DE JESUS, is a 39 F came to ED with multiple symptoms for about 1 week. She describes as numbness around her mid abdomen front and back which is localized with some twitching movements of right lower extremity intermittently. It is not periodic or in a pattern. 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 For last few days in the past week she had intermittent urinary incontinence felt like urge incontinence with leaking of urine. Denies burning micturition. Denies fever or flulike symptoms. Her medical history starts from 2011 when she had diplopia/crossed eye and had MRI of brain and was some lesion was found. That lesion was followed for next several years without any diagnosis because there were small. In about 2018, she underwent divorce and had distress and felt like her right upper extremity stiffness or not in good control and thought it is from the stress. She is not yet diagnosed with a neurological condition including MS. In ED, the ER physician talked to [facility] neurologist and advised MRI brain, C-spine and thoracic spine with and without contrast that have been ordered. Patient is further admitted Patient presents with multiple symptoms that started 1 week ago. She is off balance when she walks. Numbness across to her mid abdomen wrapping around to her back. Stiffness in both of her hands without pain, but making it difficult to write and type for work. Occasional urinary incontinence. Weakness in her right foot yesterday, occasionally catching the front of her shoe on the ground when she would walk. She denies numbness tingling anywhere other than her trunk as above. No other weakness. She denies any vision changes including field of vision and/or blurriness, diplopia. No headaches. No back pain. No fevers. No saddle anesthesia. No chest or abdominal discomfort, shortness of breath, vomiting or diarrhea. No recent injury to her head or anywhere else. Neurologic History: The above history was confirmed. In 2018 had a followup visit and may have had some arm (more content not included)... Normal [facility] Thyroid Stim Hormone (TSH)on 07-14-2024 TSH 2.130 uIU/mL Normal 0.358-3.740 [facility] Comment on above: Performed By: #### L 500.4100 #### [facility] [address] [place], [address] Urine Cultureon 07-14-2024 URC Mixed Gram Positive Organisms [place] Count 11,000-25,000 MIXC Mixed contaminants. Submit a new specimen if indicated. Normal [facility] Comment on above: Performed By: #### L 500.4050, L100.0100 #### [facility] [address] [place], [address] Vitamin B12on 07-14-2024 Cobalamin (Vitamin B12) [Mass/Vol] 683 pg/mL Normal 211-911 [facility] Comment on above: Performed By: #### L 500.4100 #### [facility] [address] [place], [place], [address] Vitamin D,25 Hydroxyon 07-14 Vitamin D 25-OH 26.2 ng/mL Normal [facility] Comment on above: Result Comment: Valrey min D 25(OH) Status Range Deficiency <20 ng/mL (50nmol/L) Insufficiency 20 - 30 ng/mL (50 - 75 nmol/L) Sufficiency 30 - 100 ng/mL (75 - 250 nmol/L) Toxicity >100 ng/mL (>250 nmol/L) Performed By: #### L 506.1000, L801.5410, L3890.6005, L801.1545, L801.1541, L7000.8700, L801.1547 ####[facility] [address] [place], [address] Brain W/WO Contraston 2023 Brain W/WO Contrast [facility] Imaging Services [address] [place] [address] Brain W/WO Contrast MR#: [id number] Acct: [id number] Name: WENDY DE JESUS Rep #: [id number] : 1985 F 39 From: Polo sagastume MD PCP: Dr. Filippo Huang, DO Status: ADM IN Study: Brain W/WO Contrast Date of Exam: 07/13/24 Exam# [id number] Ordering [place]: [place] [id number] EXAM: MR HEAD WITHOUT AND WITH INTRAVENOUS CONTRAST CLINICAL INDICATION: Suspected stroke TECHNIQUE: Multiplanar and multisequence MR images of the brain were obtained without and with intravenous contrast. CONTRAST: IV 13ml clariscan COMPARISON: Nonenhanced cranial CT of 07/13/2024. Cranial MR of 01/12/2019. FINDINGS: BRAIN AND EXTRA-AXIAL SPACES: The T2 hyperintensity lesion within the left temporal deep white matter is again noted, and has decreased in size, now measuring 3.5 mm in diameter on the axial images, as compared with 7 mm on the prior study. There is no abnormal enhancement in this area. An elongated focus of T2 hyperintensity has developed within the subependymal parenchyma adjacent to the left occipital horn, with this white matter lesion radiating anteriorly into the left temporal deep white matter where it abuts the above-noted chronic lesion, as noted on parasagittal images 18-20 of series 4. This lesion also radiates superiorly, abutting the trigone of the left lateral ventricle, which is new. This lesion shows no abnormal enhancement. The T2 hyperintense lesion adjacent to the trigone of the right lateral ventricle is again noted, stable in size, and without abnormal enhancement. There has been interval development of an approximately 12 mm ovoid focus of T2 hyperintensity within the right temporal lobe, abutting the right temporal horn. There is no abnormal enhancement in this region. Diffusion-weighted images show no restricted diffusion to indicate acute infarction. Ventricles remain normal in size and shape. No intra- or extra-axial hemorrhage. No intracranial mass or mass effect. Basal cisterns are patent. No white matter lesions are aligned perpendicular to the lateral ventricular bodies. No signal abnormalities are noted within the basal ganglia or periaqueductal parenchyma. No signal abnormalities are noted within the brainstem or cerebellum. SELLA: Unremarkable. Normal sella turcica, pituitary gland, infundibular stalk, optic chiasm and hypothalamus. AUDITORY SYSTEM: The seventh/8th cranial nerve complexes are symmetric. BONES/JOINTS: T2-weighted images show hyperintensity and expansion of the cervical cord as discussed on the current cervical MR report. No discrete lytic or blastic abnormalities. SINUSES: Unremarkable as visualized. Clear. MASTOID AIR CELLS: Unremarkable as visualized. Clear. ORBITS: Unremarkable as visualized. Both globes, extraocular muscles, optic nerves and retrobulbar fat appear unremarkable. VASCULATURE: Unremarkable as visualized. Normal flow voids in the major intracranial circulation. MRI/Brain W/WO Contrast IMPRESSION: No acute infarction identified. Findings of demyelinating disease again demonstrated; the left temporal deep white matter lesion has decreased in size, and there is a stable lesion adjacent to the trigone of the right lateral ventricle. There is a new T2 hyperintense lesion adjacent to the left occipital horn, radiating superiorly adjacent to the trigone of the left lateral ventricle, and there is a new T2 hyperintense lesion within the right temporal lobe. None of these lesions demonstrate abnormal enhancement. Electronically Signed: Polo Mcdonough MD at 6:08 EDT , CC: Dr. Filippo Huang DO; Dr. Jesse Lassiter MD Medical Office Representative: Signed Normal [facility] Brain/Head without Contrasto n 07-13-2024 Brain/Head without Contrast [facility] Imaging Services [address] [place] [address] Brain/Head without Contrast MR#: [id number] Acct: [id number] Name: WENDY DE JESUS Rep #: [id number] : 1985 F 39 From: Derrick schumacher MD PCP: Dr. Filippo Huang DO Status: REG ER Study: Brain/Head without Contrast Date of Exam: 06/27 05/19 Exam# [id number] Ordering [place]: [place] [id number] STUDY: CT BRAIN WITHOUT CONTRAST REASON FOR EXAM: Female, 39 years old. Dysequilibrium, paresthesias RADIATION DOSAGE (If Supplied By Facility): CTDIvol = ( 44.99 ) mGy, DLP = ( 779.24 ) mGycm TECHNIQUE: Transaxial CT imaging of the brain was performed without administration of intravenous contrast material. Individualized dose optimization techniques were used for this CT. COMPARISON: No relevant priors. FINDINGS: Normal soft tissue structures. Normal calvarium. Normal size ventricles and extra-axial spaces for the patient''s age. Normal white matter tracts of the cerebral hemispheres. Normal basal ganglia and thalami. Normal brainstem. Normal cerebellum. There is no intracranial hemorrhage. There are no findings of an acute ischemic infarction. Normal visualized paranasal sinuses. CT/Brain/Head without Contrast IMPRESSION: Normal unenhanced CT scan of the brain. Electronically Signed: Derrick Cam MD at 8:47 EDT Reading Location ID and State: [address] [place] [address] , Service support , CC: Dr. Michael Waterman MD; Dr. Filippo Huang DO Medical Office Representative: Signed Normal [facility] CBC W/Diff, Automatedon 06-27 Absolute Lymph 1.93 X10 3/uL Normal 0.83-4.51 [facility] Comment on above: Performed By: #### L 500.4050, L100.0100 #### [facility] [address] [place], [place], [id number] Absolute Neut 7.5 X10 3/uL Normal 2.0-7.7 [facility] Comment on above: Performed By: #### L 500.4050, L100.0100 #### [facility] [address] [place], [address] Basophils/100 WBC (Bld) 0.8 % Normal 0-1 [facility] Comment on above: Performed By: #### L 500.4050, L100.0100 #### [facility] [address] [place], [address] Eosinophils/100 WBC (Bld) 0.9 % Normal 0-5 [facility] Comment on above: Performed By: #### L 500.4050, L100.0100 #### [facility] [address] [place], [address] Erythrocyte distribution width (RBC) [Ratio] 11.7 % Normal 11.6-14.6 [facility] Comment on above: Performed By: #### L 500.4050, L100.0100 #### [facility] [address] [place], [address] Hematocrit (Bld) [Volume fraction] 43.0 % Normal 37-47 [facility] Comment on above: Performed By: #### L 500.4050, L100.0100 #### [facility] [address] [place], [address] Hemoglobin (Bld) [Mass/Vol] 14.4 g/dL Normal 12.0-15.0 [facility] Comment on above: Performed By: #### L 500.4050, L100.0100 #### [facility] [address] [place], [address] IG% 0.600 Normal 0.0-0.9 [facility] Comment on above: Result Comment: IG% - Immature Granulocytes (promyelocytes, myelocytes and metamyelocytes) > 1% indicates that a LEFT SHIFT is Present. Performed By: #### L 500.4050, L100.0100 #### [facility] [address] [place], [address] Lymphocytes/100 WBC (Bld) 18.1 % Low 19-41 [facility] Comment on above: Performed By: #### L 500.4050, L100.0100 #### [facility] [address] [place], [address] MCH (RBC) [Entitic mass] 30.7 pg Normal 27.0-32.0 [facility] Comment on above: Performed By: #### L 500.4050, L100.0100 #### [facility] [address] [place], [address] MCHC (RBC) [Mass/Vol] 33.5 g/dL Normal 32-36 [facility] Comment on above: Performed By: #### L 500.4050, L100.0100 #### [facility] [address] [place], [address] MCV (RBC) [Entitic vol] 91.7 fL Normal 81-99 [facility] Comment on above: Performed By: #### L 500.4050, L100.0100 #### [facility] [address] [place], [address] Monocytes/100 WBC (Bld) 9.4 % Normal 0-10 [facility] Comment on above: Performed By: #### L 500.4050, L100.0100 #### [facility] [address] [place], [address] Neutrophils/100 WBC (Bld) 70.2 % High 47-70 [facility] Comment on above: Performed By: #### L 500.4050, L100.0100 #### [facility] [address] [place], [address] Nucleated RBC (Bld) [#/Vol] 0 10*3/uL Normal 0-5 [facility] Comment on above: Performed By: #### L 500.4050, L100.0100 #### [facility] [address] [place], [address] Platelet mean volume (Bld) [Entitic vol] 9.5 fL Normal 6.2-12.0 [facility] Comment on above: Performed By: #### L 500.4050, L100.0100 #### [facility] [address] [place], [address] Platelets (Bld) [#/Vol] 437 10*3/uL Normal 150-450 [facility] Comment on above: Performed By: #### L 500.4050, L100.0100 #### [facility] [address] [place], [address] RBC (Bld) [#/Vol] 4.69 10*6/uL Normal 4.2-5.4 [facility] Comment on above: Performed By: #### L 500.4050, L100.0100 #### [facility] [address] [place], [address] RDW SD 39.6 fl Normal 35.1-43.9 [facility] Comment on above: Performed By: #### L 500.4050, L100.0100 #### [facility] [address] [place], [address] WBC (Bld) [#/Vol] 10.7 10*3/uL Normal 4.4-11.0 [facility] Comment on above: Performed By: #### L 500.4050, L100.0100 #### [facility] [address] [place], [address] Comprehensive Metabolic Prof ilon 07-13-2024 Albumin [Mass/Vol] 4.0 g/dL Normal 3.2-5.0 [facility] Comment on above: Performed By: #### L 500.4050, L100.0100 #### [facility] [address] [place], [address] Albumin/Globulin [Mass ratio] 1.1 {ratio} Normal 0.9-2.4 [facility] Comment on above: Performed By: #### L 500.4050, L100.0100 #### [facility] [address] [place], [address] ALK P 52 U/L Normal 45-117 [facility] Comment on above: Performed By: #### L 500.4050, L100.0100 #### [facility] [address] [place], [address] ALT [Catalytic activity/Vol] 29 U/L Normal 13-56 [facility] Comment on above: Performed By: #### L 500.4050, L100.0100 #### [facility] [address] [place], [address] AST [Catalytic activity/Vol] 20 U/L Normal 15-37 [facility] Comment on above: Performed By: #### L 500.4050, L100.0100 #### [facility] [address] [place], [address] Bilirubin [Mass/Vol] 1.10 mg/dL High 0.20-1.00 [facility] Comment on above: Result Comment: For patients on eltrombopag therapy, use of Dimension Aurora TBIL is not recommended. Performed By: #### L 500.4050, L100.0100 #### [facility] [address] [place], [address] BUN/CRE 16.7 RATIO Normal 10-20 [facility] Comment on above: Performed By: #### L 500.4050, L100.0100 #### [facility] [address] [place], [address] CA,Total 9.5 mg/dL Normal 8.5-10.1 [facility] Comment on above: Performed By: #### L 500.4050, L100.0100 #### [facility] [address] [place], [address] Chloride [Moles/Vol] 107 mmol/L Normal 98-107 [facility] Comment on above: Performed By: #### L 500.4050, L100.0100 #### [facility] [address] [place], [address] CO2 [Moles/Vol] 21.0 mmol/L Normal 21.0-32.0 [facility] Comment on above: Performed By: #### L 500.4050, L100.0100 #### [facility] [address] [place], [address] Creatinine [Mass/Vol] 0.78 mg/dL Normal 0.55-1.02 [facility] Comment on above: Result Comment: The validity of the calculated GFR GFRAA in patients over 70 years has not been determined. Clinical correlation is essential. Performed By: #### L 500.4050, L100.0100 #### [facility] [address] [place], [address] ECRCL 90.53 ml/min Normal [facility] Comment on above: Performed By: #### L 500.4050, L100.0100 #### [facility] [address] [place], [address] EST GFR - AA 106 mL/min Normal >60 [facility] Comment on above: Result Comment: Afri can Albanian GFR Calc Performed By: #### L 500.4050, L100.0100 #### [facility] [address] [place], [address] GAP 12 Normal 5-15 [facility] Comment on above: Performed By: #### L 500.4050, L100.0100 #### [facility] [address] [place], [address] GFR/1.73 sq M.predicted among non-blacks MDRD (S/P/Bld) [Vol rate/Area] 88 mL/min/{1.73_m2} Normal >60 [facility] Comment on above: Result Comment: Non- GFR Calc Performed By: #### L 500.4050, L100.0100 #### [facility] [address] [place], [address] Globulin (S) [Mass/Vol] 3.6 g/dL Normal 2.2-4.2 [facility] Comment on above: Performed By: #### L 500.4050, L100.0100 #### [facility] [address] [place], [address] Glucose [Mass/Vol] 79 mg/dL Normal 74-106 [facility] Comment on above: Performed By: #### L 500.4050, L100.0100 #### [facility] [address] [place], [address] Potassium [Moles/Vol] 4.0 mmol/L Normal 3.5-5.1 [facility] Comment on above: Performed By: #### L 500.4050, L100.0100 #### [facility] [address] [place], [address] Sodium [Moles/Vol] 140 mmol/L Normal 136-145 [facility] Comment on above: Performed By: #### L 500.4050, L100.0100 #### [facility] [address] [place], [address] T PROT 7.6 g/dL Normal 6.4-8.2 [facility] Comment on above: Performed By: #### L 500.4050, L100.0100 #### [facility] [address] [place], [address] Urea nitrogen [Mass/Vol] 13 mg/dL Normal 7-18 [facility] Comment on above: Performed By: #### L 500.4050, L100.0100 #### [facility] [address] [place], [address] Emergency Department Summary on 07-13-2024 Emergency Department Summary [facility] Medical Records Department [address] [place] [address] Emergency Department Summary 07/13/24 MR#: [id number] Acct: [id number] Name: WENDY DE JESUS Rep #: [id number] : 1985 39 From: Michael Waterman MD PCP: Dr. Filippo Huang, DO Status:REG ER Location: ED HPI History of Present Illness Chief Complaint: Numb/Ting Informant: patient and parent Narrative Narrative: Patient presents with multiple symptoms that started 1 week ago. She is off balance when she walks. Numbness across to her mid abdomen wrapping around to her back. Stiffness in both of her hands without pain, but making it difficult to write and type for work. Occasional urinary incontinence. Weakness in her right foot yesterday, occasionally catching the front of her shoe on the ground when she would walk. She denies numbness tingling anywhere other than her trunk as above. No other weakness. She denies any vision changes including field of vision and/or blurriness, diplopia. No headaches. No back pain. No fevers. No saddle anesthesia. No chest or abdominal discomfort, shortness of breath, vomiting or diarrhea. No recent injury to her head or anywhere else. She states she had some numbness in the past and subsequently had an MRI with an abnormal lesion, that was suspicious for MS but she does not have the diagnosis because it has not happened again until now. However, this is all very different than it was before. PFSH PFS Home Medications ???Medication ???Instructions ???Recorded ???Last Taken ???Type multivitamin,tx-iron-mi nerals 1 tab PO QDAY 01/29/18 Unknown History (Complete Multivitamin tablet) Allergy/AdvReac Type Severity Reaction Status Date / Time No Known Allergies Allergy Unverified 01/29/18 10:55 Surgical History History of cholecystectomy Social History Smoking Status: Never smoker alcohol intake: current alcohol intake frequency: a few times a month Alcohol type: beer and wine ROS ROS ED Constitutional Constitutional ED: Denies chills or fever(s) Eyes Eyes: Denies change in vision or diplopia ENT ENT ED: Denies rhinorrhea or sore throat Cardiovascular Cardiovascular: Denies chest pain or palpitations Respiratory/Chest Respiratory/Chest: Denies cough or dyspnea Gastrointestinal Gastrointestinal: Denies abdominal pain, diarrhea, nausea or vomiting Genitourinary Genitourinary ED: Reports urinary incontinence; Denies dysuria or hematuria Musculoskeletal Musculoskeletal: Denies back pain or neck pain Integumentary Denies abscess or rash Neurologic Neurologic: Reports disequilibrium and paresthesias; Denies abnormal speech, headache(s), loss of vision, vertigo or weakness Psychiatric Psychiatric: Reports other Details: 1 year ago before the onset of this, I was supposed to get and I called it off. ; Denies suicidal thoughts EXAM Physical Exam Const Vital Signs: 07/13/24 07:19 07/13/24 09:28 07/13/24 11:32 Temperature 97.3 F L 97.4 F L 98.1 F Temperature Source Temporal Oral Oral Pulse Rate 100 88 91 Respiratory Rate 16 12 11 L Blood Pressure 111/74 131/71 H 112/72 Blood Pressure Mean 86 91 85 Pulse Ox 100 100 99 Oxygen Delivery Method Room Air Room Air Room Air Positive well nourished and well developed General Appearance ED: well developed and NAD HEENT Reports moist mucous membranes normocephalic and atraumatic Eyes PERRL and EOMs intact bilaterally Neck full ROM and supple Resp normal respiratory effort and clear to auscultation bilaterally Cardio regular rate, regular rhythm and no murmurs GI non-tender and non-distended Auscultation: normoactive bowel sounds Palpation: soft Back/Spine no CVA tenderness General Back: other FROM Extremity normal to inspection Extremity Narrative: Patient appears to have stiffness in her fingers, but there are no grossly swollen or erythematous joints. General Extremety ED: Negative for edema, pulses abnormal or tenderness General Extremity: Negative for edema or pulses abnormal Neuro oriented x3, CN's II-XII intact bilaterally and no focal motor deficits Neuro Narrative: Decree sensation to sharp provocation left more than right in dermatomal distribution just above the umbilicus, approximately T9. In the back, patient has a more broad area of decreased sharp sensation on the left, but sharp sensation is all normal throughout the right. Normal sensory both hands. Sensorium / Orientation: awake and alert Speech: speech normal Gait (Neuro): other nml except mildly ataxic, see below Motor Exam: strength 5/5 throughout Deep Tendon Reflexes: Rt Triceps (C7): 1+, Lt Triceps (C7): 1+, Rt Biceps (C5, (more content not included)... Normal [facility] H AND P Exam - [facility] 07-13-2024 H&P Exam - Hospitalist [facility] Medical Records Department [address] [place] [address] H P Exam - Hospitalist 07/13/24 1304 MR#: [id number] Acct: [id number] Name: WENDY DE JESUS Rep #: [id number] : 1985 39 From: Jesse Lassiter MD PCP: Dr. Filippo Huang, DO Status:ADM IN Location: [facility] [id number] HPI - General General Date of Admission: 07/13/24 Date of Service: 07/13/24 Chief Complaint: Numbness intermittently around her mid abdomen for last week. HPI Narrative WENDY DE JESUS, is a 39 F came to ED with multiple symptoms for about 1 week. She describes as numbness around her mid abdomen front and back which is localized with some twitching movements of right lower extremity intermittently. It is not periodic or in a pattern. 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 For last few days in the past week she had intermittent urinary incontinence felt like urge incontinence with leaking of urine. Denies burning micturition. Denies fever or flulike symptoms. Her medical history starts from 2011 when she had diplopia/crossed eye and had MRI of brain and was some lesion was found. That lesion was followed for next several years without any diagnosis because there were small. In about 2018, she underwent divorce and had distress and felt like her right upper extremity stiffness or not in good control and thought it is from the stress. She is not yet diagnosed with a neurological condition including MS. In ED, the ER physician talked to [facility] neurologist and advised MRI brain, C-spine and thoracic spine with and without contrast that have been ordered. Patient is further admitted Patient's symptom complex does not relate to acute or subacute or strokelike symptoms as her symptoms are like about 1 week. In ED, stroke alert was not indicated and therefore not called. She denies smoking history. Drinks beer and wine few times in a month. Denies substance use. PFSH Home Medications ???Medication ???Instructions ???Recorded ???Last Taken ???Type multivitamin,tx-iron-mi nerals 1 tab PO QDAY 01/29/18 Unknown History (Complete Multivitamin tablet) Allergy/AdvReac Type Severity Reaction Status Date / Time No Known Allergies Allergy Unverified 01/29/18 10:55 Surgical History History of cholecystectomy Social History Smoking Status: Never smoker alcohol intake: current alcohol intake frequency: a few times a month Alcohol type: beer and wine ROS ROS Narrative Constitutional: Denies fatigue and weakness. No fever. HEENT: Reports systems reviewed and no addt'l complaints, except as documented Respiratory/Chest: No acute shortness of breath or respiratory distress or wheezing. CVS: Denies chronic heart disease. No chest pain or shortness of breath. Gastrointestinal: Denies coffee ground emesis, hematemesis or vomiting Genitourinary: Denies burning urination. Rest as described in HPI Musculoskeletal: Denies acute joint pain or limited range of motion. No acute injury Neurologic: Denies seizure-like symptoms. As described in HPI skin: No ulcer. No rash Endocrinology: Reports systems reviewed and no addt'l complaints, except as documented Hematologic/Lymphatic: Reports systems reviewed and no addt'l complaints, except as documented Rest 14 ROS are negative except as mentioned in HPI Vital Signs Vital Signs Vital Signs: 07/13/24 07:19 07/13/24 09:28 07/13/24 11:32 Temperature 97.3 F L 97.4 F L 98.1 F Temperature Source Temporal Oral Oral Pulse Rate 100 88 91 Respiratory Rate 16 12 11 L Blood Pressure 111/74 131/71 H 112/72 Blood Pressure Mean 86 91 85 Pulse Ox 100 100 99 Oxygen Delivery Method Room Air Room Air Room Air Weight Weight: 145 lb 8.081 oz Body Mass Index (BMI) 25.0 Physical Exam Narrative General: Alert, Oriented x3, Cooperative HEENT: Atraumatic, PERRLA, EOMI, Normocephalic Oral: Oral mucosa moist. No Gingival or Mucosal Lesions/ Ulcerations Neck: Supple, No JVD, Negative Carotid Bruits Chest wall/Lungs: Air entry diminished in bilateral lung bases. No crepitation/rhonchi Cardiovascular: Regular rate, Regular Rhythm, Normal S1, Normal S2, No M/G/R Abdomen: Bowel Sounds Present, Soft, Non Tender, Non-Distended : No dysuria. No renal angle tenderness. No suprapubic tenderness. Extremities: No edema, Capillary Refill Less than 3 Seconds Skin: No rashes, No breakdown Musculoskeletal: No Tenderness to Palpation of Joints or Extremities. ROM full and intact. Neurological: Cranial nerves II-XII grossly intact, DTR 2+/4. Muscle strength 5/5 at major joints. No acute focal neurological deficit. Psych/Mental Status: Normal Affect, Appropriate. Results (more content not included)... Normal [facility] Lipid Profileon 07-13-2024 Cholesterol [Mass/Vol] 127 mg/dL Normal 200 [facility] Comment on above: Result Comment: <200 mg/dL Desirable 200-240 mg/dL Borderline >240 mg/dL High Risk Performed By: #### L 500.4100 #### [facility] [address] [place], [address] Cholesterol in HDL [Mass/Vol] 57 mg/dL Normal [facility] Comment on above: Result Comment: The drugs N-Acetylcysteine and Metamizole may falsely depress this assay. Reference Range HDL <40 mg/dL Low HDL Cholesterol HDL >or= 60 mg/dL High HDL Cholesterol Performed By: #### L 500.4100 #### [facility] [address] [place], [address] Cholesterol in LDL [Mass/Vol] 54 mg/dL Normal 0-130 [facility] Comment on above: Performed By: #### L 500.4100 #### [facility] [address] [place], [address] Cholesterol in VLDL [Mass/Vol] 16 mg/dL Normal 5-40 [facility] Comment on above: Performed By: #### L 500.4100 #### [facility] [address] [place], [address] Triglyceride [Mass/Vol] 81 mg/dL Normal [facility] Comment on above: Result Comment: The drugs N-Acetylcysteine and Metamizole may falsely depress this assay. Serum Triglycerides Reference Interval Normal <150 mg/dL Borderline high 150 - 199 mg/dL High 200 - 499 mg/dL Very High > or = 500 mg/dL Performed By: #### L 500.4100 #### [facility] [address] [place], [address] Magnesiumon 07-13-2024 Magnesium [Mass/Vol] 2.0 mg/dL Normal 1.6-2.6 [facility] Comment on above: Performed By: #### L 501.5200 #### [facility] [address] [place], [address] Spine Cervical W/WO Contrast on 07-13-2024 Spine Cervical W/WO Contrast [facility] Imaging Services [address] [place] [address] Spine Cervical W/WO Contrast MR#: [id number] Acct: [id number] Name: WENDY DE JESUS Rep #: [id number] : 1985 F 39 From: Meek Belcher PCP: Dr. Filippo Huang, DO Status: ADM IN Study: Spine Cervical W/WO Contrast Date of Exam: Exam# [id number] Ordering Dr: [place] [id number] EXAM: MR CERVICAL SPINE WITHOUT AND WITH INTRAVENOUS CONTRAST CLINICAL INDICATION: Suspected stroke with possible MS -- Stiffness in both of her hands without pain. TECHNIQUE: Multiplanar and multisequence MR images of the cervical spine without and with intravenous contrast were performed. High-field strength MRI. CONTRAST: 13 cc of Clariscan IV. COMPARISON: No relevant prior studies available. FINDINGS: VERTEBRAE: See below. SPINAL CORD: See below. SOFT TISSUES: Edema centrally within the cervical spinal cord over a length of approximately 4.2 cm from inferior C2 through upper C5. At the mid point the edema involves the entire diameter of the cord. There is a 2nd smaller lesion measuring about 1 cm centrally at the C2 level. There is enhancement of the right lateral aspect of the cord over a length of approximately 1.6 cm from C3 through C4. No enhancement of the smaller lesion at C2 level. No prevertebral soft tissue swelling. LYMPH NODES: Unremarkable. There is no cervical adenopathy. DISCS/SPINAL CANAL/NEURAL FORAMINA: C2-C3: Unremarkable. Normal disc height and morphology. Normal spinal canal. Normal neuroforamina. C3-C4: Unremarkable. Normal disc height and morphology. Normal spinal canal. Normal neuroforamina. C4-C5: Unremarkable. Normal disc height and morphology. Normal spinal canal. Normal neuroforamina. C5-C6: Unremarkable. Normal disc height and morphology. Normal spinal canal. Normal neuroforamina. C6-C7: Unremarkable. Normal disc height and morphology. Normal spinal canal. Normal neuroforamina. C7-T1: Unremarkable. Normal disc height and morphology. Normal spinal canal. Normal neuroforamina. MRI/Spine Cervical W/WO Contrast IMPRESSION: Demyelinating lesion in the cervical cord with edema from C2 through C5 with some expansion of the cord. Within this there is a focal area of enhancement in the right periphery of the cord over a length of 1.6 cm from C3 through C4. Probable acute multiple sclerosis plaque given the patient''s history. There is a 2nd smaller lesion at the C2 level that does not demonstrate enhancement. Transverse myelitis can have a similar appearance but the lesion is typically more central. Electronically Signed: Meek Wilson MD at 3:55 EDT , CC: Dr. Filippo Huang DO; Dr. Jesse Lassiter MD Medical Office Representative: Signed Normal [facility] Spine Thoracic W/WO Contrast on 07-13-2024 Spine Thoracic W/WO Contrast [facility] Imaging Services [address] [place] [address] Spine Thoracic W/WO Contrast MR#: [id number] Acct: [id number] Name: WENDY DE JESUS Rep #: [id number] : 1985 F 39 From: Vladimir Macias MD PCP: Dr. Filippo Huang DO Status: ADM IN Study: Spine Thoracic W/WO Contrast Date of Exam: Exam# [id number] Ordering Dr: [place] [id number] INDICATION: Numbness across mid abdomen, suspected MS EXAMINATION: MRI - MR Spine Thoracic WO/W Contrast TECHNIQUE: Multiplanar and multisequence MR images of the thoracic spine. IV Contrast Dosage and Agent: 13 cc Clariscan COMPARISON: None. FINDINGS: VERTEBRAE: No acute fracture. Normal vertebral bodies and posterior elements. VERTEBRAL ALIGNMENT: Normal. There is preservation of the normal thoracic kyphosis. DISCS: 2 mm right paracentral focal disc protrusion at T7-8 encroaching on the thecal sac. Otherwise normal. Central canal and neural foramina. CORD: Unremarkable in signal and morphology. Normal conus medullaris. SOFT TISSUES: No abnormal soft tissue enhancement. MRI/Spine Thoracic W/WO Contrast IMPRESSION: 2 mm right paracentral focal disc protrusion at T7-8 with encroachment on the thecal sac. Electronically Signed: Vladimir Macias MD at 20:42 EDT , CC: Dr. Filippo Huang DO; Dr. Jesse Lassiter MD Medical Office Representative: Signed Normal [facility] Urinalysis, Completeon 07-13 AMORPHOUS 1+ Normal [facility] Comment on above: Order Comment: CLEAN CATCH Performed By: #### L 500.4100 #### [facility] [address] [place], [address] Mucus Ql (Urine sed) 1+ /hpf Normal [facility] Comment on above: Order Comment: CLEAN CATCH Performed By: #### L 500.4100 #### [facility] [address] [place], [address] BACTERIA 3+ /hpf Normal None Seen [facility] Comment on above: Order Comment: CLEAN CATCH Performed By: #### L 500.4100 #### [facility] [address] [place], [address] EPI,SQUAMOUS 10-25 SEEN Normal 5-10 [facility] Comment on above: Order Comment: CLEAN CATCH Performed By: #### L 500.4100 #### [facility] [address] [place], [address] WBC 5-10 SEEN Normal 0-5 [facility] Comment on above: Order Comment: CLEAN CATCH Performed By: #### L 500.4100 #### [facility] [address] [place], [address] RBC 0 SEEN Normal 0-5 [facility] Comment on above: Order Comment: CLEAN CATCH Performed By: #### L 500.4100 #### [facility] [address] [place], [address] Urine Drug Screen (VISTA)on 07-13-2024 AMPHETAMINES Negative Normal <1000 ng/mL [facility] Comment on above: Performed By: #### L 501.5200 #### [facility] [address] [place], [address] BARBITIURATES Negative Normal < 200 ng/mL [facility] Comment on above: Performed By: #### L 501.5200 #### [facility] [address] [place], [address] BENZODIAZIPINE Negative Normal < 200 ng/mL [facility] Comment on above: Performed By: #### L 501.5200 #### [facility] [address] [place], [address] COCAINE Negative Normal < 300 ng/mL [facility] Comment on above: Performed By: #### L 501.5200 #### [facility] [address] [place], [address] ECSTACY Negative Normal < 500 ng/mL [facility] Comment on above: Performed By: #### L 501.5200 #### [facility] [address] [place], [address] METHADONE Negative Normal < 300 ng/mL [facility] Comment on above: Performed By: #### L 501.5200 #### [facility] [address] [place], [address] OPIATES Negative Normal < 300 ng/mL [facility] Comment on above: Performed By: #### L 501.5200 #### [facility] [address] [place], [address] PCP Negative Normal < 25 ng/mL [facility] Comment on above: Performed By: #### L 501.5200 #### [facility] [address] [place], [address] THC Negative Normal < 50 ng/mL [facility] Comment on above: Performed By: #### L 501.5200 #### [facility] [address] [place], [address] VISTA UDS PH 5 Normal [facility] Comment on above: Performed By: #### L 501.5200 #### [facility] [address] [place], [place], [address] CORONAVIRUS PCR [CCL]on 05-28 COVID 19 Result CHANDELIER MAKER Negative Normal [facility] Comment on above: Result Comment: Nega tive for COVID19 (SARS CoV2) by PCR. This test was developed and its performance characteristics determined by [facility] [place]. This test has been authorized by FDA under an Emergency Use Authorization (EUA). This test has been validated in accordance with the FDA's Guidance Document Policy for Diagnostics Testing in Laboratories Certified to Perform High Complexity Testing under CLIA prior to Emergency use Authorization for Coronavirus Disease 2019 during the Public Health Emergency issued on December 25, 2019. [facility] [address] [place] [address] Kai Ribeiro III, M.D. [id number] Performed By: #### 2 [id number] #### [facility],37 [place] [id number] COVID 19 Source CHANDELIER MAKER Nasopharyngeal Swab Normal [facility] Comment on above: Result Comment: Vanessa ected on 06/14 AT 1101: Previously reported as NASAL SWAB Performed By: #### [id number] #### [facility],[address] [place] [id number] Coronavirus 2019on 0 COVID 19 Result CHANDELIER MAKER Normal Negative for COVID19 (SARS CoV2) by PCR. [facility] Comment on above: Result Comment: Nega tive for This test was developed and its performance characteristics determined by [facility]'s [facility] [place]. This test has been authorized by FDA under an Emergency Use Authorization (EUA). This test has been validated in accordance with the FDA's Guidance Document Policy for Diagnostics Testing in Laboratories Certified to Perform High Complexity Testing under CLIA prior to Emergency use Authorization for Coronavirus Disease 2019 during the Public Health Emergency issued on December 25, 2019. COVID19 (SARS This test was developed and its performance characteristics determined by [facility]'s [facility] [place]. This test has been authorized by FDA under an Emergency Use Authorization (EUA). This test has been validated in accordance with the FDA's Guidance Document Policy for Diagnostics Testing in Laboratories Certified to Perform High Complexity Testing under CLIA prior to Emergency use Authorization for Coronavirus Disease 2019 during the Public Health Emergency issued on December 25, 2019. CoV2) by PCR. This test was developed and its performance characteristics determined by [facility]'s [facility] [place]. This test has been authorized by FDA under an Emergency Use Authorization (EUA). This test has been validated in accordance with the FDA's Guidance Document Policy for Diagnostics Testing in Laboratories Certified to Perform High Complexity Testing under CLIA prior to Emergency use Authorization for Coronavirus Disease 2019 during the Public Health Emergency issued on December 25, 2019. Coronavirus 2019on 0 COVID 19 Source CHANDELIER MAKER Normal [facility] Comment on above: Result Comment: Naso pharyngeal Corrected on 06/14 AT 1101: Previously reported as NASAL SWAB Swab Corrected on 06/14 AT 1101: Previously reported as NASAL SWAB Vital Signs Date Time Vital Sign Value Performing Clinician Macie grewal 05-06-2025 13:52-0400 Body temperature 99.5 [degF] Meek Gould MD Work Phone: [facility] 05-06-2025 13:52-0400 Body weight 70.9 kg Meek Gould MD Work Phone: [facility] 05-06-2025 13:52-0400 Diastolic blood pressure 67 mm[Hg] Meek Gould MD Work Phone: [facility] 05-06-2025 13:52-0400 Heart rate 100 /min Meek Gould MD Work Phone: [facility] 05-06-2025 13:52-0400 Respiratory rate 18 /min Meek Gould MD Work Phone: [facility] 05-06-2025 13:52-0400 SaO2% (BldA) [Mass fraction] 100 % Meek Gould MD Work Phone: [facility] 05-06-2025 13:52-0400 Systolic blood pressure 118 mm[Hg] Meek Gould MD Work Phone: [facility] 01-11-2025 17:02-0400 Body temperature 98.2 [degF] Itzel Linder APRN.EXCEPTIONAL CHILDREN TEACHER Work Phone: [facility] 01-11-2025 17:02-0400 Body weight 69.7 kg Itzel Linder APRN.EXCEPTIONAL CHILDREN TEACHER Work Phone: [facility] 01-11-2025 17:02-0400 Diastolic blood pressure 72 mm[Hg] Itzel Linder APRN.EXCEPTIONAL CHILDREN TEACHER Work Phone: [facility] 01-11-2025 17:02-0400 Heart rate 80 /min Itzel Linder APRN.EXCEPTIONAL CHILDREN TEACHER Work Phone: [facility] 01-11-2025 17:02-0400 Respiratory rate 16 /min Itzel Linder APRN.EXCEPTIONAL CHILDREN TEACHER Work Phone: [facility] 01-11-2025 17:02-0400 SaO2% (BldA) [Mass fraction] 97 % tIzel Linder APRN.EXCEPTIONAL CHILDREN TEACHER Work Phone: [facility] 01-11-2025 17:02-0400 Systolic blood pressure 120 mm[Hg] Itzel Linder APRN.EXCEPTIONAL CHILDREN TEACHER Work Phone: [facility] 01-01-2025 01:55-0500 Body temperature 98 [degF] Dr. Michael Waterman MD Work Phone: [facility] 01-01-2025 01:55-0500 Diastolic blood pressure 62 mm[Hg] Dr. Michael Waterman MD Work Phone: [facility] 01-01-2025 01:55-0500 Heart rate 72 /min Dr. Michael Waterman MD Work Phone: [facility] 01-01-2025 01:55-0500 Respiratory rate 18 /min Dr. Michael Waterman MD Work Phone: [facility] 01-01-2025 01:55-0500 SaO2% (BldA) [Mass fraction] 100 % Dr. Michael Waterman MD Work Phone: [facility] 01-01-2025 01:55-0500 Systolic blood pressure 123 mm[Hg] Dr. Michael Waterman MD Work Phone: [facility] 01-01-2025 00:36-0500 Body height 162.[address] Michael Waterman MD Work Phone: [facility] 01-01-2025 00:36-0500 Body mass index (BMI) [Ratio] 27.3 kg/m2 Dr. Michael Waterman MD Work Phone: [facility] 01-01-2025 00:36-0500 Body weight 72.[address] Michael Waterman MD Work Phone: [facility] 04-30-2022 18:21-0400 Body temperature 98.6 [degF] Giorgio Chawla RIB CLOTH KNITTER.EXCEPTIONAL CHILDREN TEACHER Work Phone: [facility] 04-30-2022 18:21-0400 Body weight 71.85 kg Giorgio Chawla RIB CLOTH KNITTER.EXCEPTIONAL CHILDREN TEACHER Work Phone: [facility] 04-30-2022 18:21-0400 Diastolic blood pressure 80 mm[Hg] Giorgio Chawla RIB CLOTH KNITTER.EXCEPTIONAL CHILDREN TEACHER Work Phone: [facility] 04-30-2022 18:21-0400 Heart rate 69 /min Giorgio Chawla RIB CLOTH KNITTER.EXCEPTIONAL CHILDREN TEACHER Work Phone: [facility] 04-30-2022 18:21-0400 Respiratory rate 18 /min Giorgio Cammy RIB CLOTH KNITTER.EXCEPTIONAL CHILDREN TEACHER Work Phone: [facility] 04-30-2022 18:21-0400 SaO2% (BldA) [Mass fraction] 98 % Giorgio Chawla RIB CLOTH KNITTER.EXCEPTIONAL CHILDREN TEACHER Work Phone: [facility] 04-30-2022 18:21-0400 Systolic blood pressure 128 mm[Hg] Giorgio Chawla APRN.EXCEPTIONAL CHILDREN TEACHER Work Phone: [facility] Encounters Encounter Date Encounter Type Care Provider Facility Start: 05-06-2025 End: 05-06-2025 Office outpatient visit 25 minutes Meek Gould MD Work Phone: [facility] Comment on above: Sore throat (Primary Dx) Start: 05-06-2025 End: 05-06-[address] [facility] Facility:[facility] Start: 01-11-2025 End: 01-11-[address] [facility] Facility:[facility] Start: 01-11-2025 End: 01-11-2025 Patient encounter procedure Itzel Linder APRN.EXCEPTIONAL CHILDREN TEACHER Work Phone: [facility] Comment on above: Visit for wound chec k (Primary Dx); Visit for suture removal Start: 01-01-2025 End: 01-01-2025 [facility] department [facility] Facility:[facility] Start: 07-13-2024 End: 07-13-2024 ambulatory Carolyn Beka Facility:[facility] Start: 07-13-2024 ambulatory [facility] Facility:[facility] Start: 07-13-2024 End: 07-17-2024 [facility] Start: 04-30-2022 End: 04-30-2022 Patient encounter procedure Giorgio Chawla APRN.EXCEPTIONAL CHILDREN TEACHER Work Phone: [facility] Comment on above: Bacterial sinusitis (Primary Dx) Start: 06-12-2020 End: 06-12-2020 Patient encounter procedure STEPHANY LEW [facility] Procedures Date Procedure Procedure Detail Performing Clinician Start: 05-06-2025 Iadna streptococcus group a amplified probe tq Meek Gould MD Work Phone: Start: 01-11-2025 REMOVAL SUTURES OR S TAPLES NOT REQUIRING ANESTHESIA Itzel Linder APRN.EXCEPTIONAL CHILDREN TEACHER Work Phone: Start: 01-15-2012 Adult depression scr eening assessment Giorgio Chawla APRN.EXCEPTIONAL CHILDREN TEACHER Work Phone: Plan of Treatment Date Care Activity Detail Author Start: 01-01-2035 Urine microalbumin profile DTaP,Tdap,Td Vaccine (7 - Td or Tdap) [facility] Start: 06-27-2025 Influenza vaccination Influenza Vacc ine (#1) [facility] Start: 2025 Screening for malign ant neoplasm of breast Mammogram Screening [facility] Start: 01-01-2025 [facility] Start: 06-27-2024 Covid-19 Vaccine ( season) Covid-19 Vaccine () [facility] Start: 06-27-2024 Influenza vaccination Influenza Vacc ine (#1) [facility] Start: 06-27-2022 Influenza vaccination INFLUENZA (#1) [facility] Start: 12-25-2021 COVID-19 VACCINE (3 - Booster for Pfizer series) COVID-19 VACCINE (3 - Booster for Pfizer series) [facility] Start: 12-10-2016 PAP TESTING PAP TESTING [facility] Start: 2015 HPV TESTING HPV TESTING [facility] Start: 12-10-2014 Screening for malign ant neoplasm of cervix Cervical Cancer Screening [facility] Start: 01-14-2013 Adult depression screening assessment DEPRESSION SCREENING [facility] Start: 2003 Anxiety Screening Anxiety Screening [facility] Start: 2003 Depression Screening Depression Scre ening [facility] Start: 2003 HEPATITIS C SCREENING HEPATITIS C [facility] Start: 2003 Hepatitis C screening Hepatitis C [facility] Start: 04-02-2001 Urine microalbumin profile DTAP,TDAP,TD (6 - Tdap) [facility] Patient Education Tdap Vaccine E D Dog Bite ED Laceration, All Closures [facility] Work Phone: Patient referral [facility] Work Phone: Immunizations Immunization Date Immunization Notes Care Provider Fa cility 01-01-2025 tetanus toxoid, redu charleen diphtheria toxoid, and acellular pertussis vaccine, adsorbed Dr. Michael Waterman MD Work Phone: [facility] 08-20-2017 influenza, injectabl e, quadrivalent, preservative free Dr. Michael Waterman MD Work Phone: [facility] 08-20-2017 influenza, seasonal, injectable [facility] Work Phone: 09-05-2009 novel influenza-H1N1 -09, all formulations Giorgio Chawla RIB CLOTH KNITTER.EXCEPTIONAL CHILDREN TEACHER Work Phone: [facility] Work Phone: 07-09-2003 meningococcal polysaccharide vaccine (MPSV4) Giorgio Chawla RIB CLOTH KNITTER.EXCEPTIONAL CHILDREN TEACHER Work Phone: [facility] 03-11-2003 tuberculin skin test ; purified protein derivative solution, intradermal Itzel Linder RIB CLOTH KNITTER.EXCEPTIONAL CHILDREN TEACHER Work Phone: [facility] 10-05-2001 hepatitis B vaccine, pediatric or pediatric/adolescent dosage Giorgio Chawla RIB CLOTH KNITTER.EXCEPTIONAL CHILDREN TEACHER Work Phone: [facility] 05-04-2001 hepatitis B vaccine, pediatric or pediatric/adolescent dosage Giorgio Chawla RIB CLOTH KNITTER.EXCEPTIONAL CHILDREN TEACHER Work Phone: [facility] 04-01-2001 hepatitis B vaccine, pediatric or pediatric/adolescent dosage Giorgio Chawla RIB CLOTH KNITTER.EXCEPTIONAL CHILDREN TEACHER Work Phone: [facility] 04-01-2001 tetanus and diphther ia toxoids, adsorbed, preservative free, for adult use (2 Lf of tetanus toxoid and 2 Lf of diphtheria toxoid) Giorgio Chawla APRN.EXCEPTIONAL CHILDREN TEACHER Work Phone: [facility] 09-22-1999 influenza virus vacc ine, unspecified formulation Giorgio Chawla RIB CLOTH KNITTER.EXCEPTIONAL CHILDREN TEACHER Work Phone: [facility] 06-14-1997 measles, mumps and rubella virus vaccine Giorgio Chawla RIB CLOTH KNITTER.EXCEPTIONAL CHILDREN TEACHER Work Phone: [facility] 06-11-1990 diphtheria, tetanus toxoids and acellular pertussis vaccine Giorgio Chawla RIB CLOTH KNITTER.EXCEPTIONAL CHILDREN TEACHER Work Phone: [facility] 06-11-1990 trivalent poliovirus vaccine, live, oral Giorgio Chawla RIB CLOTH KNITTER.EXCEPTIONAL CHILDREN TEACHER Work Phone: [facility] 04-15-1987 diphtheria, tetanus toxoids and acellular pertussis vaccine Giorgio Chawla RIB CLOTH KNITTER.EXCEPTIONAL CHILDREN TEACHER Work Phone: [facility] 04-15-1987 haemophilus influenz ae type b vaccine, conjugate unspecified formulation [facility] RIB CLOTH KNITTER.EXCEPTIONAL CHILDREN TEACHER Work Phone: [facility] 04-15-1987 trivalent poliovirus vaccine, live, oral [facility] RIB CLOTH KNITTER.EXCEPTIONAL CHILDREN TEACHER Work Phone: [facility] 06-17-1986 measles, mumps and rubella virus vaccine [facility] RIB CLOTH KNITTER.EXCEPTIONAL CHILDREN TEACHER Work Phone: [facility] 1985 diphtheria, tetanus toxoids and acellular pertussis vaccine [facility] RIB CLOTH KNITTER.EXCEPTIONAL CHILDREN TEACHER Work Phone: [facility] 1985 diphtheria, tetanus toxoids and acellular pertussis vaccine [facility] RIB CLOTH KNITTER.EXCEPTIONAL CHILDREN TEACHER Work Phone: [facility] 1985 trivalent poliovirus vaccine, live, oral [facility] RIB CLOTH KNITTER.EXCEPTIONAL CHILDREN TEACHER Work Phone: [facility] 1985 diphtheria, tetanus toxoids and acellular pertussis vaccine [facility] RIB CLOTH KNITTER.EXCEPTIONAL CHILDREN TEACHER Work Phone: [facility] 1985 trivalent poliovirus vaccine, live, oral [facility] RIB CLOTH KNITTER.EXCEPTIONAL CHILDREN TEACHER Work Phone: [facility] Payers Date Payer Category Payer Self-pay [id number] 2019 Private Health Insurance MMO SUP ERMED PPO [id number] 2019 Unknown MMO MMO SU[employer] PLUS [id number] 2019-Present [phone] [address] [place] [address] O [id number] 2019 Unknown [id number] 1985 Unknown [id number] Unknown REPLACED BY [facility] [id number] Unknown [id number] Unknown [id number] Unknown [id number] Unknown [id number] Unknown [id number] Unknown [id number] Unknown [id number] Unknown [id number] Unknown [id number] Social History Date Type Detail Facility Start: 01-01-2025 Tobacco smoking stat [facility] Never smoked tobacco [facility] Work Phone: Start: 04-30-2022 End: 05-06-2025 Alcohol intake Current drinker of alcohol (finding) [facility] Start: 1985 Sex Assigned At Not on file [facility] Start: 1985 Sex Assigned At Female W olivan [facility] Start: 10-04-2020 End: 06-12-2022 History of Social function [facility] Start: 10-04-2020 End: 06-12-2022 Tobacco use panel [facility] Work Phone: National Score (1-10 0), lower number is lower risk Not on file [facility] Start: 01-01-2025 Sex Female (finding) [facility] Functional Status Date Assessment Result Facility 01-10-2015 Are you deaf, or do you have serious difficulty hearing No 01/10/2015 7:38 AM EDT Margarita Perez LPN No [facility] 01-10-2015 Are you blind, or do you have serious difficulty seeing, even when wearing glasses No 01/10/2015 7:38 AM EDT Margarita Perez LPN No [facility] 01-10-2015 Do you have serious difficulty walking or climbing stairs No 01/10/2015 7:38 AM EDT Margarita Perez LPN No [facility] 01-10-2015 Do you have difficul ty dressing or bathing No 01/10/2015 7:38 AM EDT Margarita Perez LPN No [facility] 01-10-2015 Because of a physica l, mental, or emotional condition, do you have difficulty doing errands alone such as visiting a physician's office or shopping No 01/10/2015 7:38 AM EDT Margarita Perez LPN No [facility] Mental Status Date Assessment Result Facility 01-10-2015 Because of a physica l, mental, or emotional condition, do you have serious difficulty concentrating, remembering, or making decisions No 01/10/2015 7:38 AM EDT Margarita Perez LPN No [facility] Clinical Notes 11-19-2010 to 05-06-2025 Meek Gould MD - 05/06/2025 2:09 PM EDTPatient Itzel Bishop APRN.EXCEPTIONAL CHILDREN TEACHER - 01/11/2025 5:02 PM EDTPatient Anca Chawla APRN.EXCEPTIONAL CHILDREN TEACHER - 04/30/2022 6:28 PM EDT Note Date & Type Note Facility 05-06-2025 Note HNO ID: [id number] Author: MEEK GOULD MD Service: ? Author Type: Physician Type: Progress Notes Filed: 05/06/2025 14:16 Note Text: [facility] Cassy De Jesus is a 40 year old female. Patient presents with: Sore Throat: Fever, bodyaches x1 day Pt here with 5 day hx of a sT and right neck lump painful then fever x 2 days now feeling worse no cough no rhinorrhea no rashes Sore Throat Associated symptoms include congestion. Pertinent negatives include no coughing, headaches, shortness of breath or stridor. Review of Systems Constitutional: Positive for chills, fatigue and fever. HENT: Positive for congestion and sore throat. Negative for rhinorrhea. Respiratory: Negative for cough, shortness of breath, wheezing and stridor. Neurological: Negative for dizziness and headaches. Objective BP 118/67 Pulse 100 Temp 37.5 ?C (99.5 ?F) Resp 18 Wt 70.9 kg (156 lb 4.9 oz) LMP 10/01/2010 SpO2 100% Physical Exam Vitals and nursing note reviewed. Constitutional: Appearance: Normal appearance. She is not ill-appearing. HENT: Right Ear: Tympanic membrane and ear canal normal. Left Ear: Tympanic membrane and ear canal normal. Nose: Congestion present. Mouth/Throat: Mouth: Mucous membranes are moist. Pharynx: Posterior oropharyngeal erythema present. No oropharyngeal exudate. Cardiovascular: Rate and Rhythm: Normal rate and regular rhythm. Heart sounds: Normal heart sounds. Pulmonary: Effort: Pulmonary effort is normal. Breath sounds: Normal breath sounds. No stridor. No wheezing, rhonchi or rales. Musculoskeletal: Cervical back: Normal range of motion and neck supple. Lymphadenopathy: Cervical: Cervical adenopathy present. Neurological: Mental Status: She is alert and oriented to person, place, and time. Psychiatric: Mood and Affect: Mood normal. Behavior: Behavior normal. Results for orders placed or performed in visit on 05/06/25 STREP A MOLECULAR (POC) Specimen: Oropharynx; Swab Result Value Ref Range Strep A (POCT) Negative Negative Procedural Control Valid {ASSESSMENT/PLAN: 1. Sore throat - ICD9: 462, ICD10: J02.9 Start prednisone for now if not improved in a few dasy can add the antibiotics return here as needed - STREP A MOLECULAR (POC) - PREDNISONE 20 MG TABLET - AZITHROMYCIN 250 MG TABLET Meek Gould MD History and Record Review Systemic symptoms present included: Fever chills Differential Diagnoses - pharyngitis is more likely for the following reason(s): suggested by HANDP - strep is less likely for the following reason(s): laboratory studies not suggestive Disposition The patient was discharged. Procedures [facility] 05-06-2025 History of Presen t illness Narrative [facility] Cassy De Jesus is a 40 year old female. Patient presents with: Sore Throat: Fever, bodyaches x1 day Pt here with 5 day hx of a sT and right neck lump painful then fever x 2 days now feeling worse no cough no rhinorrhea no rashes Sore Throat Associated symptoms include congestion. Pertinent negatives include no coughing, headaches, shortness of breath or stridor. Review of Systems Constitutional: Positive for chills, fatigue and fever. HENT: Positive for congestion and sore throat. Negative for rhinorrhea. Respiratory: Negative for cough, shortness of breath, wheezing and stridor. Neurological: Negative for dizziness and headaches. Objective BP 118/67 Pulse 100 Temp 37.5 C (99.5 F) Resp 18 Wt 70.9 kg (156 lb 4.9 oz) LMP 10/01/2010 SpO2 100% Physical Exam Vitals and nursing note reviewed. Constitutional: Appearance: Normal appearance. She is not ill-appearing. HENT: Right Ear: Tympanic membrane and ear canal normal. Left Ear: Tympanic membrane and ear canal normal. Nose: Congestion present. Mouth/Throat: Mouth: Mucous membranes are moist. Pharynx: Posterior oropharyngeal erythema present. No oropharyngeal exudate. Cardiovascular: Rate and Rhythm: Normal rate and regular rhythm. Heart sounds: Normal heart sounds. Pulmonary: Effort: Pulmonary effort is normal. Breath sounds: Normal breath sounds. No stridor. No wheezing, rhonchi or rales. Musculoskeletal: Cervical back: Normal range of motion and neck supple. Lymphadenopathy: Cervical: Cervical adenopathy present. Neurological: Mental Status: She is alert and oriented to person, place, and time. Psychiatric: Mood and Affect: Mood normal. Behavior: Behavior normal. Results for orders placed or performed in visit on 05/06/25 STREP A MOLECULAR (POC) Specimen: Oropharynx; Swab Result Value Ref Range Strep A (POCT) Negative Negative Procedural Control Valid {ASSESSMENT/PLAN: 1. Sore throat - ICD9: 462, ICD10: J02.9 Start prednisone for now if not improved in a few dasy can add the antibiotics return here as needed - STREP A MOLECULAR (POC) - PREDNISONE 20 MG TABLET - AZITHROMYCIN 250 MG TABLET Meek Gould MD History and Record Review Systemic symptoms present included: Fever chills Differential Diagnoses - pharyngitis is more likely for the following reason(s): suggested by H&P - strep is less likely for the following reason(s): laboratory studies not suggestive Disposition The patient was discharged. Procedures documented in this encounter [facility] 05-06-2025 Instructions Meek Gould MD - 05/06/2025 2:09 PM EDT Pharyngitis You have been diagnosed with pharyngitis. Pharyngitis is an infection of the back of your throat. Most sore throats are caused by viruses and do not require antibiotics. Some sore throats are caused by bacteria. Antibiotics will help this type of sore throat. A test for Strep throat may be used to help in your diagnosis. Symptoms of pharyngitis include fever (temperature higher than 100.4 F / 38 C), sore throat, and a hoarse voice. If you have cold symptoms such as sneezing and coughing, runny nose, or congestion, your sore throat is more likely to be caused by a virus and not bacteria. Whether your sore throat is caused by a virus or bacteria, you may need medication for pain and fever. You should also drink a lot of fluid. If your sore throat is caused by bacteria, you will also need antibiotics. If your sore throat is caused by a virus, you do not need antibiotics. Antibiotics will not kill the virus, and they may cause side effects, like diarrhea, abdominal cramps, or allergic reactions. Taking an antibiotic that you do not need may cause resistance, meaning that antibiotic won't work in the future when you have a true bacterial infection. YOU SHOULD SEEK MEDICAL ATTENTION IMMEDIATELY, EITHER HERE OR AT THE NEAREST EMERGENCY DEPARTMENT, IF ANY OF THE FOLLOWING OCCURS: You have difficulty breathing. Your voices changes or seems muffled. You have trouble swallowing. You have a fever (temperature higher than 100.4 F / 38 C) that won't go away. You feel worse or do not improve after 2 to 3 days. documented in this encounter [facility] 01-11-2025 Note HNO ID: [id number] Author: ITZEL LINDER APRN.EXCEPTIONAL CHILDREN TEACHER Service: ? Author Type: Nurse Practitioner Type: Progress Notes Filed: 01/11/2025 17:08 Note Text: [facility] Subjective Wendy De Jesus is a 39 year old female. Patient presents with: Suture Removal: left forearm x 10 days, 1 suture Patient came in to have sutures removed. Patient had it placed 10 days ago. Patient has not had any trouble with the site. The history is provided by the patient. No asl interpreter was used. Suture Removal Review of Systems Constitutional: Negative. HENT: Negative. Objective BP 120/72 Pulse 80 Temp 36.8 ?C (98.2 ?F) Resp 16 Wt 69.7 kg (153 lb 10.6 oz) LMP 10/01/2010 SpO2 97% Physical Exam Constitutional: Appearance: Normal appearance. Pulmonary: Effort: Pulmonary effort is normal. Skin: Comments: Patient wound located in the area marked above healed completely wound approximated. 1 stitch was removed successfully patient tolerated well. Neurological: Mental Status: She is alert. {ASSESSMENT/PLAN: 1. Visit for wound check - ICD9: V58.89, ICD10: Z51.89 (primary diagnosis) 2. Visit for suture removal - ICD9: V58.32, ICD10: Z48.02 1 suture was removed successfully patient tolerated well. Itzel Linder APRN.SILVIA History and Record Review External record(s) reviewed: no prior records. Disposition The patient was discharged. SUTURE REMOVAL Date/Time: 01/11/2025 5:06 PM Performed by: Itzel Linder APRN.EXCEPTIONAL CHILDREN TEACHER Authorized by: Itzel Linder APRN.EXCEPTIONAL CHILDREN TEACHER Location: Body area: Upper extremity Location details: Left lower arm Procedure details: Wound appearance: Clean Suture not placed during surgical procedure [facility] 01-11-2025 History of Presen t illness Narrative Associated Order(s): Suture Removal Post-Procedure Diagnose(s): Visit for suture removal; Visit for wound check Images from the original note were not included. [facility] Subjective Wendy De Jesus is a 39 year old female. Patient presents with: Suture Removal: left forearm x 10 days, 1 suture Patient came in to have sutures removed. Patient had it placed 10 days ago. Patient has not had any trouble with the site. The history is provided by the patient. No asl interpreter was used. Suture Removal Review of Systems Constitutional: Negative. HENT: Negative. Objective BP 120/72 Pulse 80 Temp 36.8 C (98.2 F) Resp 16 Wt 69.7 kg (153 lb 10.6 oz) LMP 10/01/2010 SpO2 97% Physical Exam Constitutional: Appearance: Normal appearance. Pulmonary: Effort: Pulmonary effort is normal. Skin: Comments: Patient wound located in the area marked above healed completely wound approximated. 1 stitch was removed successfully patient tolerated well. Neurological: Mental Status: She is alert. {ASSESSMENT/PLAN: 1. Visit for wound check - ICD9: V58.89, ICD10: Z51.89 (primary diagnosis) 2. Visit for suture removal - ICD9: V58.32, ICD10: Z48.02 1 suture was removed successfully patient tolerated well. Itzel Linder APRN.CNP History and Record Review External record(s) reviewed: no prior records. Disposition The patient was discharged. SUTURE REMOVAL Date/Time: 01/11/2025 5:06 PM Performed by: Itzel Linder APRN.EXCEPTIONAL CHILDREN TEACHER Authorized by: Itzel Linder APRN.SILVIA Location: Body area: Upper extremity Location details: Left lower arm Procedure details: Wound appearance: Clean Suture not placed during surgical procedure documented in this encounter [facility] 01-01-2025 Discharge summary [facility] 07-17-2024 Note [facility] Medical Records Department [address] [place] [id number] Discharge Summary 07/17/24 1710 MR#: [id number] Acct: [id number] Name: WENDY DE JESUS Rep #: [id number] : 1985 39 From: Denny Bennett MD PCP: Dr. Filippo Huang DO Status:DIS IN [id number] Providers Date of Admission: 07/13/24 Primary Care Physician: Dr. Filippo Huang DO Consultations 07/13/24 08:26 neuro [Consult: Tele-Neurology] Routine Consulting Provider: [facility] Reason for Consult: dysequilibrium, paresthesias T9 L>R, urinary incontinence EMERGENT Consult: Yes MD Notified: Yes Date Notified: 07/13/24 Time Notified: 08:26 Method of Notification: ED Physician Initiated Nursing Unit Staff Notify [facility] of Tele-Neurology Consult: Yes Reason For Visit: B/L TRUNK AND LE NUMBNESS Diagnosis Discharge Diagnosis (1) Dysequilibrium: Status: Acute Code(s): R42 - Dizziness and giddiness (2) Paresthesias: Status: Acute Code(s): R20.2 - Paresthesia of skin Medications at Discharge Home Medications multivitamin,ow-pjhr-lzaebhfl (Complete Multivitamin tablet) 1 tab PO QDAY 01/29/18 ergocalciferol (vitamin D2) 1,250 mcg (50,000 unit) capsule (Vitamin D2) 1,250 mcg PO QWEEK #7 caps 07/17/24 pantoprazole 40 mg tablet,delayed release 40 mg PO DAILY 30 days #30 tabs 07/17/24 prednisone 50 mg tablet 50 mg PO DAILY #25 tabs 07/17/24 Hospital Course Operations None Procedures - (Lumbar puncture) Summary of Care Provided Minutes Spent on Discharge: 45 Hospital Course: Per HPI: WENDY DE JESUS, is a 39 F came to ED with multiple symptoms for about 1 week. She describes as numbness around her mid abdomen front and back which is localized with some twitching movements of right lower extremity intermittently. It is not periodic or in a pattern. 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 For last few days in the past week she had intermittent urinary incontinence felt like urge incontinence with leaking of urine. Denies burning micturition. Denies fever or flulike symptoms. Her medical history starts from 2011 when she had diplopia/crossed eye and had MRI of brain and was some lesion was found. That lesion was followed for next several years without any diagnosis because there were small. In about 2018, she underwent divorce and had distress and felt like her right upper extremity stiffness or not in good control and thought it is from the stress. She is not yet diagnosed with a neurological condition including MS. In ED, the ER physician talked to [facility] neurologist and advised MRI brain, C-spine and thoracic spine with and without contrast that have been ordered. Patient is further admitted Patient's symptom complex does not relate to acute or subacute or strokelike symptoms as her symptoms are like about 1 week. In ED, stroke alert was not indicated and therefore not called. She denies smoking history. Drinks beer and wine few times in a month. Denies substance use. Hospital Course: 1. MS flare???39-year-old female presented to the hospital with numbness around her mid abdomen with some localized twitching in her right lower extremity. She had been noticing this issue for about a week prior to coming into the hospital. She states that her father in 2011 from MS and that she has had spots in her brain 2 other times that were consistent with MS. This time around she had an MRI of her cervical spine that demonstrated a C2-C5 lesion with edema. A lumbar puncture was obtained and lab work is still pending which will need to be followed up as an outpatient. [facility] neurology was contacted and recommended 1 g of Solu-Medrol daily for 5 days. She did receive 4 of those doses and was discharged today with prescription for 1.25 g of prednisone to take tomorrow. She was also discharged on vitamin D as this was low and GI prophylaxis with Protonix. She is already looking for a neurologist in [place], [facility] will reach out to her for follow-up if [place] does not work out in time as she is to be seen within the next 1 to 3 months. She is feeling much better today and I discussed with her the plan for discharge she expressed understanding of the risk benefits of going home and would like to go home today. Physical Exam Narrative General: Alert, Oriented x3, Cooperative, No apparent distress HEENT: Atraumatic, PERRLA, EOMI, Normocephalic Oral: Moist Mucosa Neck: Supple, No JVD Lungs: Clear to auscultation, Normal air movement, No rhonchi, No wheeze, No rales Cardiovascular: Regular rate, Regular Rhythm, Normal S1, Normal S2, No murmurs Abdomen: Soft, Non Tender, Non-Distended, No Hepato-splenomegaly Extremities: No edema, Capillary Refill Less than 3 Seconds Skin: No rashes, No breakdown Musculoskeletal: No Tenderness to [place] (more content not included)... [facility] 04-30-2022 Instructions Giorgio Chawla APRN.CNP - 04/30/2022 6:41 PM EDT Images from the original note were not included. Adult Sinusitis Patient Education What is Sinusitis? Sinusitis [tkai-xxb-mtty-tis] is inflammation of the sinuses or swelling of the lining of the sinus cavity or nose. During an infection the sinuses become blocked with fluid causing swelling of the lining of the sinuses. Symptoms: (viral and bacterial infections) Stuffy nose Runny nose Postnasal drip Fever Toothache Headache Tiredness Cough Sore throat Face and head pressure and or pain Common causes: 98% of sinus infections are viral caused by viruses. Risk Factors of Sinusitis Include: Allergies, air pollution, indoor humidity and outdoor temperature changes, andstructural changes in the nose may contribute to sinus pain, pressure and congestion. When to get help? Temperature greater than 100.4 F Symptoms lasting more than 10 days or worsening symptoms greater than 7-10 days. If you do not improve or worsen after a course of antibiotics, you should be re-examined. Diagnosis and Treatment: Your healthcare provider will ask a number of questions about your symptoms and how long they have occurred. If symptoms of sinusitis persist greater than 10 days, it is possible you have a bacterial sinus infection and an antibiotic is prescribed. If it is viral, antibiotics will not help. You may be instructed to take fdre-nev-ldjfwxk medications for symptoms. including fever reducers acetaminophen or ibuprofen, nasal saline spray, cough and cold preparations and decongestants as prescribed by the physician, nurse practitioner or physician assistant gm of content & delivery. Self-Care and Prevention: Rest Fluids for hydration Good hand washing Humidifier Avoid smoking and exposure to second hand smoke Avoid sick contacts documented in this encounter [facility] 04-30-2022 History of Present illness Narrative Subjective HPI Nontoxic-appearing female presents urgent care chief complaint possible sinus infection. Duration of symptoms 8 days. Associated symptoms sinus headache sinus pressure and drainage. Patient states initially she had URI-like symptoms those have since subsided. Over the last few days sinus pressure worsened again. No OTC medications today. Denies any known sick contacts. Denies any significant pain currently. Denies any fever body aches chills nausea vomiting abdominal pain cough chest pain shortness of breath or change in bowel or bladder habits. Past medical history prescription medication use allergies reviewed. .Patient presents with: Sinus Problem: sinus pressure and pain and blowing green PAST MEDICAL HISTORY Diagnosis Date Other kyphoscoliosis and scoliosis PAST SURGICAL HISTORY Procedure Laterality Date LAPS SURG CHOLECYSTECTOMY W/CHOLANGIOGRAPHY 07/09/13 PAST SURGICAL HISTORY OF WISDOM TEETH ALLERGIES Dust Mites, Feathers, and Mold MEDICATIONS multivitamin (DAILY MULTIVITAMIN) ORAL tablet Take one(1) tablet daily. FAMILY HISTORY Problem Relation Age of Onset Heart Maternal Grandmother other (multiple sclerosis [Other]) Father 40 other (pulmonary embolis [Other]) Maternal Uncle Alcohol/Drug Maternal Grandfather ETOH Cancer Paternal Grandfather Unknown Arthritis Maternal Grandmother Emphysema Maternal Grandfather Hypertension Mother Seizures Paternal Grandmother Social History Tobacco Use Smoking status: Never Smoker Smokeless tobacco: Never Used Substance Use Topics Alcohol use: Yes Comment: social, NOT WHILE Drug use: No BP 128/80 Pulse 69 Temp 37 C (98.6 F) (Tympanic) Resp 18 Wt 71.8 kg (158 lb 6.4 oz) LMP 10/01/2010 SpO2 98% BMI 27.19 kg/m Review of Systems Constitutional: Negative for chills, fever and malaise/fatigue. HENT: Positive for congestion and sinus pain. Negative for ear discharge, ear pain and sore throat. Eyes: Negative for blurred vision, pain, discharge and redness. Respiratory: Negative for cough, hemoptysis, sputum production, shortness of breath, wheezing and stridor. Cardiovascular: Negative for chest pain. Gastrointestinal: Negative for abdominal pain, diarrhea, nausea and vomiting. Musculoskeletal: Negative for myalgias. Skin: Negative for itching and rash. Neurological: Positive for headaches. Negative for dizziness. Objective Physical Exam Vitals and nursing note reviewed. Constitutional: General: She is not in acute distress. Appearance: She is not diaphoretic. HENT: Head: Normocephalic and atraumatic. Jaw: No trismus, tenderness, swelling or pain on movement. Right Ear: Hearing, tympanic membrane, ear canal and external ear normal. No decreased hearing noted. No drainage, swelling or tenderness. No mastoid tenderness. Tympanic membrane is not perforated, erythematous or bulging. Left Ear: Hearing, tympanic membrane, ear canal and external ear normal. No decreased hearing noted. No drainage, swelling or tenderness. No mastoid tenderness. Tympanic membrane is not perforated, erythematous or bulging. Nose: Right Sinus: Maxillary sinus tenderness present. Left Sinus: Maxillary sinus tenderness present. Mouth/Throat: Lips: [place]. Mouth: Mucous membranes are moist. Pharynx: Oropharynx is clear. Uvula midline. No pharyngeal swelling, oropharyngeal exudate, posterior oropharyngeal erythema or uvula swelling. Eyes: General: Right eye: No discharge. Left eye: No discharge. Conjunctiva/sclera: Conjunctivae normal. Pupils: Pupils are equal, round, and reactive to light. Cardiovascular: Rate and Rhythm: Normal rate and regular rhythm. Heart sounds: Normal heart sounds. Pulmonary: Effort: Pulmonary effort is normal. No tachypnea, accessory muscle usage or respiratory distress. Breath sounds: Normal breath sounds. No stridor. No wheezing, rhonchi or rales. Abdominal: Palpations: Abdomen is soft. Tenderness: There is no abdominal tenderness. Musculoskeletal: General: No tenderness. Normal range of motion. Cervical back: Normal range of motion and neck supple. No rigidity or tenderness. Lymphadenopathy: Head: Right side of head: No submental, submandibular, tonsillar, preauricular, posterior auricular or occipital adenopathy. Left side of head: No submental, submandibular, tonsillar, preauricular, posterior auricular or occipital adenopathy. Cervical: No cervical adenopathy. Right cervical: No superficial or posterior cervical adenopathy. Left cervical: No superficial or posterior cervical adenopathy. Skin: General: Skin is warm and dry. Findings: No rash. Neurological: Mental Status: She is alert and oriented to person, place, and time. ASSESSMENT/PLAN: 1. Bacterial sinusitis - ICD9: 473.9, 041.9, ICD10: J32.9, B96.89 Double sickening. Symptoms greater than 1 week. Patient diagnosed with bacterial sinusitis. Will be placed on Augmentin. Patient was educated on supportive therapies. Patient will follow up with primary care provider as needed. Patient was instructed to immediately proceed to emergency room for any new, worsening, or symptoms lasting longer than anticipated. The patient's clinical presentation is otherwise unremarkable at this time. Based on exam and clinical finding, the patient is stable for discharge. Plan of care was discussed with patient. Patient verbalizes understanding and agrees to plan of care. This note was generated using Appside software. It may contain errors in wording, punctuation, or spelling. Giorgio Chawla APRN.SILVIA documented in this encounter [facility] 11-19-2010 History of Past i llness Narrative Problem Noted Date Resolved Date Surveillance of previously p rescribed intrauterine contraceptive device 11/19/2010 12/10/2011 Supervision of normal first 02/05/2007 07/26/2010 documented as of this encounter (statuses as of 04/30/2022) [facility] Michael Waterman [facility] Note Date/Time January 01, 2025 1:41 am [facility] Medical Records Department [address] [place] [address] Emergency Department Summary 01/01/25 MR#: [id number] Acct: [id number] Name: WENDY DE JESUS FEBRUARY Rep #:[id number] : 1985 39 From: Michael Waterman MD PCP: RIMA Wood Status:REG ER Location: ED HPI History of Present Illness Chief Complaint: Bite Informant: patient Narrative Narrative: 39-year-old healthy female sustained an injury to her left forearm when she got in between her 2 healthy dogs whose vaccinations are up-to-date, as they were fighting over a bone. They are not ill and were fine prior to this. She deniesany loss of function, numbness, weakness. No other injuries. Tetanus Immunization: >10 years [facility] Medical History no medical history no medical history Home Medications ?Medication ?Instructions ?Recorded ?Last Taken ?Type multivitamin,gr-xzwm-uuukxkkm 1 tab PO QDAY 01/29/18 U nknown History (Complete Multivitamin tablet) ergocalciferol (vitamin D2) 1,250 1,250 mcg PO QWEEK # 7 caps 07/17/24 Unknown Rx mcg (50,000 unit) capsule (Vitamin D2) pantoprazole 40 mg tablet,delayed 40 mg PO DAILY 30 da ys #30 tabs 07/17/24 Unknown Rx release prednisone 50 mg tablet 50 mg PO DAILY #25 tabs 06/28 11/19 Unknown Rx amoxicillin 875 mg-potassium 875 mg PO Q12H #20 TABLET S 01/01/25 Unknown Rx clavulanate 125 mg tablet Allergy/AdvReac Type Severity Reaction Status Date / Time No Known Allergies Allergy Verified 01/01/25 00:36 Surgical History History of cholecystectomy Social History Smoking Status: Never smoker alcohol intake: current alcohol intake frequency: a few times a month Alcohol type: beer and wine ROS ROS ED Constitutional Constitutional ED: Denies chills or fever(s) Musculoskeletal Musculoskeletal: Reports extremity pain; Denies neck pain Integumentary Denies Abrasions, rash or wounds Neurologic Neurologic: Denies paresthesias or weakness EXAM Physical Exam Const Vital Signs: 01/01/25 00:36 Temperature 98 F Temperature Source Oral Pulse Rate 70 Respiratory Rate 18 Blood Pressure 114/76 Blood Pressure Mean 88 Pulse Ox 99 Oxygen Delivery Method Room Air Positive well nourished and well developed General Appearance ED: well developed and NAD Neck full ROM and supple Back/Spine normal ROM and normal to inspection Extremity Extremity Narrative: Laceration/puncture wound to the volar left forearm, and a superficial partial-thickness laceration to the dorsal aspect. All extensor and flexor tendon function intact throughout all fingers and wrist, all compartment soft and nondistended. Couple of other marquez consistent with contusion from other teeth but no other punctures of the skin. Neuro oriented x3, no focal motor deficits and no sensory deficits noted Sensorium / Orientation: alert Psych mental status grossly normal and thought process normal Skin Skin Narrative: 1.5 cm full-thickness laceration with subcutaneous fat exposed volar left forearm. 0.5 cm partial-thickness laceration dorsal forearm. No other lacerations. Rashes: no rashes MDM MDM MDM Narrative Medical decision making narrative: Patient was amenable to updating her tetanus. The dorsal laceration showing subcutaneous fat herniating from the wound was repaired with a horizontal mattress stitch after irrigating profusely. The puncture was not deep. The 1 on the dorsal side does not need to be repaired, it was cleansed and dressed by nursing as was the other 1 after repair. Started on Augmentin to prevent infection, and provided a prescription for 7-day course. Procedures Lacerations Volar left forearm: Length: 1.5 cm Depth: Sub Q Shape: Linear Prep: Sterile Conditions and Chlorhexadine Laceration repair: Irrigated (Pressure), Lidocaine with epi (1cc, 1%), Local and Skin sutures Irrigated (ml): 50 Number of Sutures/[place]: 1 Suture Information: Ethilon, Horizontal, Mattress and 4-0 Comment: Tolerated well no complications. Pretreated with topical LET Discharge Plan Triage Chief Complaint: Bite ED Provider: Michael Waterman Dx/Rx/DC Orders Clinical Impression: Open wound of left forearm due to dog bite, Immunization, tetanus-diphtheria Instructions: Tdap Vaccine, ED Dog Bite, ED Laceration, All Closures Prescriptions: New amoxicillin-pot clavulanate 875-125 mg tablet 875 mg PO Q12H Qty: 20 0RF No Action multivitamin,ak-fjia-lioumnlc [Complete Multivitamin] tablet 1 tab PO QDAY pantoprazole 40 mg Tablet,Delayed Release (Dr/Ec) 40 mg PO DAILY 30 Days Qty: 30 0RF prednisone 50 mg tablet 50 mg PO DAILY Qty: 25 0RF Rx Instructions: Take 25 tablets on 07/18/24 ergocalciferol (vitamin D2) [Vitamin D2] 1,250 mcg (50,000 unit) capsule 1,250 mcg PO QWEEK Qty: 7 0RF Primary Care Provider: Ofelia Lockett Referrals: Filippo Huang DO [Med Staff - Livestock Producer] - 10-14 Days suture removal (or urgent care/ER) Print Language: Hebrew Disposition Disposition: Home, Self Care What to do if you have Problems For any increased pain, shortness of breath, bleeding, nausea or vomiting, chestpain, or any unexpected problems, contact your Primary Care Provider. Call [facility] ([phone]) or report to the closest Emergency Room. Call 911 if necessary. 01/01/25 0141 <Electronically signed by Michael Waterman MD> Cosigner Signature (if applicable): CC: RIMA Lockett ~ Signed [facility] Work Phone: Evaluation note* Diagnosis Bacterial sinusitis- Primary Unspecified sinusitis (chronic) [facility] noteNo assessment information availableWPike Community [facility] Work Phone: Evaluation note* Diagnosis Visit for wound check- Primary Encounter for other specified aftercare Visit for suture removal Encounter for removal of sutures [facility]* Diagnosis Sore throat- Primary Acute pharyngitis documented in this encounter [facility] Summary Purpose Family History No Family History Records FoundNo Family History Records FoundNo Family History Records FoundNo Family History Records Found Advance Directives No Advanced Directives Records FoundDocuments on File Type Date 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 Advance Directive(s) Advance Directive Response Recorded Date/ Time Living Will No January 01, 2025 12:39am Power of Impression Printer No January 01 12:39am Chief Complaint and Reason for Visit Chief Complaint Admit Date bite January 01, 2025 12:3 5am Additional Source Comments INFORMATION SOURCE (unrecogn ized section and content) DATE CREATED AUTHOR 06/15/2020 [facility] DATE CREATED AUTHOR AUTHOR'S ORGANIZ ATION 06/17/2020 [facility] DATE CREATED AUTHOR AUTHOR'S ORGANIZ ATION 01/15/2025 [facility] DATE CREATED AUTHOR AUTHOR'S ORGANIZ ATION 05/16/[address] [facility] Source Comments (unrecognize d section and content) In the event this informatio n is protected by the Federal Confidentiality of Alcohol and Drug Abuse Patient Records regulations: The Federal rules restrict any use of the information to criminally investigate or prosecute any alcohol or drug abuse patient.[facility] the event this information is protected by the Federal Confidentiality of Alcohol and Drug Abuse Patient Records regulations: The Federal rules restrict any use of the information to criminally investigate or prosecute any alcohol or drug abuse patient.[facility] the event this information is protected by the Federal Confidentiality of Alcohol and Drug Abuse Patient Records regulations: The Federal rules restrict any use of the information to criminally investigate or prosecute any alcohol or drug abuse patient.[facility] Reason for Visit (unrecogniz ed section and content) Reason Comments Sinus Problem sinus pressure and p ain and blowing green Reason Comments Suture Removal left forearm x 10 da ys, 1 suture Reason Comments Sore Throat Fever, bodyaches x1 day Goals (unrecognized section and content) Goals may be documented in a n alternate sectionGoals may be documented in an alternate section Care Teams (unrecognized sec tion and content) Livestock Pro[employer] Relationship Specialty Start Date End Date Ofelia Lockett NP [address] [place] [id number] PCP - General Family Medicine 01/11/25 Team Status: Active Member Role Status Dates Ofelia Beto , CHANDELIER MAKER-C Primary Care Provider Active Team Status: Inactive Member Role Status Dates Dr. Michael Waterman MD Emergency Provider Active Start: January 01, 2025 End: January 01, 2025 Ofelia Lockett NP-Penny Primary Care Provider Active Start: January 01, 2025 End: January 01, 2025 Livestock Producer Relationship Specialty Start Date End Date Ofelia Lockett NP [address] [place] [address] PCP - General Family Medicine 01/11/25 FOR RECORDS PERTAINING TO PATIENTS WHO ARE OR HAVE BEEN ENROLLED IN A CHEMICAL DEPENDENCY/SUBSTANCEABUSE PROGRAM, SOME INFORMATION MAY BE OMITTED. This clinical summary was aggregated from multiple sources. Caution should be exercised in using it in the provision of clinical care. This summary normalizes information from multiple sources, and as a consequence, information in this document may materially change the coding, format and clinical context of patient data. In addition, data may be omitted in some cases. CLINICAL DECISIONS SHOULD BE BASED ON THE PRIMARY CLINICAL RECORDS. [employer] provides no warranty or guarantee of the accuracy or completeness of information in this document.
--- OUTSIDE RECORDS SUMMARY | 2025-07-21 09:59 | XMS RPT_ITS | CCD ---
Author Organization [facility] Informat ion Partnership [facility] Care Team Providers Care Paper Twister Name Role Phone LOUANNSTEPHANY Admitting Unavailable LOUANNSTEPHANY Attending Unavailable LOUANNSTEPHANY MIGUEL Primary Care Unavailable Unavailable Primary Care Provider Unavailjakob Lockett MATERIAL ANALYST, [place] Primary Care Provider Maikol, Jesse Admitting [...] [employer] Unavailable Denny Bennett [facility]ending Un[facility] Un[facility] Maikol, Jesse Admitting Unavailable [...] Dr. Michael Waterman MD Emergency Provider Beto MATERIAL ANALYST-C [place] Primary Care Provider BETO OFELIA Primary Care Unavailable BETO PARMA Primary Care Unavailable MEEK GOULD Attending Unavailable Allergies Allergy Classification Reported Allergen(s) Allergy Type Date of Onset Reaction(s) Facility (4 sources) Feather; Translations: [FEATHERS] Drug Allergy 4 Other: See Comments [facility] Work Phone: (4 sources) House dust mite; Translations: [DUST MITES] Allergy to substance 4 Other: See Comments [facility] Work Phone: (4 sources) Mold Extract; Translations: [MOLD] Drug Allergy 4 Other: See Comments [facility] Work Phone: Medications Current Medications Medication Drug [...] Comment on above: Take 1 tablet by [facility] twice daily for 5 days. azithromycin 250 [...] CNOV Office Visit (WOUCA) WENDY DE JESUS ([id number]) 1985 F Date Time Provider Department 05/06/25 [...] 05/06/2025 Revi (more content not included)... Normal [facility] STREP A MOLECULAR (POC)on Procedural Control Valid [facility] Strep A (POCT) Negative Negative [facility] CNOVon 01-11-2025 CNOV Office Visit (UCWSTR ) WENDY DE JESUS ([id number]) 1985 F Date Time Provider Department 01/11/25 5:00 PM ITZEL LINDER [facility] [place] During your visit today, we recorded the following information about you: Temperature Pulse Respiration Blood pressure 98.2 degrees 80/minute 16/minute 120/72 Weight 69.7 kg Itzel Linder APRN.MOLD INJECTOR 01/11/2025 5:08 PM Signed [facility] Subjective Wendy De Jesus is a 39 year old female. Patient presents with: Suture Removal: left forearm x 10 days, 1 suture Patient came in to have sutures removed. Patient had it placed 10 days ago. Patient has not had any trouble with the site. The history is provided by the patient. No school speech language pathologist was used. Suture Removal Review of Systems [...] 01/11/2025 5:06 PM Performed by: Itzel Linder APRN.MOLD INJECTOR Authorized by: Itzel Linder APRN.MOLD INJECTOR Location: Body area: Upper extremity Location details: [...] removal [Z48.02] Order(s):Suture Removal [PRO95] Order #: [id number] Prescriptions as of 01/11/2025 - amoxicillin-clavulanate potassium (AUGMENTIN) 875-125 mg per tablet - multivitamin (DAILY MULTIVITAMIN) ORAL tablet Take one(1) tablet daily. Problem List As Of Date 01/11/2025 Noted Resolved Supervision of Normal First [Z34.00] 02/05/2007 07/26/2010 IUD surveillance [Z30.431] 11/19/2010 12/10/2011 MS (multiple sclerosis) [G35] 03/27/2012 Biliary colic [K80.50] 06/22/2013 Cholelithiasis [K80.20] 06/22/2013 Encounter Status:Closed by ITZEL LINDER on 01/11/25 Normal [facility] Suture Removalon 01-11-2025 Itzel Linder APRN.MOLD INJECTOR 01/11/2025 5:08 PM SUTURE REMOVAL Date/Time: 01/11/2025 5:06 PM Performed by: Itzel Linder APRN.MOLD INJECTOR Authorized by: Itzel Linder APRN.MOLD INJECTOR Location: Body area: Upper extremity Location details: Left lower arm Procedure details: Wound appearance: Clean Suture not placed during surgical procedure [facility] Emergency Department Summary on 01-01-2025 Emergency Department Summary [facility] Medical Records Department [address] [place] [id number] Emergency Department Summary 01/01/25 MR#: [id number] Acct: [id number] Name: WENDY DE JESUS Rep #: [id number] : 1985 39 From: Michael Waterman MD [...] Skin sutures Irrigated (ml): 50 Number of Sutures/[place]: 1 Suture Information: Ethilon, Horizontal, Mattress and [...] Rx I (more content not included)... Normal [facility] IgG Index AND Synthesis Rate on 08-02-2024 Albumin [Mass/Vol] 4.3 g/dL Normal 3.9-4.9 [facility] Comment on above: Order Comment: Test( s) 265518-Pruhyu Basic Protein, CSFresults are labeled for research purposes only by theassay's car mover. The performance characteristics ofthis assay have not been established by the car mover.The result should not be used for treatment or fordiagnostic purposes without confirmation of the diagnosisby another medically established diagnostic product orprocedure. The performance characteristics were determinedby [facility]. Performed By: #### L 500.4050, L100.0100 #### [facility] [address] [facility] [id number] CSF ALBUMIN 13 mg/dL Normal 7-29 [facility] Comment on above: Order Comment: Test( s) 327573-Ceofyf Basic Protein, CSFresults are labeled for research purposes only by theassay's car mover. The performance characteristics ofthis assay have not been established by the car mover.The result should not be used for treatment or fordiagnostic purposes without confirmation of the diagnosisby another medically established diagnostic product orprocedure. The performance characteristics were determinedby [facility]. Performed By: #### L 500.4050, L100.0100 #### [facility] [address] [facility] [id number] CSF IgG 4.5 mg/dL Normal 0.0-6.7 [facility] Comment on above: Order Comment: Test( s) 450297-Caltgu Basic Protein, CSFresults are labeled for research purposes only by theassay's car mover. The performance characteristics ofthis assay have not been established by the car mover.The result should not be used for treatment or fordiagnostic purposes without confirmation of the diagnosisby another medically established diagnostic product orprocedure. The performance characteristics were determinedby [facility]. Performed By: #### L 500.4050, L100.0100 #### [facility] [address] [place], [address] CSF IgG INDEX 1.3 Abnormal 0.0-0.7 [facility] Comment on above: Order Comment: Test( s) 413184-Lfvjwb Basic Protein, CSFresults are labeled for research purposes only by theassay's car mover. The performance characteristics ofthis assay have not been established by the car mover.The result should not be used for treatment or fordiagnostic purposes without confirmation of the diagnosisby another medically established diagnostic product orprocedure. The performance characteristics were determinedby [facility]. Performed By: #### L 500.4050, L100.0100 #### [facility] [address] [place], [place], [id number] CSF IgG SYN RAT 10.6 mg/day Abnormal -9.9 TO +3.3 [facility] Comment on above: Order Comment: Test( s) 984579-Zoceem Basic Protein, CSFresults are labeled for research purposes only by theassay's car mover. The performance characteristics ofthis assay have not been established by the car mover.The result should not be used for treatment or fordiagnostic purposes without confirmation of the diagnosisby another medically established diagnostic product orprocedure. The performance characteristics were determinedby [facility]. Performed By: #### L 500.4050, L100.0100 #### [facility] [address] [place], [place], [id number] CSF:SER ALB IND 3 Normal 0-8 [facility] Comment on above: Order Comment: Test( s) 559474-Eykjeg Basic Protein, CSFresults are labeled for research purposes only by theassay's car mover. The performance characteristics ofthis assay have not been established by the car mover.The result should not be used for treatment [...] Performed By: #### L 500.4050, L100.0100 #### [facility] [address] [place], [address] IGG:ALB RATIO 0.35 Abnormal 0.00-0.25 [facility] Comment on above: Order Comment: Test( s) 707623-Unmpad Basic Protein, CSFresults are labeled for research purposes only by theassay's car mover. The performance characteristics ofthis assay have not been established by the car mover.The result should not be used for treatment or fordiagnostic purposes without confirmation of the diagnosisby another medically established diagnostic product orprocedure. The performance characteristics were determinedby [facility]. Performed By: #### L 500.4050, L100.0100 #### [facility] [address] [place], [address] SERUM IgG 1110 mg/dL Normal 586-1602 [facility] Comment on above: Order Comment: Test( s) 796504-Sqkntk Basic Protein, CSFresults are labeled for research purposes only by theassay's car mover. The performance characteristics ofthis assay have not been established by the car mover.The result should not be used for treatment or fordiagnostic purposes without confirmation of the diagnosisby another medically established diagnostic product orprocedure. The performance characteristics were determinedby [facility]. Performed By: #### L 500.4050, L100.0100 #### [facility] [address] [place], [address] Myelin Basic Protein, MBPon 08-02-2024 MBP CSF 65.6 ng/mL Abnormal 0.0-3.7 [facility] Comment on above: Order Comment: Test( s) 349934-Epujso Basic Protein, CSF results are labeled for research purposes only by the assay's car mover. The performance characteristics of this assay have not been established by the car mover. The result should not be used for treatment or for diagnostic purposes without confirmation of the diagnosis by another medically established diagnostic product or procedure. The performance characteristics were determined by [facility]. Result Comment: Re sults verified by repeat testing Performed at: [facility] [address] [id number] Medical Insurance Claims Specialist: Axel Ho PhD, Phone: [phone] Performed at: [facility] [address] [id number] Medical Insurance Claims Specialist: Enrique Figueroa MD, Phone: [phone] Performed By: #### L 801.33232, L804.5000, L804.2600 #### [facility] [address] [place], [address] Oligoclonal Bands Panelon OLIG BAND COM Comment Normal . [facility] Comment on above: Order Comment: Test( s) 084000-Fulznt Basic Protein, CSF results are labeled for research purposes only by the assay's car mover. The performance characteristics of this assay have not been established by the car mover. The result should not be used for treatment or for diagnostic purposes without confirmation of the diagnosis by another medically established diagnostic product or procedure. The performance characteristics were determined by [employer]. Result Comment: Ten (10) oligoclonal bands were [...] and immunoblotting methodology. Performed By: #### L 801.28700, L804.5000, L804.2600 #### [facility] [address] [place], [address] DIONNE Virus CSF DNA, PCRon 06-28 JCV CSF DNA PCR Normal [facility] Comment on above: Result Comment: TEST RESULTS LIMITS DIONNE Virus DNA, PCR (CSF) Negative Negative No JCV DNA detected This test was developed and its performance characteristics determined by [facility]. It has not been cleared or approved by the Food and Drug Administration. The FDA has determined that such clearance or approval is not necessary. TESTING PERFORMED AT [facility]. ORIGINAL REPORT ON FILE IN LAB CONTAINS ADDITIONAL TEST SITE INFORMATION. Performed By: #### L 500.4100 #### [facility] [address] [place], [place], [address] VDRL Cerebrospinal Fluidon 0 07-22-2024 VDRL, CSF Non-Reactive Normal Non Daysi:<1:1 [facility] Comment on above: Performed By: #### L 506.1000, L801.5410, L3890.6005, L801.1545, L801.1541, L7000.8700, L801.1547 ####[facility] [address] [place], [place], [address] Lyme Antibodies,W Bloton LYME IgG INTERP Negative Normal . [facility] Comment on above: Result Comment: Posi tive: 5 of the following Borrelia-specific bands: 18,23,28,30,39,41,45,58, 66, and 93. Negative: No bands or banding patterns which do not meet positive criteria. Performed By: #### L 501.5200 #### [facility] [address] [place], [address] LYME IgM INTERP Negative Normal . [facility] Comment on above: Result Comment: Note [...] are those recommended by CDC/ASTPHLD. p23=Osp C, k72=ocmorkpja Note: Sera from individuals with the following may cross react in the Lyme Line Blot assays: other spirochetal diseases (periodontal disease, leptospirosis, relapsing fever, yaws, and pinta); connective autoimmune (Rheumatoid Arthritis and Systemic Lupus Erythematosus and also individuals with Antinuclear Antibody); other infections (Dresser Spotted Fever; Levy-Christopher Virus, and Cytomegalovirus). Please Note: Lyme immunoblot alone is not recommended for the diagnosis of Lyme disease. Current guidelines recommend the use of a two-tiered approach to Lyme serology testing to improve the sensitivity and specificity of testing. [facility] offers test code 388690 Lyme Disease Serology with Reflex to aid in the diagnosis of Lyme Disease. Performed By: #### L 501.5200 #### [facility] [address] [place], [address] P18 Ab Absent Normal . [facility] Comment on above: Performed By: #### L 501.5200 #### [facility] [address] [place], [address] P23 Ab Absent Normal . [facility] Comment on above: Performed By: #### L 501.5200 #### [facility] [address] [place], [address] P28 Ab Absent Normal . [facility] Comment on above: Performed By: #### L 501.5200 #### [facility] [address] [place], [address] P30 Ab Absent Normal . [facility] Comment on above: Performed By: #### L 501.5200 #### [facility] [address] [place], [address] P39 Ab Absent Normal . [facility] Comment on above: Performed By: #### L 501.5200 #### [facility] [address] [place], [address] P41 Ab Present Abnormal . [facility] Comment on above: Performed By: #### L 501.5200 #### [facility] [address] [place], [address] P45 Ab Absent Normal . [facility] Comment on above: Performed By: #### L 501.5200 #### [facility] [address] [place], [address] P58 Ab Absent Normal . [facility] Comment on above: Performed By: #### L 501.5200 #### [facility] [address] [place], [address] P66 Ab Absent Normal . [facility] Comment on above: Performed By: #### L 501.5200 #### [facility] [address] [place], [address] P93 Ab Absent Normal . [facility] Comment on above: Performed By: #### L 501.5200 #### [facility] [address] [place], [address] Lyme Screen W/Reflex WBon LYME SCREEN Ab Negative Normal Negative [facility] Comment on above: Result Comment: Lyme [...] to 14 days is recommended. Performed at: [address] [id number] Medical Insurance Claims Specialist: Enrique Figueroa MD, Phone: [phone] Performed at: [address] [id number] Medical Insurance Claims Specialist: Axel Ho PhD, Phone: [phone] Performed By: #### L 500.4100 #### [facility] [address] [place], [place], [address] Miscellaneous Lab Procedure 07-20-2024 [facility] Comment on above: Order Comment: [id number] ANTI-MOG/ SERUM RED TOP/ [id number] ANTI-MOG/ SERUM RED TOP/ [id number] ANTI-MOG/ SERUM RED TOP/ RT Result Comment: TEST RESULTS LIMITS MOG Antibody,Cell-based IFA A, Negative Negative TESTING PERFORMED AT [facility]. ORIGINAL REPORT ON FILE IN LAB CONTAINS ADDITIONAL TEST SITE INFORMATION. Performed By: #### L 506.1000, L801.5410, L3890.6005, L801.1545, L801.1541, L7000.8700, L801.1547 ####[facility] [address] [place], [place], [id number] [facility] Comment on above: Order Comment: [id number] INTERLEUKIN-2/ SERUM/RF Result Comment: TEST RESULTS LIMITS Interleukin-2, Serum <31.2 pg/mL 0.0-31.2 Comments This test was developed and its performance characteristics determined by [facility]. It has not been cleared or approved by the Food and Drug Administration. TESTING PERFORMED AT [facility]. ORIGINAL REPORT ON FILE IN LAB CONTAINS ADDITIONAL TEST SITE INFORMATION. Performed By: #### L 506.1000, L801.5410, L3890.6005, L801.1545, L801.1541, L7000.8700, L801.1547 ####[facility] [address] [place], [address] Bedside Glucoseon 07-19-2024 FINGERSTICK GLU 108 mg/dL High 74-106 [facility] Comment on above: Result Comment: MELLISA HARSHALENT OF PATIENT CARE PER NURSING PROTOCOL Performed By: #### L 501.080 #### [facility] [address] [place], [address] Performed By: #### L 501.5200 #### [facility] [address] [place], [address] Miscellaneous Lab Procedureo n 07-19-2024 [facility] Normal [facility] Comment on above: Order Comment: [id number] 210 ANTI-NMO/ SERUM/ RF Result Comment: TEST RESULTS LIMITS NMO IgG Autoantibodies <1.5 U/mL 0.0-3.0 Negative: 0.0 - 3.0 Positive: >3.0 TESTING PERFORMED AT [facility]. ORIGINAL REPORT ON FILE IN LAB CONTAINS ADDITIONAL TEST SITE INFORMATION. Performed By: #### L 506.1000, L801.5410, L3890.6005, L801.1545, L801.1541, L7000.8700, L801.1547 ####[facility] [address] [place], [address] Miscellaneous Lab Procedureo n 07-18-2024 [facility] Normal [facility] Comment on above: Order Comment: [id number] HTLV1/ SERUM/ RF Result Comment: TEST RESULTS LIMITS HTLV-I/II Antibodies, Qual Negative Negative TESTING PERFORMED AT [facility]. ORIGINAL REPORT ON FILE IN LAB CONTAINS ADDITIONAL TEST SITE INFORMATION. Performed By: #### L 500.4100 #### [facility] [address] [place], [address] Bedside Glucoseon 07-17-2024 FINGERSTICK GLU 147 mg/dL High 74-106 [facility] Comment on above: Result Comment: MELLISA SWAIN OF PATIENT CARE PER NURSING PROTOCOL Performed By: #### L 500.4050, L100.0100 #### [facility] [address] [place], [address] Discharge Instructionon 06-28 Discharge Instruction [facility] Medical Records Department [address] [place] [address] Instructions for Home/Discharge Instructions 07/17/24 1030 MR#: [id number] Acct: [id number] Name: WENDY DE JESUS Rep #: [id number] : 1985 39 From: Denny Bennett MD [...] can be placed): Home, Self Care 07/17/24 [facility] Denny Bennett MD CC: Gregoria Dominguez; Stacey [...] Nava DO; Christel López MD Signed Normal [facility] NARESH w/ Reflex Mult Confirmon 07-16-2024 NARESH,DIRECT Negative Normal Negative [facility] Comment on above: Result Comment: Perf ormed at: CB - [facility] [address] [id number] Medical Insurance Claims Specialist: Axel Ho PhD, Phone: [phone] Performed By: #### L 500.5327 #### [facility] [address] [facility] [id number] Bedside Glucoseon 07-16-2024 FINGERSTICK GLU 193 mg/dL High [address] [place] [address] Comment on above: Result Comment: MELLISA GEMENT OF PATIENT CARE PER NURSING PROTOCOL Performed By: #### L 501.080 #### [facility] [address] [facility] [id number] FINGERSTICK GLU 133 mg/dL High [address] [facility] Comment on above: Result Comment: MELLISA GEMENT OF PATIENT CARE PER NURSING PROTOCOL Performed By: #### L 500.4050, L100.0100 #### [facility] [address] [place], [address] FINGERSTICK GLU 150 mg/dL High 74-106 [facility] Comment on above: Result Comment: MELLISA GEMENT OF PATIENT CARE PER NURSING PROTOCOL Performed By: #### L 501.080 #### [facility] [address] [place], [address] Cerebral Spinal Fluid Cultur michelle 07-16-2024 [facility] No growth in 72 hours. Normal [facility] Comment on above: Performed By: #### L 200.0100, L501.1600, M100.2300, L350.1000, M100.2000, L501.0400 ####[facility] [address] [place], [address] Spinal Fluid Cell Count+Diff on 07-16-2024 PATH REV May follow Normal [facility] Comment on above: Result Comment: Nega tive for malignant cells. Kyle Freeman M.D. 07/16/24 AMENDED REPORT 07/16/24 1403 PATH REV previously reported as: May follow Performed By: #### L 200.0100, L501.1600, M100.2300, L350.1000, M100.2000, L501.0400 ####[facility] [address] [place], [address] Bedside Glucoseon 07-15-2024 FINGERSTICK GLU 217 mg/dL High 74-106 [facility] Comment on above: Result Comment: MELLISA GEMENT OF PATIENT CARE PER NURSING PROTOCOL Performed By: #### L 501.5200 #### [facility] [address] [place], [address] FINGERSTICK GLU 143 mg/dL High -106 [facility] Comment on above: Result Comment: MELLISA GEMENT OF PATIENT CARE PER NURSING PROTOCOL Performed By: #### L 501.5200 #### [facility] [address] [place], [address] FINGERSTICK GLU 115 mg/dL High 74-106 [facility] Comment on above: Result Comment: MELLISA GEMENT OF PATIENT CARE PER NURSING PROTOCOL Performed By: #### L 501.080 #### [facility] [address] [place], [address] FINGERSTICK GLU 167 mg/dL High 74-106 [facility] Comment on above: Result Comment: MELLISA GEMENT OF PATIENT CARE PER NURSING PROTOCOL Performed By: #### L 501.080 ####[facility] [address] [place], [address] FINGERSTICK GLU 193 mg/dL High 74-106 [facility] Comment on above: Result Comment: MELLISA GEMENT OF PATIENT CARE PER NURSING PROTOCOL Performed By: #### L 501.080 #### [facility] [address] [place], [address] Cytology, Body Fluid / CSFon 07-15-2024 CYTOLOGY,BF/CSF SEE PATHOLOGY REPORT Normal [facility] Comment on above: Result Comment: Spec imen submitted to Anatomical Pathology Department for testing. Performed By: #### L 200.0100, L501.1600, M100.2300, L350.1000, M100.2000, L501.0400 ####[facility] [address] [place], [address] Glucose Spinal Fluidon 07-15 GLU SPINAL FLD 101 mg/dL High 40-75 [facility] Comment on above: Performed By: #### L 501.080 #### [facility] [address] [place], [address] Gram Stainon 07-15-2024 GS Centrifuged Specimen ? Culture performed on centrifuged specimen Gram Stain No organisms seen 1+ White Blood Cells Normal [facility] Comment on above: Performed By: #### L 501.080 #### [facility] [address] [place], [address] Pap Stain (control)on 2023 Pap Stain (control) --- Patient Age/Sex Location Account Attending Physician WENDY DE JESUS February [facility] [id number] Dr. Jesse Lassiter MD Specimen: [id number] Received: 07/16/24 Status: SHAHEEDClay Khurram Num: [id number] Spec Type: CYSPIN FL Subm Dr: Dr. [...] including cell block. Mr 07/16/2024 TC:5 CPT: 60467,76856 Signed (signature on file) Dr. Mainor Manley, DO 07/16/24 1337 Normal [facility] Comment on above: Performed By: #### L 500.4050, L100.0100 #### [facility] [address] [place], [place], [address] Partial Thromboplast Timeon 07-15-2024 aPTT Coag (Bld) [Time] 23.3 s Low 24.1-36.2 [facility] Comment on above: Performed By: #### L 501.5200 #### [facility] [address] [place], [place], [address] Procedure Reporton 4 Procedure Report [facility] Medical Records Department [address] [place] [address] Procedure Report 07/15/24 1519 MR#: [id number] Acct: [id number] Name: WENDY DE JESUS Rep #: [id number] : 1985 39 From: Barbraa Villalobos MATERIAL ANALYST-C PCP: Dr. Filippo Huang, DO Status:ADM IN Location: [place] [address] Procedure Report Date of Procedure: 07/15/24 Assessment [...] lumbar puncture. Procedures Radiology Radiology Xray Procedures: 94742 Lumbar Puncture Dx Multi Select Codes Radiology Rad Xray Procedures: 88177-74 Fluoroscopic guidance for needle placement 07/15/24 1526 Cosigner Signature (if applicable): CC: RIMA Villalobos; Dr. Filippo Huang DO Signed Normal [facility] Protein Spinal Fluidon 07-15 PROTEIN CSF 31.0 mg/dL Normal 15.0-45.0 [facility] Comment on above: Performed By: #### L 501.080 #### [facility] [place], [address] Prothrombin Time w/INRon INR Coag (PPP) [Relative time] 1.1 {INR} Normal [facility] Comment on above: Performed By: #### L 501.5200 #### [facility] [address] [place], [address] PT Coag (PPP) [Time] 14.4 s Normal 11.7-14.9 [facility] Comment on above: Performed By: #### L 501.5200 #### [facility] [address] [place], [address] Basic Metabolic Profile (BMP )on 07-14-2024 BUN/CRE 18.0 RATIO Normal 10-20 [facility] Comment on above: Performed By: #### L 500.4100 #### [facility] [address] [place], [address] CA,Total 9.4 mg/dL Normal 8.5-10.1 [facility] Comment on above: Performed By: #### L 500.4100 #### [facility] [address] [place], [address] Chloride [Moles/Vol] 108 mmol/L High 98-107 [facility] Comment on above: Performed By: #### L 500.4100 #### [facility] [address] [place], [address] CO2 [Moles/Vol] 26.0 mmol/L Normal 21.0-32.0 [facility] Comment on above: Performed By: #### L 500.4100 #### [facility] [address] [place], [address] Creatinine [Mass/Vol] 0.72 mg/dL Normal 0.55-1.02 [facility] Comment on above: Result Comment: The validity of the calculated GFR GFRAA in patients over 70 years has not been determined. Clinical correlation is essential. Performed By: #### L 500.4100 #### [facility] [address] [place], [address] ECRCL 90.59 ml/min Normal [facility] Comment on above: Performed By: #### L 500.4100 #### [facility] [address] [place], [address] EST GFR - AA 115 mL/min Normal >60 [facility] Comment on above: Result Comment: Afri can [place] GFR Calc Performed By: #### L 500.4100 #### [facility] [address] [place], [address] GAP 4 Low 5-15 [facility] Comment on above: Performed By: #### L 500.4100 #### [facility] [address] [place], [address] GFR/1.73 sq M.predicted among non-blacks MDRD (S/P/Bld) [Vol rate/Area] 95 mL/min/{1.73_m2} Normal >60 [facility] Comment on above: Result Comment: Non- GFR Calc Performed By: #### L 500.4100 #### [facility] [address] [place], [address] Glucose [Mass/Vol] 88 mg/dL Normal 74-106 [facility] Comment on above: Performed By: #### L 500.4100 #### [facility] [address] [place], [address] Potassium [Moles/Vol] 4.2 mmol/L Normal 3.5-5.1 [facility] Comment on above: Performed By: #### L 500.4100 #### [facility] [address] [place], [address] Sodium [Moles/Vol] 138 mmol/L Normal 136-145 [facility] Comment on above: Performed By: #### L 500.4100 #### [facility] [address] [place], [address] Urea nitrogen [Mass/Vol] 13 mg/dL Normal 7-18 [facility] Comment on above: Performed By: #### L 500.4100 #### [facility] [address] [place], [address] Bedside Glucoseon 07-14-2024 FINGERSTICK GLU 127 mg/dL High 74-106 [facility] Comment on above: Result Comment: MELLISA SWAIN OF PATIENT CARE PER NURSING PROTOCOL Performed By: #### L 501.5200 #### [facility] [address] [place], [address] Folates, (Folic Acid)on 06-27 FOLATES 17.50 ng/mL Normal 3.1-55.4 [facility] Comment on above: Performed By: #### L 500.4100 #### [facility] [address] [place], [address] HIV - WCHon 07-14-2024 HIV Non-Reactive Normal Nonreactive [facility] Comment on above: Performed By: #### L 506.1000, L801.5410, L3890.6005, L801.1545, L801.1541, L7000.8700, L801.1547 ####[facility] [address] [place], [address] Liver Profileon 07-14-2024 Albumin [Mass/Vol] 3.9 g/dL Normal 3.2-5.0 [facility] Comment on above: Performed By: #### L 500.4100 #### [facility] [address] [place], [address] ALK P 49 U/L Normal 45-117 [facility] Comment on above: Performed By: #### L 500.0340 #### [facility] [address] [place], [address] ALT [Catalytic activity/Vol] 41 U/L Normal 13-56 [facility] Comment on above: Performed By: #### L 500.4100 #### [facility] [address] [place], [address] AST [Catalytic activity/Vol] 21 U/L Normal 15-37 [facility] Comment on above: Performed By: #### L 500.4100 #### [facility] [address] [place], [address] Bilirubin [Mass/Vol] 0.90 mg/dL Normal 0.20-1.00 [facility] Comment on above: Result Comment: For patients on eltrombopag therapy, use of Dimension Neptune TBIL is not recommended. Performed By: #### L 500.4100 #### [facility] [address] [place], [address] Bilirubin.direct [Mass/Vol] 0.27 mg/dL Normal 0.00-0.30 [facility] Comment on above: Performed By: #### L 500.4100 #### [facility] [address] [place], [address] Globulin (S) [Mass/Vol] 3.5 g/dL Normal 2.2-4.2 [facility] Comment on above: Performed By: #### L 500.4100 #### [facility] [address] [place], [address] T PROT 7.4 g/dL Normal 6.4-8.2 [facility] Comment on above: Performed By: #### L 500.4100 #### [facility] [address] [place], [address] MR/CON.PCM.NEon 07-14-2024 MR/CON.PCM.NE [facility] Medical Records Department [address] [place] [address] Consultation - Neurology 07/14/24 1252 MR#: [id number] Acct: [id number] Name: WENDY DE JESUS Rep #: [id number] : 1985 39 From: Grace Queen MD PCP: Dr. Filippo Huang, DO Status:ADM IN Location: [place] [address] Assessment and Plan: Neuro Assessment/Plan WENDY DE [...] 1-3 months. Pt has request followup in [place]. Recommend getting assistance from Case Management to see if patient can have an appointment set up prior to leaving. Patient can followup with [facility] - will place a referral in our system for followup within the next month in case patient is unable to find a provider in [place]. Will continue to follow patient daily and [...] some arm (more content not included)... Normal [facility] Thyroid Stim Hormone (TSH)on 07-14-2024 TSH 2.130 uIU/mL Normal 0.358-3.740 [facility] Comment on above: Performed By: #### L 500.4100 #### [facility] [address] [place], [address] Urine Cultureon 07-14-2024 URC Mixed Gram Positive Organisms [place] Count 11,000-25,000 MIXC Mixed contaminants. Submit a new specimen if indicated. Normal [facility] Comment on above: Performed By: #### L 500.4050, L100.0100 #### [facility] [address] [place], [address] Vitamin B12on 07-14-2024 Cobalamin (Vitamin B12) [Mass/Vol] 683 pg/mL Normal 211-911 [facility] Comment on above: Performed By: #### L 500.4100 #### [facility] [address] [place], [place], [address] Vitamin D,25 Hydroxyon 07-14 Vitamin D 25-OH 26.2 ng/mL Normal [facility] Comment on above: Result Comment: Valery min D 25(OH) Status Range Deficiency <20 ng/mL (50nmol/L) Insufficiency 20 - 30 ng/mL (50 - 75 nmol/L) Sufficiency 30 - 100 ng/mL (75 - 250 nmol/L) Toxicity >100 ng/mL (>250 nmol/L) Performed By: #### L 506.1000, L801.5410, L3890.6005, L801.1545, L801.1541, L7000.8700, L801.1547 ####[facility] [address] [place], [address] Brain W/WO Contraston 2023 Brain W/WO Contrast [facility] Imaging Services [address] [place] [address] Brain W/WO Contrast MR#: [id number] Acct: [id number] Name: WENDY DE JESUS Rep #: [id number] : 1985 F 39 From: Polo sagastume MD PCP: Dr. Filippo Huang, DO Status: ADM IN Study: Brain W/WO Contrast Date of Exam: 07/13/24 Exam# [id number] Ordering Dr: [place] [id number] EXAM: MR HEAD WITHOUT AND WITH INTRAVENOUS [...] Filippo Huang DO; Dr. Jesse Lassiter MD Adult Crossing Guard: Signed Normal [facility] Brain/Head without Contrasto n 07-13-2024 Brain/Head without Contrast [facility] Imaging Services [address] [place] [address] Brain/Head without Contrast MR#: [id number] Acct: [id number] Name: WENDY DE JESUS Rep #: [id number] : 1985 F 39 From: Derrick schumacher MD PCP: Dr. Filippo Huang DO Status: REG ER Study: Brain/Head without Contrast Date of Exam: 06/27 05/19 Exam# [id number] Ordering [place]: [place] [id number] STUDY: CT BRAIN WITHOUT CONTRAST REASON FOR [...] 8:47 EDT Reading Location ID and State: [address] [place] [address] , Service support , CC: Dr. Michael Waterman MD; Dr. Filippo Huang DO Adult Crossing Guard: Signed Normal [facility] CBC W/Diff, Automatedon 06-27 Absolute Lymph 1.93 X10 3/uL Normal 0.83-4.51 [facility] Comment on above: Performed By: #### L 500.4050, L100.0100 #### [facility] [address] [place], [place], [address] Absolute Neut 7.5 X10 3/uL Normal 2.0-7.7 [facility] Comment on above: Performed By: #### L 500.4050, L100.0100 #### [facility] [address] [place], [address] Basophils/100 WBC (Bld) 0.8 % Normal 0-1 [facility] Comment on above: Performed By: #### L 500.4050, L100.0100 #### [facility] [address] [place], [address] Eosinophils/100 WBC (Bld) 0.9 % Normal 0-5 [facility] Comment on above: Performed By: #### L 500.4050, L100.0100 #### [facility] [address] [place], [address] Erythrocyte distribution width (RBC) [Ratio] 11.7 % Normal 11.6-14.6 [facility] Comment on above: Performed By: #### L 500.4050, L100.0100 #### [facility] [address] [place], [address] Hematocrit (Bld) [Volume fraction] 43.0 % Normal 37-47 [facility] Comment on above: Performed By: #### L 500.4050, L100.0100 #### [facility] [address] [place], [address] Hemoglobin (Bld) [Mass/Vol] 14.4 g/dL Normal 12.0-15.0 [facility] Comment on above: Performed By: #### L 500.4050, L100.0100 #### [facility] [address] [place], [address] IG% 0.600 Normal 0.0-0.9 [facility] Comment on above: Result Comment: IG% - Immature Granulocytes (promyelocytes, myelocytes and metamyelocytes) > 1% indicates that a LEFT SHIFT is Present. Performed By: #### L 500.4050, L100.0100 #### [facility] [address] [place], [address] Lymphocytes/100 WBC (Bld) 18.1 % Low 19-41 [facility] Comment on above: Performed By: #### L 500.4050, L100.0100 #### [facility] [address] [place], [address] MCH (RBC) [Entitic mass] 30.7 pg Normal 27.0-32.0 [facility] Comment on above: Performed By: #### L 500.4050, L100.0100 #### [facility] [address] [place], [address] MCHC (RBC) [Mass/Vol] 33.5 g/dL Normal 32-36 [facility] Comment on above: Performed By: #### L 500.4050, L100.0100 #### [facility] [address] [place], [address] MCV (RBC) [Entitic vol] 91.7 fL Normal 81-99 [facility] Comment on above: Performed By: #### L 500.4050, L100.0100 #### [facility] [address] [place], [address] Monocytes/100 WBC (Bld) 9.4 % Normal 0-10 [facility] Comment on above: Performed By: #### L 500.4050, L100.0100 #### [facility] [address] [place], [address] Neutrophils/100 WBC (Bld) 70.2 % High 47-70 [facility] Comment on above: Performed By: #### L 500.4050, L100.0100 #### [facility] [address] [place], [address] Nucleated RBC (Bld) [#/Vol] 0 10*3/uL Normal 0-5 [facility] Comment on above: Performed By: #### L 500.4050, L100.0100 #### [facility] [address] [place], [address] Platelet mean volume (Bld) [Entitic vol] 9.5 fL Normal 6.2-12.0 [facility] Comment on above: Performed By: #### L 500.4050, L100.0100 #### [facility] [address] [place], [address] Platelets (Bld) [#/Vol] 437 10*3/uL Normal 150-450 [facility] Comment on above: Performed By: #### L 500.4050, L100.0100 #### [facility] [address] [place], [address] RBC (Bld) [#/Vol] 4.69 10*6/uL Normal 4.2-5.4 [facility] Comment on above: Performed By: #### L 500.4050, L100.0100 #### [facility] [address] [place], [address] RDW SD 39.6 fl Normal 35.1-43.9 [facility] Comment on above: Performed By: #### L 500.4050, L100.0100 #### [facility] [address] [place], [address] WBC (Bld) [#/Vol] 10.7 10*3/uL Normal 4.4-11.0 [facility] Comment on above: Performed By: #### L 500.4050, L100.0100 #### [facility] [address] [place], [address] Comprehensive Metabolic Prof ilon 07-13-2024 Albumin [Mass/Vol] 4.0 g/dL Normal 3.2-5.0 [facility] Comment on above: Performed By: #### L 500.4050, L100.0100 #### [facility] [address] [place], [address] Albumin/Globulin [Mass ratio] 1.1 {ratio} Normal 0.9-2.4 [facility] Comment on above: Performed By: #### L 500.4050, L100.0100 #### [facility] [address] [place], [address] ALK P 52 U/L Normal 45-117 [facility] Comment on above: Performed By: #### L 500.4050, L100.0100 #### [facility] [address] [place], [address] ALT [Catalytic activity/Vol] 29 U/L Normal 13-56 [facility] Comment on above: Performed By: #### L 500.4050, L100.0100 #### [facility] [address] [place], [address] AST [Catalytic activity/Vol] 20 U/L Normal 15-37 [facility] Comment on above: Performed By: #### L 500.4050, L100.0100 #### [facility] [address] [place], [address] Bilirubin [Mass/Vol] 1.10 mg/dL High 0.20-1.00 [facility] Comment on above: Result Comment: For patients on eltrombopag therapy, use of Dimension Neptune TBIL is not recommended. Performed By: #### L 500.4050, L100.0100 #### [facility] [address] [place], [address] BUN/CRE 16.7 RATIO Normal 10-20 [facility] Comment on above: Performed By: #### L 500.4050, L100.0100 #### [facility] [address] [place], [address] CA,Total 9.5 mg/dL Normal 8.5-10.1 [facility] Comment on above: Performed By: #### L 500.4050, L100.0100 #### [facility] [address] [place], [address] Chloride [Moles/Vol] 107 mmol/L Normal 98-107 [facility] Comment on above: Performed By: #### L 500.4050, L100.0100 #### [facility] [address] [place], [address] CO2 [Moles/Vol] 21.0 mmol/L Normal 21.0-32.0 [facility] Comment on above: Performed By: #### L 500.4050, L100.0100 #### [facility] [address] [place], [address] Creatinine [Mass/Vol] 0.78 mg/dL Normal 0.55-1.02 [facility] Comment on above: Result Comment: The validity of the calculated GFR GFRAA in patients over 70 years has not been determined. Clinical correlation is essential. Performed By: #### L 500.4050, L100.0100 #### [facility] [address] [place], [address] ECRCL 90.53 ml/min Normal [facility] Comment on above: Performed By: #### L 500.4050, L100.0100 #### [facility] [address] [place], [address] EST GFR - AA 106 mL/min Normal >60 [facility] Comment on above: Result Comment: Afri can [place] GFR Calc Performed By: #### L 500.4050, L100.0100 #### [facility] [address] [place], [address] GAP 12 Normal 5-15 [facility] Comment on above: Performed By: #### L 500.4050, L100.0100 #### [facility] [address] [place], [address] GFR/1.73 sq M.predicted among non-blacks MDRD (S/P/Bld) [Vol rate/Area] 88 mL/min/{1.73_m2} Normal >60 [facility] Comment on above: Result Comment: Non- GFR Calc Performed By: #### L 500.4050, L100.0100 #### [facility] [address] [place], [address] Globulin (S) [Mass/Vol] 3.6 g/dL Normal 2.2-4.2 [facility] Comment on above: Performed By: #### L 500.4050, L100.0100 #### [facility] [address] [place], [address] Glucose [Mass/Vol] 79 mg/dL Normal 74-106 [facility] Comment on above: Performed By: #### L 500.4050, L100.0100 #### [facility] [address] [place], [address] Potassium [Moles/Vol] 4.0 mmol/L Normal 3.5-5.1 [facility] Comment on above: Performed By: #### L 500.4050, L100.0100 #### [facility] [address] [place], [address] Sodium [Moles/Vol] 140 mmol/L Normal 136-145 [facility] Comment on above: Performed By: #### L 500.4050, L100.0100 #### [facility] [address] [place], [address] T PROT 7.6 g/dL Normal 6.4-8.2 [facility] Comment on above: Performed By: #### L 500.4050, L100.0100 #### [facility] [address] [place], [address] Urea nitrogen [Mass/Vol] 13 mg/dL Normal 7-18 [facility] Comment on above: Performed By: #### L 500.4050, L100.0100 #### [facility] [address] [place], [address] Emergency Department Summary on 07-13-2024 Emergency Department Summary [facility] Medical Records Department [address] [place] [address] Emergency Department Summary 07/13/24 MR#: [id number] Acct: [id number] Name: WENDY DE JESUS Rep #: [id number] : 1985 39 From: Michael Waterman MD [...] Biceps (C5, (more content not included)... Normal [facility] H AND P Exam - Hospitaliston 07-13-2024 H&P Exam - Hospitalist [facility] Medical Records Department [address] [place] [address] H P Exam - Hospitalist 07/13/24 1304 MR#: [id number] Acct: [id number] Name: WENDY DE JESUS Rep #: [id number] : 1985 39 From: Jesse Lassiter MD PCP: Dr. Filippo Huang, DO Status:ADM IN Location: [facility] [id number] HPI - General General Date of Admission: [...] Appropriate. Results (more content not included)... Normal [facility] Lipid Profileon 07-13-2024 Cholesterol [Mass/Vol] 127 mg/dL Normal 200 [facility] Comment on above: Result Comment: <200 mg/dL Desirable 200-240 mg/dL Borderline >240 mg/dL High Risk Performed By: #### L 500.4100 #### [facility] [address] [place], [address] Cholesterol in HDL [Mass/Vol] 57 mg/dL Normal [facility] Comment on above: Result Comment: The drugs N-Acetylcysteine and Metamizole may falsely depress this assay. Reference Range HDL <40 mg/dL Low HDL Cholesterol HDL >or= 60 mg/dL High HDL Cholesterol Performed By: #### L 500.4100 #### [facility] [address] [place] [place], [address] Cholesterol in LDL [Mass/Vol] 54 mg/dL Normal 0-130 [facility] Comment on above: Performed By: #### L 500.4100 #### [facility] [address] [place], [address] Cholesterol in VLDL [Mass/Vol] 16 mg/dL Normal 5-40 [facility] Comment on above: Performed By: #### L 500.4100 #### [facility] [address] [place], [address] Triglyceride [Mass/Vol] 81 mg/dL Normal [facility] Comment on above: Result Comment: The drugs N-Acetylcysteine and Metamizole may falsely depress this assay. Serum Triglycerides Reference Interval Normal <150 mg/dL Borderline high 150 - 199 mg/dL High 200 - 499 mg/dL Very High > or = 500 mg/dL Performed By: #### L 500.4100 #### [facility] [address] [place], [address] Magnesiumon 07-13-2024 Magnesium [Mass/Vol] 2.0 mg/dL Normal 1.6-2.6 [facility] Comment on above: Performed By: #### L 501.5200 #### [facility] [address] [place], [address] Spine Cervical W/WO Contrast on 07-13-2024 Spine Cervical W/WO Contrast [facility] Imaging Services [address] [place] [address] Spine Cervical W/WO Contrast MR#: [id number] Acct: [id number] Name: WENDY DE JESUS Rep #: [id number] : 1985 F 39 From: Meek Belcher PCP: Dr. Filippo Huang, DO Status: ADM IN Study: Spine Cervical W/WO Contrast Date of Exam: Exam# [id number] Ordering Dr: [place] [id number] EXAM: MR CERVICAL SPINE WITHOUT AND WITH [...] is typically more central. Electronically Signed: Meek iWlson MD at 3:55 EDT , CC: Dr. Filippo Huang DO; Dr. Jesse Lassiter MD Adult Crossing Guard: Signed Normal [facility] Spine Thoracic W/WO Contrast on 07-13-2024 Spine Thoracic W/WO Contrast [facility] Imaging Services [address] [place] [address] Spine Thoracic W/WO Contrast MR#: [id number] Acct: [id number] Name: WENDY DE JESUS Rep #: [id number] : 1985 F 39 From: Vladimir Macias MD PCP: Dr. Filippo Huang DO Status: ADM IN Study: Spine Thoracic W/WO Contrast Date of Exam: Exam# [id number] Ordering [place]: [place] [id number] INDICATION: Numbness across mid abdomen, suspected MS [...] Filippo Huang DO; Dr. Jesse Lassiter MD Adult Crossing Guard: Signed Normal [facility] Urinalysis, Completeon 07-13 AMORPHOUS 1+ Normal [facility] Comment on above: Order Comment: CLEAN CATCH Performed By: #### L 500.4100 #### [facility] [address] [place], [address] Mucus Ql (Urine sed) 1+ /hpf Normal [facility] Comment on above: Order Comment: CLEAN CATCH Performed By: #### L 500.4100 #### [facility] [address] [place], [address] BACTERIA 3+ /hpf Normal None Seen [facility] Comment on above: Order Comment: CLEAN CATCH Performed By: #### L 500.4100 #### [facility] [address] [place], [address] EPI,SQUAMOUS 10-25 SEEN Normal 5-10 [facility] Comment on above: Order Comment: CLEAN CATCH Performed By: #### L 500.4100 #### [facility] [address] [place], [address] WBC 5-10 SEEN Normal 0-5 [facility] Comment on above: Order Comment: CLEAN CATCH Performed By: #### L 500.4100 #### [facility] [address] [place], [address] RBC 0 SEEN Normal 0-5 [facility] Comment on above: Order Comment: CLEAN CATCH Performed By: #### L 500.4100 #### [facility] [address] [place], [address] Urine Drug Screen (VISTA)on 07-13-2024 AMPHETAMINES Negative Normal <1000 ng/mL [facility] Comment on above: Performed By: #### L 501.5200 #### [facility] [address] [place], [address] BARBITIURATES Negative Normal < 200 ng/mL [facility] Comment on above: Performed By: #### L 501.5200 #### [facility] [address] [place], [address] BENZODIAZIPINE Negative Normal < 200 ng/mL [facility] Comment on above: Performed By: #### L 501.5200 #### [facility] [address] [place], [address] COCAINE Negative Normal < 300 ng/mL [facility] Comment on above: Performed By: #### L 501.5200 #### [facility] [address] [place], [address] ECSTACY Negative Normal < 500 ng/mL [facility] Comment on above: Performed By: #### L 501.5200 #### [facility] [address] [place], [address] METHADONE Negative Normal < 300 ng/mL [facility] Comment on above: Performed By: #### L 501.5200 #### [facility] [address] [place], [address] OPIATES Negative Normal < 300 ng/mL [facility] Comment on above: Performed By: #### L 501.5200 #### [facility] [address] [place], [address] PCP Negative Normal < 25 ng/mL [facility] Comment on above: Performed By: #### L 501.5200 #### [facility] [address] [place], [address] THC Negative Normal < 50 ng/mL [facility] Comment on above: Performed By: #### L 501.5200 #### [facility] [address] [place], [address] VISTA UDS PH 5 Normal [facility] Comment on above: Performed By: #### L 501.5200 #### [facility] [address] [place], [place], [address] CORONAVIRUS PCR [CCL]on 05-28 COVID 19 Result MATERIAL ANALYST Negative Normal [facility] Comment on above: Result Comment: Nega tive for COVID19 (SARS CoV2) by PCR. This test was developed and its performance characteristics determined by [facility] [place]. This test has been authorized by FDA under an Emergency Use Authorization (EUA). This test has been validated in accordance with the FDA's Guidance Document Policy for Diagnostics Testing in Laboratories Certified to Perform High Complexity Testing under CLIA prior to Emergency use Authorization for Coronavirus Disease 2019 during the Public Health Emergency issued on December 25, 2019. [facility] [address] [place] [address] Kai Ribeiro III, M.D. [id number] Performed By: #### 2 [id number] #### [facility],[address] [place] [address] COVID 19 Source MATERIAL ANALYST Nasopharyngeal Swab Normal [facility] Comment on above: Result Comment: Vanessa ected on 06/14 AT 1101: Previously reported as NASAL SWAB Performed By: #### 2 [id number] #### [facility],[address] [place] [address] Coronavirus 2019on 0 COVID 19 Result MATERIAL ANALYST Normal Negative for COVID19 (SARS CoV2) by PCR. [facility] Comment on above: Result Comment: Nega tive for This test was developed and its performance characteristics determined by [facility] [place]. This test has been authorized by FDA [...] developed and its performance characteristics determined by [facility] [place]. This test has been authorized by FDA [...] developed and its performance characteristics determined by [facility] [place]. This test has been authorized by FDA [...] 2019. Coronavirus 2019on 0 COVID 19 Source MATERIAL ANALYST Normal [facility] Comment on above: Result Comment: Naso pharyngeal Corrected on 06/14 AT 1101: Previously reported as NASAL SWAB Swab Corrected on 06/14 AT 1101: Previously reported as NASAL SWAB Vital Signs Date Time Vital Sign Value Performing Clinician Macie grewal 05-06-2025 13:52-0400 Body temperature 99.5 [degF] Meek Gould MD Work Phone: [facility] 05-06-2025 13:52-0400 Body weight 70.9 kg Meek Gould MD Work Phone: [facility] 05-06-2025 13:52-0400 Diastolic blood pressure 67 mm[Hg] Meek Gould MD Work Phone: [facility] 05-06-2025 13:52-0400 Heart rate 100 /min Meek Gould MD Work Phone: [facility] 05-06-2025 13:52-0400 Respiratory rate 18 /min Meek Gould MD Work Phone: [facility] 05-06-2025 13:52-0400 SaO2% (BldA) [Mass fraction] 100 % Meek Gould MD Work Phone: [facility] 05-06-2025 13:52-0400 Systolic blood pressure 118 mm[Hg] Meek Gould MD Work Phone: [facility] 01-11-2025 17:02-0400 Body temperature 98.2 [degF] Itzel Linder APRN.MOLD INJECTOR Work Phone: [facility] 01-11-2025 17:02-0400 Body weight 69.7 kg Itzel Linder APRN.MOLD INJECTOR Work Phone: [facility] 01-11-2025 17:02-0400 Diastolic blood pressure 72 mm[Hg] Itzel Linder APRN.MOLD INJECTOR Work Phone: [facility] 01-11-2025 17:02-0400 Heart rate 80 /min Itzel Linder APRN.MOLD INJECTOR Work Phone: [facility] 01-11-2025 17:02-0400 Respiratory rate 16 /min Itzel Linder APRN.MOLD INJECTOR Work Phone: [facility] 01-11-2025 17:02-0400 SaO2% (BldA) [Mass fraction] 97 % Itzel Linder APRN.MOLD INJECTOR Work Phone: [facility] 01-11-2025 17:02-0400 Systolic blood pressure 120 mm[Hg] Itzel Linder APRN.MOLD INJECTOR Work Phone: [facility] 01-01-2025 01:55-0500 Body temperature 98 [degF] Dr. Michael Waterman MD Work Phone: [facility] 01-01-2025 01:55-0500 Diastolic blood pressure 62 mm[Hg] Dr. Michael Waterman MD Work Phone: [facility] 01-01-2025 01:55-0500 Heart rate 72 /min Dr. Michael Waterman MD Work Phone: [facility] 01-01-2025 01:55-0500 Respiratory rate 18 /min Dr. Michael Waterman MD Work Phone: [facility] 01-01-2025 01:55-0500 SaO2% (BldA) [Mass fraction] 100 % Dr. Michael Waterman MD Work Phone: [facility] 01-01-2025 01:55-0500 Systolic blood pressure 123 mm[Hg] Dr. Michael Waterman MD Work Phone: [facility] 01-01-2025 00:36-0500 Body height 162.[address] Michael Waterman MD Work Phone: [facility] 01-01-2025 00:36-0500 Body mass index (BMI) [Ratio] 27.3 kg/m2 Dr. Michael Waterman MD Work Phone: [facility] 01-01-2025 00:36-0500 Body weight 72.[address] Michael Waterman MD Work Phone: [facility] 04-30-2022 18:21-0400 Body temperature 98.6 [degF] Giorgio Chawla ASSOCIATE PROFESSOR OF MEDIA ARTS.MOLD INJECTOR Work Phone: [facility] 04-30-2022 18:21-0400 Body weight 71.85 kg Giorgio Chawla ASSOCIATE PROFESSOR OF MEDIA ARTS.MOLD INJECTOR Work Phone: [facility] 04-30-2022 18:21-0400 Diastolic blood pressure 80 mm[Hg] Giorgio Chawla ASSOCIATE PROFESSOR OF MEDIA ARTS.MOLD INJECTOR Work Phone: [facility] 04-30-2022 18:21-0400 Heart rate 69 /min Giorgio Chawla ASSOCIATE PROFESSOR OF MEDIA ARTS.MOLD INJECTOR Work Phone: [facility] 04-30-2022 18:21-0400 Respiratory rate 18 /min Giorgio Cammy ASSOCIATE PROFESSOR OF MEDIA ARTS.MOLD INJECTOR Work Phone: [facility] 04-30-2022 18:21-0400 SaO2% (BldA) [Mass fraction] 98 % Giorgio Chawla ASSOCIATE PROFESSOR OF MEDIA ARTS.MOLD INJECTOR Work Phone: [facility] 04-30-2022 18:21-0400 Systolic blood pressure 128 mm[Hg] Giorgio Chawla APRN.MOLD INJECTOR Work Phone: [facility] Encounters Encounter Date Encounter Type Care Provider Facility Start: 05-06-2025 End: 05-06-2025 Office outpatient visit 25 minutes Meek Goudl MD Work Phone: [facility] Comment on above: Sore throat (Primary Dx) Start: 05-06-2025 End: 05-06-2025 ambulatory [facility] Facility:[facility] Start: 01-11-2025 End: 01-11-2025 ambulatory [facility] Facility:[facility] Start: 01-11-2025 End: 01-11-2025 Patient encounter procedure Itzel Linder APRN.MOLD INJECTOR Work Phone: [facility] Comment on above: Visit for wound chec k (Primary Dx); Visit for suture removal Start: 01-01-2025 End: 01-01-2025 [facility] Start: 07-13-2024 End: 07-13-2024 ambulatory Carolyn Beka Facility:[facility] Start: 07-13-2024 ambulatory [place] Facility:[facility] Start: 07-13-2024 End: 07-17-2024 [facility] Start: 04-30-2022 End: 04-30-2022 Patient encounter procedure Giorgio Chawla APRN.MOLD INJECTOR Work Phone: [facility] Comment on above: Bacterial sinusitis (Primary Dx) Start: 06-12-2020 End: 06-12-2020 Patient encounter procedure STEPHANY LEW [facility] Procedures Date Procedure Procedure Detail Performing Clinician Start: 05-06-2025 Iadna streptococcus group a amplified probe tq Meek Gould MD Work Phone: Start: 01-11-2025 REMOVAL SUTURES OR S TAPLES NOT REQUIRING ANESTHESIA Itzel Linder APRN.MOLD INJECTOR Work Phone: Start: 01-15-2012 Adult depression scr eening assessment Giorgio Chawla APRN.MOLD INJECTOR Work Phone: Plan of Treatment Date Care Activity Detail Author Start: 01-01-2035 Urine microalbumin profile DTaP,Tdap,Td Vaccine (7 - Td or Tdap) [facility] Start: 06-27-2025 Influenza vaccination Influenza Vacc ine (#1) [facility] Start: 2025 Screening for malign ant neoplasm of breast Mammogram Screening [facility] Start: 01-01-2025 [facility] Start: 06-27-2024 Covid-19 Vaccine ( season) Covid-19 Vaccine () [facility] Start: 06-27-2024 Influenza vaccination Influenza Vacc ine (#1) [facility] Start: 06-27-2022 Influenza vaccination INFLUENZA (#1) [facility] Start: 12-25-2021 COVID-19 VACCINE (3 - Booster for Pfizer series) COVID-19 VACCINE (3 - Booster for Pfizer series) [facility] Start: 12-10-2016 PAP TESTING PAP TESTING [facility] Start: 2015 HPV TESTING HPV TESTING [facility] Start: 12-10-2014 Screening for malign ant neoplasm of cervix Cervical Cancer Screening [facility] Start: 01-14-2013 Adult depression screening assessment DEPRESSION SCREENING [facility] Start: 2003 Anxiety Screening Anxiety Screening [facility] Start: 2003 Depression Screening Depression Scre ening [facility] Start: 2003 HEPATITIS C SCREENING HEPATITIS C [facility] Start: 2003 Hepatitis C screening Hepatitis C [facility] Start: 04-02-2001 Urine microalbumin profile DTAP,TDAP,TD (6 - Tdap) [facility] Patient Education Tdap Vaccine E D Dog Bite ED Laceration, All Closures [facility] Work Phone: Patient referral [facility] Work Phone: Immunizations Immunization Date Immunization Notes Care Provider Fa cility 01-01-2025 tetanus toxoid, redu charleen diphtheria toxoid, and acellular pertussis vaccine, adsorbed Dr. Michael Waterman MD Work Phone: [facility] 08-20-2017 influenza, injectabl e, quadrivalent, preservative free Dr. Michael Waterman MD Work Phone: [facility] 08-20-2017 influenza, seasonal, injectable [facility] Work Phone: 09-05-2009 novel influenza-H1N1 -09, all formulations Giorgio Chawla ASSOCIATE PROFESSOR OF MEDIA ARTS.MOLD INJECTOR Work Phone: [facility] Work Phone: 07-09-2003 meningococcal polysaccharide vaccine (MPSV4) Giorgio Chawla ASSOCIATE PROFESSOR OF MEDIA ARTS.MOLD INJECTOR Work Phone: [facility] 03-11-2003 tuberculin skin test ; purified protein derivative solution, intradermal Itzel Linder ASSOCIATE PROFESSOR OF MEDIA ARTS.MOLD INJECTOR Work Phone: [facility] 10-05-2001 hepatitis B vaccine, pediatric or pediatric/adolescent dosage Giorgio Chawla ASSOCIATE PROFESSOR OF MEDIA ARTS.MOLD INJECTOR Work Phone: [facility] 05-04-2001 hepatitis B vaccine, pediatric or pediatric/adolescent dosage Giorgio Chawla ASSOCIATE PROFESSOR OF MEDIA ARTS.MOLD INJECTOR Work Phone: [facility] 04-01-2001 hepatitis B vaccine, pediatric or pediatric/adolescent dosage Giorgio Chawla ASSOCIATE PROFESSOR OF MEDIA ARTS.MOLD INJECTOR Work Phone: [facility] 04-01-2001 tetanus and diphther ia toxoids, adsorbed, preservative free, for adult use (2 Lf of tetanus toxoid and 2 Lf of diphtheria toxoid) Giorgio Chawla APRN.MOLD INJECTOR Work Phone: [facility] 09-22-1999 influenza virus vacc ine, unspecified formulation Giorgio Chawla ASSOCIATE PROFESSOR OF MEDIA ARTS.MOLD INJECTOR Work Phone: [facility] 06-14-1997 measles, mumps and rubella virus vaccine Giorgio Chawla ASSOCIATE PROFESSOR OF MEDIA ARTS.MOLD INJECTOR Work Phone: [facility] 06-11-1990 diphtheria, tetanus toxoids and acellular pertussis vaccine Giorgio Chawla ASSOCIATE PROFESSOR OF MEDIA ARTS.MOLD INJECTOR Work Phone: [facility] 06-11-1990 trivalent poliovirus vaccine, live, oral Giorgio Chawla ASSOCIATE PROFESSOR OF MEDIA ARTS.MOLD INJECTOR Work Phone: [facility] 04-15-1987 diphtheria, tetanus toxoids and acellular pertussis vaccine Giorgio Chawla ASSOCIATE PROFESSOR OF MEDIA ARTS.MOLD INJECTOR Work Phone: [facility] 04-15-1987 haemophilus influenz ae type b vaccine, conjugate unspecified formulation [facility] ASSOCIATE PROFESSOR OF MEDIA ARTS.MOLD INJECTOR Work Phone: [facility] 04-15-1987 trivalent poliovirus vaccine, live, oral [facility] ASSOCIATE PROFESSOR OF MEDIA ARTS.MOLD INJECTOR Work Phone: [facility] 06-17-1986 measles, mumps and rubella virus vaccine [facility] ASSOCIATE PROFESSOR OF MEDIA ARTS.MOLD INJECTOR Work Phone: [facility] 1985 diphtheria, tetanus toxoids and acellular pertussis vaccine [facility] ASSOCIATE PROFESSOR OF MEDIA ARTS.MOLD INJECTOR Work Phone: [facility] 1985 diphtheria, tetanus toxoids and acellular pertussis vaccine [facility] ASSOCIATE PROFESSOR OF MEDIA ARTS.MOLD INJECTOR Work Phone: [facility] 1985 trivalent poliovirus vaccine, live, oral [facility] ASSOCIATE PROFESSOR OF MEDIA ARTS.MOLD INJECTOR Work Phone: [facility] 1985 diphtheria, tetanus toxoids and acellular pertussis vaccine [facility] ASSOCIATE PROFESSOR OF MEDIA ARTS.MOLD INJECTOR Work Phone: [facility] 1985 trivalent poliovirus vaccine, live, oral [facility] ASSOCIATE PROFESSOR OF MEDIA ARTS.MOLD INJECTOR Work Phone: [facility] Payers Date Payer Category Payer Self-pay [id number] 2019 Private Health Insurance MMO SUP ERMED PPO [id number] 2019 Unknown MMO MMO SUPERMED PLUS [id number] 2019-Present [phone] [address] [place] [address] O [id number] 2019 Unknown [id number] 1985 Unknown [id number] Unknown [facility] [id number] Unknown [id number] Unknown [id number] Unknown [id number] Unknown [id number] Unknown [id number] Unknown [id number] Unknown [id number] Unknown [id number] Unknown [id number] Social History Date Type Detail Facility Start: 01-01-2025 Tobacco smoking stat [facility] Never smoked tobacco [facility] Work Phone: Start: 04-30-2022 End: 05-06-2025 Alcohol intake Current drinker of alcohol (finding) [facility] Start: 1985 Sex Assigned At Not on file [facility] Start: 1985 Sex Assigned At Female W olivan [facility] Start: 10-04-2020 End: 06-12-2022 History of Social function [facility] Start: 10-04-2020 End: 06-12-2022 Tobacco use panel [facility] Work Phone: National Score (1-10 0), lower number is lower risk Not on file [facility] Start: 01-01-2025 Sex Female (finding) [place] [facility] Functional Status Date Assessment Result Facility 01-10-2015 Are you deaf, or do you have serious difficulty hearing No 01/10/2015 7:38 AM EDT Margarita Perez LPN No [facility] 01-10-2015 Are you blind, or do you have serious difficulty seeing, even when wearing glasses No 01/10/2015 7:38 AM EDT Margarita Perez LPN No [facility] 01-10-2015 Do you have serious difficulty walking or climbing stairs No 01/10/2015 7:38 AM EDT Margarita Perez LPN No [facility] 01-10-2015 Do you have difficul ty dressing or bathing No 01/10/2015 7:38 AM EDT Margarita Perez LPN No [facility] 01-10-2015 Because of a physica l, mental, or emotional condition, do you have difficulty doing errands alone such as visiting a physician's office or shopping No 01/10/2015 7:38 AM EDT Margarita Perez LPN No [facility] Mental Status Date Assessment Result Facility 01-10-2015 Because of a physica l, mental, or emotional condition, do you have serious difficulty concentrating, remembering, or making decisions No 01/10/2015 7:38 AM EDT Margarita Perez LPN No [facility] Clinical Notes 11-19-2010 to 05-06-2025 Meek Gould MD - 05/06/2025 2:09 PM EDTPatient Itzel Bishop APRN.MOLD INJECTOR - 01/11/2025 5:02 PM EDTPatient Anca Chawla APRN.MOLD INJECTOR - 04/30/2022 6:28 PM EDT Note Date & Type Note Facility 05-06-2025 Note HNO ID: [id number] Author: MEEK GOULD MD Service: ? Author [...] suggestive Disposition The patient was discharged. Procedures [facility] 05-06-2025 History of Presen t illness [...] was discharged. Procedures documented in this encounter [facility] 05-06-2025 Instructions Meek Gould MD - 05/06/2025 [...] to 3 days. documented in this encounter [facility] 01-11-2025 Note HNO ID: [id number] Author: ITZEL LINDER APRN.MOLD INJECTOR Service: ? Author Type: Nurse Practitioner Type: [...] history is provided by the patient. No school speech language pathologist was used. Suture Removal Review of Systems [...] 01/11/2025 5:06 PM Performed by: Itzel Linder APRN.MOLD INJECTOR Authorized by: Itzel Linder APRN.MOLD INJECTOR Location: Body area: Upper extremity Location details: Left lower arm Procedure details: Wound appearance: Clean Suture not placed during surgical procedure [facility] 01-11-2025 History of Presen t illness [...] history is provided by the patient. No school speech language pathologist was used. Suture Removal Review of Systems [...] 01/11/2025 5:06 PM Performed by: Itzel Linder APRN.MOLD INJECTOR Authorized by: Itzel Linder APRN.SILVIA Location: Body area: Upper extremity Location details: Left lower arm Procedure details: Wound appearance: Clean Suture not placed during surgical procedure documented in this encounter [facility] 01-01-2025 Discharge summary [facility] 07-17-2024 Note [facility] Medical Records Department [address] [place] [address] Discharge Summary 07/17/24 1710 MR#: [id number] Acct: [id number] Name: WENDY DE JESUS Rep #: [id number] : 1985 39 From: Denny Bennett MD PCP: Dr. Filippo Huang DO Status:DIS IN [id number] Providers Date of Admission: 07/13/24 Primary Care [...] of skin Medications at Discharge Home Medications multivitamin,[id number]-rvut-[id number] (Complete Multivitamin tablet) 1 tab PO QDAY [...] is already looking for a neurologist in [place], [facility] will reach out to her for follow-up if [place] does not work out in time as [...] Tenderness to [place] (more content not included)... [facility] 04-30-2022 Instructions Giorgio Chawla APRN.CNP - 04/30/2022 6:41 PM EDT Images from the original note were not included. Adult Sinusitis Patient Education What is Sinusitis? Sinusitis [nrvj-zwy-xcny-tis] is inflammation of the sinuses or swelling [...] help. You may be instructed to take curt-owl-ldwkncn medications for symptoms. including fever reducers acetaminophen or ibuprofen, nasal saline spray, cough and cold preparations and decongestants as prescribed by the physician, nurse practitioner or physician team assistant. Self-Care and Prevention: Rest Fluids for hydration Good hand washing Humidifier Avoid smoking and exposure to second hand smoke Avoid sick contacts documented in this encounter [facility] 04-30-2022 History of Present illness Narrative Subjective [...] Sinus: Maxillary sinus tenderness present. Mouth/Throat: Lips: [place]. Mouth: Mucous membranes are moist. Pharynx: Oropharynx [...] of care. This note was generated using [employer] [place] - 2 software. It may contain errors in wording, punctuation, or spelling. Giorgio Chawla APRN.SILVIA documented in this encounter [facility] 11-19-2010 History of Past i llness Narrative Problem Noted Date Resolved Date Surveillance of previously p rescribed intrauterine contraceptive device 11/19/2010 12/10/2011 Supervision of normal first 02/05/2007 07/26/2010 documented as of this encounter (statuses as of 04/30/2022) [facility] Michael Waterman [facility] Note Date/Time January 01, 2025 1:41 am [facility] Medical Records Department [address] [place] [address] Emergency Department Summary 01/01/25 MR#: [id number] Acct: [id number] Name: WENDY DE JESUS FEBRUARY Rep #:[id number] [...] No other injuries. Tetanus Immunization: >10 years [facility] Medical History no medical history no medical history Home Medications ?Medication ?Instructions ?Recorded ?Last Taken ?Type multivitamin,ei-ahfo-hbzlqfjx 1 tab PO QDAY 01/29/18 U nknown [...] Skin sutures Irrigated (ml): 50 Number of Sutures/[place]: 1 Suture Information: Ethilon, Horizontal, Mattress and [...] PO Q12H Qty: 20 0RF No Action multivitamin,ol-ngsw-oocsnvuj [Complete Multivitamin] tablet 1 tab PO QDAY [...] Referrals: Filippo Huang DO [Med Staff - Nailing Machine Operator Automatic] - 10-14 Days suture removal (or urgent care/ER) Print Language: Georgian Disposition Disposition: Home, Self Care What to do if you have Problems For any increased pain, shortness of breath, bleeding, nausea or vomiting, chestpain, or any unexpected problems, contact your Primary Care Provider. Call [facility] ([phone]) or report to the closest Emergency Room. Call 911 if necessary. 01/01/25 0141 <Electronically signed by Michael Waterman MD> Cosigner Signature (if applicable): CC: RIMA Lockett ~ Signed [facility] Work Phone: Evaluation note* Diagnosis Bacterial sinusitis- Primary Unspecified sinusitis (chronic) [facility] noteNo assessment information availableWUK Healthcare Work Phone: Evaluation note* Diagnosis Visit for wound check- Primary Encounter for other specified aftercare Visit for suture removal Encounter for removal of sutures [facility]* Diagnosis Sore throat- Primary Acute pharyngitis documented in this encounter [facility] Summary Purpose Family History No Family History Records FoundNo Family History Records FoundNo Family History Records FoundNo Family History Records Found Advance Directives No Advanced Directives Records FoundDocuments on File Type Date Recorded Patient Primary Teaching Assistant Expl anation Advance Directive(s) Advance Directive Response Recorded Date/ Time Living Will No January 01, 2025 12:39am Power of Kiln Burner No January 01 12:39am Chief Complaint and Reason for Visit Chief Complaint Admit Date bite January 01, 2025 12:3 5am Additional Source Comments INFORMATION SOURCE (unrecogn ized section and content) DATE CREATED AUTHOR 06/15/2020 [facility] DATE CREATED AUTHOR AUTHOR'S ORGANIZ ATION 06/17/2020 [facility] DATE CREATED AUTHOR AUTHOR'S ORGANIZ ATION 01/15/2025 [facility] DATE CREATED AUTHOR AUTHOR'S ORGANIZ ATION 05/16/2025 [facility] Source Comments (unrecognize d section and content) In the event this informatio n is protected by the Federal Confidentiality of Alcohol and Drug Abuse Patient Records regulations: The Federal rules restrict any use of the information to criminally investigate or prosecute any alcohol or drug abuse patient.[facility] the event this information is protected by the Federal Confidentiality of Alcohol and Drug Abuse Patient Records regulations: The Federal rules restrict any use of the information to criminally investigate or prosecute any alcohol or drug abuse patient.[facility] the event this information is protected by the Federal Confidentiality of Alcohol and Drug Abuse Patient Records regulations: The Federal rules restrict any use of the information to criminally investigate or prosecute any alcohol or drug abuse patient.[facility] Reason for Visit (unrecogniz ed section and [...] Care Teams (unrecognized sec tion and content) Paper Twister Relationship Specialty Start Date End Date Ofelia Lockett NP [address] [place] [id number] PCP - General Family Medicine 01/11/25 Team Status: Active Member Role Status Dates Ofelia Beto , MATERIAL ANALYST-C Primary Care Provider Active Team Status: Inactive Member Role Status Dates Dr. Michael Waterman MD Emergency Provider Active Start: January 01, 2025 End: January 01, 2025 Ofelia Lockett NP-Penny Primary Care Provider Active Start: January 01, 2025 End: January 01, 2025 Paper Twister Relationship Specialty Start Date End Date Ofelia Lockett NP [address] [place] [address] PCP - General Family Medicine 01/11/25 FOR [...] BE BASED ON THE PRIMARY CLINICAL RECORDS. [employer] provides no warranty or guarantee of the accuracy or completeness of information in this document.
== END | disposition home or self-care (01) ==
PROVIDERS: PCP Nurse Practitioner Family; Referring Provider Student in an Organized Health Care Education/Training Program; Visit Provider Student in an Organized Health Care Education/Training Program
DX: G35 Multiple sclerosis (principal)
CPT/HCPCS: 70553; 72156; 72157; A9575; A4216

== ENCOUNTER → 2025-08-03 | Outpatient (CLI) | payer OTHER, SELFPAY ==
[2025-08-11 16:09] LABS: HPV APTIMA, High Risk Negative (Negative)
== END | disposition home or self-care (01) ==
LOC: LABSPEC 15:31
PROVIDERS: PCP Nurse Practitioner Family; Visit Provider Nurse Practitioner Family
DX: Z12.4 Encounter for screening for malignant neoplasm of cervix (principal)
CPT/HCPCS: 87624; 88175; G0145

== ENCOUNTER → 2025-09-06 | Outpatient (CLI) | payer OTHER, SELFPAY ==
--- NOTE | 2025-09-06 12:15 | BI_ITS ---
EXAM: SCRN MAMM (CAD)W/[place] BILAT DATE: 09/06/2025 CLINICAL HISTORY: F, Age 40 y/o , SCREEN FOR BREAST CANCER TECHNIQUE: Procedure Code: [id number] Modality: MG Procedure: SCRN MAMM (CAD)W/[place] BILAT COMPARISON: Baseline exam. FINDINGS: TISSUE DENSITY: The breasts are heterogeneously dense, which may obscure small masses. Bilateral Breast Mammographic Findings: No significant masses, calcifications or other abnormalities are identified. BI/SCRN MAMM (CAD)W/[place] BILAT IMPRESSION: No mammographic evidence of malignancy in either breast. OVERALL FINAL ASSESSMENT BI-RADS 1: NEGATIVE. RECOMMENDATION: Routine annual follow-up in 1 Year Additional Recommendation none A letter with findings and recommendations will be mailed to the patient. Reading Location: [id number]
== END | disposition home or self-care (01) ==
PROVIDERS: PCP Nurse Practitioner Family; Referring Provider Nurse Practitioner Family; Visit Provider Nurse Practitioner Family
DX: Z12.31 Encounter for screening mammogram for malignant neoplasm of breast (principal)
CPT/HCPCS: 77063; 77067